=== PATIENT | male | born 1930 | race Caucasian/White ===

== ENCOUNTER 2017-08-02 15:06 | Emergency (ER) | payer MEDICARE ==
[~2017-08-02] VITALS: Ht 175.3 cm; Wt 95.0 kg
[~2017-08-02 15:06] MED LIST: PRED20 PO; PROS5TAB2 PO; RANI300T PO; TERA5CAP34 PO; ZYRT10TA12 PO
[2017-08-02 15:10] VITALS: BP 131/65; PULSE 100; RESP 18; TEMP 98.2; O2SAT 95
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
[2017-08-02] MEDS ORDERED: TERA5CAP3 PO (15:42)
[2017-08-02] MEDS ORDERED: TAMS5CAP PO (15:42)
[2017-08-02] MEDS ORDERED: KETOROLAC TROMETHAMINE 60 MG/2 ML (IM) VIAL IM ONE (15:45)
[2017-08-02] MEDS ORDERED: ORPHENADRINE INJ 60 MG/2 ML AMP IM ONE (15:45)
[2017-08-02] MEDS ORDERED: MORPHINE SULFATE 8 MG/ML INJ IM ONE (15:45)
[2017-08-02 16:24] VITALS: RESP 18
--- NOTE | 2017-08-02 17:24 | RADRPT ---
EXAM DATE/TIME: 08/02/2017 16:52 [facility] COMPARISON: CT BRAIN W/O CONTRAST, September 16, 2013, 13:10. INDICATIONS : Cephalgia. RADIATION DOSE: 59.16 CTDIvol (mGy) MEDICAL HISTORY : Gastroesophageal reflux disease. Hypertension. SURGICAL HISTORY : Appendectomy. Cholecystectomy. ENCOUNTER: Initial ACUITY: 3 days PAIN SCALE: 5/10 LOCATION: cranial TECHNIQUE: Multiple contiguous axial images were obtained of the head. Using automated exposure control and adj ustment of the mA and/or kV according to patient size, radiation dose was kept as low as reasonably a chievable to obtain optimal diagnostic quality images. DICOM format image data is available electro nically for review and comparison. FINDINGS: CEREBRUM: The ventricles are normal for age. No evidence of midline shift, mass lesion, hemorrhage or acute in farction. No extra-axial fluid collections are seen. POSTERIOR FOSSA: The cerebellum and brainstem are intact. The 4th ventricle is midline. The cerebellopontine angle i s unremarkable. EXTRACRANIAL: The visualized portion of the orbits is intact. SKULL: The calvaria is intact. No evidence of skull fracture. CONCLUSION: Negative for an acute process. Tesfaye Medina MD FACR on August 02, 2017 at 17:22 Board Certified Radiologist. This report was verified electronically.
--- NOTE | 2017-08-02 17:30 | RADRPT ---
EXAM DATE/TIME: 08/02/2017 16:52 [facility] COMPARISON: CT CERVICAL SPINE W/O CONTRAST, September 16, 2013, 13:10. INDICATIONS : Right neck pain. RADIATION DOSE: 26.51 CTDIvol (mGy) MEDICAL HISTORY : Gastroesophageal reflux disease. Hypertension. SURGICAL HISTORY : Appendectomy. Cholecystectomy. ENCOUNTER: Initial ACUITY: 3 days PAIN SCALE: 9/10 LOCATION: Right neck TECHNIQUE: Volumetric scanning of the cervical spine was performed. Multiplanar reconstructions in the sagittal, coronal and oblique axial planes were performed. Using automated exposure control and adjustment o f the mA and/or kV according to patient size, radiation dose was kept as low as reasonably achievable to obtain optimal diagnostic quality images. DICOM format image data is available electronically f or review and comparison. FINDINGS: VERTEBRAE: Normal vertebral body height. ALIGNMENT: No evidence of subluxation. C2-C3: Mild facet disease is present bilateral neural foramina encroachment. C3-C4: Moderate facet disease is present bilateral neural foramina encroachment. C4-C5: Mild facet disease worse on the right than left with significant neural foraminal encroachment. Ther e is no significant spinal stenosis. C5-C6: Moderate bilateral foraminal encroachment worse on the right than the left. Mild to moderate spinal stenosis. C6-C7: Mild uncinate ridging present with minimal bilateral foraminal encroachment. C7-T1: The bony spinal canal is normal in size. No evidence of disc bulge or herniation. The neural forami na are bilaterally patent. CONCLUSION: Degenerative changes as described above predominantly neural foramina encroachment no t fracture. Tesfaye Medina MD FACR on August 02, 2017 at 17:27 Board Certified Radiologist. This report was verified electronically.
[2017-08-02] MEDS ORDERED: CYCL5TAB PO (18:00)
[2017-08-02] MEDS ORDERED: HYDR-3516 PO (18:00)
== END 2017-08-02 18:23 | disposition home or self-care (01) ==
LOC: PHEFT 15:06
DX: M62.838 Other muscle spasm (principal); M43.6 Torticollis; E11.9 Type 2 diabetes mellitus without complications; I10 Essential (primary) hypertension; E78.00 Pure hypercholesterolemia, unspecified; Z87.39 Personal history of other diseases of the musculoskeletal system and connective tissue; Z86.79 Personal history of other diseases of the circulatory system; Z87.19 Personal history of other diseases of the digestive system; Z86.69 Personal history of other diseases of the nervous system and sense organs
CPT/HCPCS: 70450; 72125; 96372; 99284; J1885; J2270; J2360

== ENCOUNTER → 2017-09-09 | Day surgery (SDC) | payer MEDICARE ==
[~2017-09-09] MED LIST changes: +CYCL5TAB PO; +HYDR-3516 PO; +LACTATED RINGER'S 1000 ML INJ 1,000 ML ONE; -PRED20 PO; +PROPOFOL 200 MG/20 ML AMP IV ONE; -PROS5TAB2 PO; -RANI300T PO; +TAMS5CAP PO; +TERA5CAP3 PO; -TERA5CAP34 PO; -ZYRT10TA12 PO
--- NOTE | 2017-09-09 12:32 | GIPROC ---
[facility] [address] [place], [address] COLONOSCOPY PROCEDURE REPORT EXAM DATE: 09/09/2017 PATIENT NAME: Daljit Hgaen MR #: [id number] BIRTHDATE: 1930 ENDOSCOPIST: Dale Stroud MD ORDER #: [id number] SEWER HEAD: Melvina Reid RN STATUS: outpatient INDICATIONS: The patient is a 87 yr old male here for a colonoscopy due to anemia, non-specific PROCEDURE PERFORMED: Colonoscopy with polypectomy MEDICATIONS: None and Per Anesthesia. PREP QUALITY: good ESTIMATED BLOOD LOSS: None CONSENT: The patient understands the risks and benefits of the procedure and understands that these risks include, but are not limited to: sedation, allergic reaction, infection, perforation and/or bleeding. Alternative means of evaluation and treatment include, among others: physical exam, x-rays, and/or surgical intervention. The patient elects to proceed with this endoscopic procedure. medical equipment was checked for proper function. Hand hygiene and appropriate measures for infection prevention was taken. After the risks, benefits and alternatives of the procedure were thoroughly explained, Informed consent was verified, confirmed and timeout was successfully executed by the treatment team. A digital exam revealed no abnormalities of the rectum The EC-[id number] ([id number] endoscope was introduced through the anus and advanced to the cecum, which was identified by both the appendix and ileocecal valve. The instrument was then slowly withdrawn as the colon was fully examined. COLON FINDINGS: A small smooth sessile polyp was found in the distal transverse colon. A polypectomy was performed with a cold snare. The resection was complete and the polyp tissue was completely retrieved. Severe diverticulosis was noted in the descending colon and sigmoid colon. The colon mucosa was otherwise normal. Retroflexed views revealed no abnormalities The scope was then completely withdrawn from the patient and the procedure terminated. PROCEDURE WITHDRAWAL TIME:6.3minutes ADVERSE EVENTS: There were no complications. IMPRESSIONS: 1. A small sessile polyp was found in the distal transverse colon; polypectomy was performed with a cold snare 2. Severe diverticulosis was noted in the descending colon and sigmoid colon 3. The colon mucosa was otherwise normal 4. Retroflexed views revealed no abnormalities 5. Revealed no abnormalities of the rectum RECOMMENDATIONS: 1. Await biopsy results. Biopsy results will not be ready for 7-10 days. If you don't hear from us in two weeks, call our office for results. 2. Yearly hemoccult 3. High fiber diet 4. Follow-up: GI Clinic 4 week(s) RECALL: Return 5 years Colonoscopy Dale Stroud MD eSigned: Dale Stroud MD 09/09/2017 12:31 PM cc: Marvel Smith M.D and Mike Hillman [facility] [place]
--- NOTE | 2017-09-09 12:37 | GIPROC ---
[facility] [address] [place], [address] EGD PROCEDURE REPORT EXAM DATE: 09/09/2017 PATIENT NAME: Daljit Hagen MR #: [id number] BIRTHDATE: 1930 ATTENDING: Dale Stroud MD ORDER #: [id number] CYLINDER HONER: Melvina Reid RN STATUS: outpatient INDICATIONS: The patient is a 87 yr old male here for an EGD due to anemia PROCEDURE PERFORMED: EGD w/ biopsy MEDICATIONS: None, Per Anesthesia, None, and Per Anesthesia. TOPICAL ANESTHETIC: CONSENT: The patient understands the risks and benefits of the procedure and understands that these risks include, but are not limited to: sedation, allergic reaction, infection, perforation and/or bleeding. Alternative means of evaluation and treatment include, among others: physical exam, x-rays, and/or surgical intervention. The patient elects to proceed with this endoscopic procedure. medical equipment was checked for proper function. Hand hygiene and appropriate measures for infection prevention was taken. After the risks, benefits and alternatives of the procedure were thoroughly explained, Informed consent was verified, confirmed and timeout was successfully executed by the treatment team. The patient was anesthetized with topical anesthesia and the EC-3490Li ([id number]) endoscope was introduced through the mouth and advanced to the second portion of the duodenum. Retroflexed views revealed no abnormalities The gastroscope was then slowly withdrawn and removed. ESOPHAGUS: A mildly severe Schatzki ring was found at the gastroesophageal junction. The endoscopy was otherwise normal. Duodenal biopsies taken. STOMACH: A large hiatal hernia was noted. There was erythematous moderate and erosive gastritis in the gastric body and gastric antrum. Multiple biopsies were performed. DUODENUM: Duodenal diverticlum. ADVERSE EVENTS: There were no complications. IMPRESSIONS: 1. Schatzki ring was found at the gastroesophageal junction 2. Normal endoscopy otherwise 3. Large hiatal hernia 4. There was erythematous gastritis in the gastric body and gastric antrum; multiple biopsies were performed 5. Duodenal diverticlum 6. Retroflexed views revealed no abnormalities RECOMMENDATIONS: 1. Await biopsy results. Biopsy results will not be ready for 7-10 days. If you don't hear from us in two weeks, call our office for biopsy results. 2. Follow-up: GI clinic 3 week(s) PATIENT CONDITION: stable DISPOSITION: Home REPEAT EXAM: Dale Stroud MD eSigned: Dale Stroud MD 09/09/2017 12:36 PM cc: Marvel Hillman [facility] [place] PATIENT NAME: Xiao Daljit Mellisa MR#: [id number]
== END | disposition home or self-care (01) ==
LOC: ESDC 10:15
PROVIDERS: ATTEND Internal Medicine Gastroenterology
DX: D64.9 Anemia, unspecified (principal); D12.3 Benign neoplasm of transverse colon; K57.90 Diverticulosis of intestine, part unspecified, without perforation or abscess without bleeding; K22.2 Esophageal obstruction; K44.9 Diaphragmatic hernia without obstruction or gangrene; K29.70 Gastritis, unspecified, without bleeding
CPT/HCPCS: 00740; 00810; 43239; 45385; 88305; 88312; J7120

== ENCOUNTER 2018-01-15 10:05 | Day surgery (SDC) | payer MEDICARE ==
[~2018-01-15] VITALS: Ht 175.3 cm; Wt 93.2 kg
[~2018-01-15 10:05] MED LIST changes: +FLAX10002 PO; -LACTATED RINGER'S 1000 ML INJ 1,000 ML ONE; +MAGN100T2 PO; +MULT1TAB46 PO; +OMEGCAP PO; -PROPOFOL 200 MG/20 ML AMP IV ONE; +SOUR1000; +TIMO0.5S30 EACH EYE
[2018-01-15 10:22] VITALS: BP 172/85; PULSE 89; RESP 20; TEMP 98; O2SAT 95
[2018-01-15] MEDS ORDERED: VITA1000 PO (10:29)
[2018-01-15] MEDS ORDERED: FERR1TAB37 PO (10:29)
[2018-01-15 10:56] LABS: AUTOMATED NEUTROPHIL # 2.1 TH/MM3 (1.8-7.7); BASOPHIL % 0.3 % (0.0-2.0); EOSINOPHIL # 0.1 TH/MM3 (0-0.4); EOSINOPHIL % 2.2 % (0.0-4.0); HEMATOCRIT 27.6 % (39.0-51.0); HEMOGLOBIN 9.8 GM/DL (13.0-17.0); LYMPH % 23.1 % (9.0-44.0); LYMPHOCYTE # 0.9 TH/MM3 (1.0-4.8); MEAN CORPUSCULAR HEMOGLOBIN 40.7 PG (27.0-34.0); MEAN CORPUSCULAR HGB CONC 35.4 % (32.0-36.0); MEAN PLATELET VOLUME 7.6 FL (7.0-11.0); MONO % 17.9 % (0.0-8.0); MONOCYTE # 0.7 TH/MM3 (0-0.9); NEUT % 56.5 % (16.0-70.0); PLATELET COUNT 138 TH/MM3 (150-450); RED CELL DISTRIBUTION WIDTH 15.4 % (11.6-17.2); WHITE BLOOD COUNT 3.8 TH/MM3 (4.0-11.0)
[2018-01-15] MEDS ORDERED: SODIUM CHLOR 0.9% 1000 ML IV SCH (11:00)
[2018-01-15 11:08] LABS: INTERNATIONAL NORMALIZED RATIO 1.1 RATIO; PROTHROMBIN TIME - PATIENT 11.1 SEC (9.8-11.6)
[2018-01-15] MEDS ORDERED: LIDOCAINE HCL 1% 20 ML VIAL ONE (11:09)
[2018-01-15] MEDS ORDERED: fentaNYL CITRATE 250 MCG/5 ML AMP ONE (11:20)
[2018-01-15] MEDS ORDERED: MIDAZOLAM HCL 5 MG/5 ML VIAL ONE (11:20)
[2018-01-15 12:30] VITALS: BP 142/59; PULSE 82; RESP 18; TEMP 97.9; O2SAT 91
[2018-01-15 12:45] VITALS: BP 129/62; PULSE 78; RESP 20; O2SAT 95
[2018-01-15 13:15] VITALS: BP 135/76; PULSE 88; RESP 18; O2SAT 96
--- NOTE | 2018-01-15 13:34 | RADRPT ---
EXAM DATE/TIME: 01/15/2018 12:04 [facility] COMPARISON: No previous studies available for comparison. INDICATIONS : Pancytopenia and anemia. SEDATION TIME: 15 minutes BIOPSY SITE: Right ilium. MEDICATION(S): 1.) 2.5 mg midazolam (Versed) IV 2.) 125 mcg fentanyl (Sublimaze) IV DEVICE(S): 1.) 12 gauge Bone marrow biopsy needle MEDICAL HISTORY : Hypertension. Gastroesophageal reflux disease. Diabetes mellitus type 2. Anemia. SURGICAL HISTORY : Appendectomy. Cholecystectomy. ENCOUNTER: Initial ACUITY: 1 day PAIN SCORE: 0/10 LOCATION: Right pelvis A total of one core specimen(s) were obtained and sent to the laboratory for pathologic evaluation. PROCEDURE: 1. CT guided bone marrow biopsy. Prior to the procedure informed consent was obtained. Any appropriate prior imaging studies were rev iewed. Using automated exposure control and adjustment of the mA and/or kV according to patient size , radiation dose was kept as low as reasonably achievable to obtain optimal diagnostic quality images . DICOM format image data is available electronically for review and comparison. The site was prepped in a sterile fashion. Full sterile technique was used, including cap, mask, daniel rile gloves and gown and a large sterile sheet. Hand hygiene and 2% chlorhexidine and/or betadine/al cohol prep was utilized per protocol for cutaneous antisepsis. The skin and subcutaneous tissues wer e infiltrated with local anesthetic solution. With CT guidance the previously identified target was localized. Biopsy was performed using the presc ribed needle as above. Following biopsy marrow aspiration was performed with repeat puncture. Adequa te hemostasis was obtained with compression at the puncture site. Follow-up CT scan reveals no hemorrhage. Conscious sedation was performed with the prescribed dosages and duration as above in the presence of an independent trained radiology nurse to assist in the monitoring of the patient. EKG and oximetry remained stable throughout the procedure. The patient tolerated the procedure well and there were no complications. The patient was sent to Radiology Outpatient Unit in stable condition. CONCLUSION: 1. Uncomplicated CT guided bone marrow aspirate. 2. Uncomplicated CT guided bone marrow biopsy. Tesfaye Medina MD FACR on January 15, 2018 at 12:49 Board Certified Radiologist. This report was verified electronically.
[2018-01-15 13:45] VITALS: BP 129/60; PULSE 73; RESP 16; O2SAT 96
[2018-01-15 14:15] VITALS: BP 134/63; PULSE 73; RESP 18; O2SAT 97
== END 2018-01-15 14:45 | disposition home or self-care (01) ==
LOC: HRIP 10:05 → HRAD 10:05
PROVIDERS: ATTEND Internal Medicine Hematology & Oncology
DX: D61.818 Other pancytopenia (principal); D75.89 Other specified diseases of blood and blood-forming organs; D46.9 Myelodysplastic syndrome, unspecified; I10 Essential (primary) hypertension; K21.9 Gastro-esophageal reflux disease without esophagitis; E11.9 Type 2 diabetes mellitus without complications; E78.00 Pure hypercholesterolemia, unspecified; K44.9 Diaphragmatic hernia without obstruction or gangrene
CPT/HCPCS: 38222; 77012; 85025; 85097; 85610; 85730; 88184; 88185; 88237; 88264; 88280; 88305; 88311; 88313; 88341; 88342; 99152; C1830; G0463; J2250; J3010; 99211

== ENCOUNTER 2018-01-25 16:02 | Observation (INO) | payer MEDICARE ==
[~2018-01-25] VITALS: Ht 175.3 cm; Wt 87.0 kg
[~2018-01-25 16:02] MED LIST changes: -CYCL5TAB PO; +FERR1TAB37 PO; -HYDR-3516 PO; -TAMS5CAP PO; -TIMO0.5S30 EACH EYE; +VITA1000 PO
[2018-01-25 16:07] VITALS: BP 153/65; PULSE 102; RESP 16; TEMP 98.6; O2SAT 93
[2018-01-25] MEDS ORDERED: SODIUM CHLORIDE 0.9% FLUSH 10 ML FLUSH IV FLUSH PRN (16:30)
[2018-01-25] MEDS ORDERED: ONDANSETRON HCL 4 MG/2 ML VIAL IVP ONE (16:30)
[2018-01-25] MEDS ORDERED: MORPHINE SULFATE 4 MG/ML INJ IV PUSH ONE (16:30)
[2018-01-25 16:52] LABS: BASOPHIL % 0.6 % (0.0-2.0); EOSINOPHIL % 1.1 % (0.0-4.0); HEMATOCRIT 27.8 % (39.0-51.0); HEMOGLOBIN 9.6 GM/DL (13.0-17.0); LYMPH % 14.4 % (9.0-44.0); LYMPHOCYTE # 0.6 TH/MM3 (1.0-4.8); MEAN CELL VOLUME 116.7 FL (80.0-100.0); MEAN CORPUSCULAR HEMOGLOBIN 40.2 PG (27.0-34.0); MEAN CORPUSCULAR HGB CONC 34.4 % (32.0-36.0); MEAN PLATELET VOLUME 6.8 FL (7.0-11.0); MONO % 16.6 % (0.0-8.0); MONOCYTE # 0.7 TH/MM3 (0-0.9); NEUT % 67.3 % (16.0-70.0); PLATELET COUNT 176 TH/MM3 (150-450); RED BLOOD COUNT 2.39 MIL/MM3 (4.50-5.90); RED CELL DISTRIBUTION WIDTH 15.2 % (11.6-17.2); WHITE BLOOD COUNT 4.3 TH/MM3 (4.0-11.0)
--- NOTE | 2018-01-25 16:58 | PD ---
HPI Chief Complaint: Musculoskeletal Complaint Time Seen by Provider: 16:15 Travel History International Travel<30 days: No Contact w/Intl Traveler<30days: No Traveled to known affect area: No History of Present Illness HPI 87-year-old male that presents to the ED for evaluation of right-sided back pain. Per patient she's had this on and off for the past 3 weeks but more severe since Saturday. Per patient for the past 5 days is becoming more significant. Per patient walking or moving makes it worse. Per patient he makes like a band on the right side into the front. He states that he also has some abdominal pain around the upper quadrant of the right side as well as the lower quadrant. Denies any bowel movement or urinary issues. She states when he had pain like this before he was told that he had something with his cecum that reversing itself and he was told that he could have this again. He is concerned that this might be it. He denies any chest pain or shortness of breath. No injuries or trauma. Per patient he is taking some ihdp-yam-exengoe remedies with no relief. Allergy to amoxicillin. No bowel movement or urinary issues. Denies any nausea or vomiting. Per patient the pain gets to be significantly 8 out of 10 especially with movement. No history of surgeries to the back but multiple surgeries to the abdomen. PFSH Past Medical History Arthritis: Yes Autoimmune Disease: No Blood Disorders: No Anxiety: No Depression: No Heart Rhythm Problems: No Cancer: No Cardiovascular Problems: No High Cholesterol: Yes Chemotherapy: No Chest Pain: No Congestive Heart Failure: No Diabetes: No Diminished Hearing: No Endocrine: No Gastrointestinal Disorders: Yes GERD: Yes Glaucoma: No Genitourinary: Yes Hepatitis: No Hiatal Hernia: No Hypertension: Yes Immune Disorder: No Kidney Stones: No Musculoskeletal: Yes (sciatia) Neurologic: No Psychiatric: No Reproductive: No Respiratory: No Myocardial Infarction: No Radiation Therapy: No Renal Failure: No Sickle Cell Disease: No Thyroid Disease: No Ulcer: Yes Past Surgical History Abdominal Surgery: Yes (APPENDECTOMY, CHOLOCYSTECTOMY) AICD: No Appendectomy: Yes Arteriovenous Shunt: No Cardiac Surgery: No Cholecystectomy: Yes Ear Surgery: No Endocrine Surgery: No Eye Surgery: Yes (BILAT CATARACT REMOVAL 2016) Genitourinary Surgery: No Gynecologic Surgery: No Insulin Pump: No Joint Replacement: No Oral Surgery: No Pacemaker: No Thoracic Surgery: No Other Surgery: Yes (x 30 yrs ago appendectomy, cholecystectomy, lumbar surgery x 47yrs ago) Social History Alcohol Use: No Tobacco Use: No Substance Use: No Allergies-Medications (Allergen,Severity, Reaction): Coded Allergies: amoxicillin (Verified Allergy, Intermediate, rash, 01/25/18) Reported Meds & Prescriptions Reported Meds & Active Scripts Active Hydrocodone-Acetamin 5-325 mg (Hydrocodone/Acetaminophen) 5 Mg-325 Mg Tablet 1 Tab PO Q6HR PRN Reported Slow Fe (Ferrous Sulfate) 142 Mg (45 Mg Iron) Tablet.er 47 Mg PO DAILY Vitamin D-1000 (Cholecalciferol) 1,000 Unit Tab 2,000 Units PO DAILY Tart Awad Extract (Sour Awad Extract) 1,000 Mg Capsule Multi Vitamin Daily (Multiple Vitamin) 1 Tab Tab 1 Tab PO DAILY Magnesium Citrate 100 Mg Tab 250 Mg PO DAILY PRN Flax Seed Oil 1000 mg (Flaxseed (Linseed)) 1,000 Mg Cap 1,000 Mg PO DAILY [place]-3 Fish Oil/Vitamin (Fish Oil-Cholecalciferol) 1,000-1,000 Mg Cap 1 Cap PO DAILY Terazosin (Terazosin HCl) 5 Mg Cap 5 Mg PO BID Review of Systems Except as stated in HPI: all other systems reviewed are Neg Physical Exam Narrative GENERAL: SKIN: Warm and dry. HEAD: Atraumatic. Normocephalic. EYES: Pupils equal and round. No scleral icterus. No injection or drainage. ENT: No nasal bleeding or discharge. Mucous membranes pink and moist. NECK: Trachea midline. No JVD. CARDIOVASCULAR: Regular rate and rhythm. RESPIRATORY: No accessory muscle use. Clear to auscultation. Breath sounds equal bilaterally. GASTROINTESTINAL: Abdomen soft, tender to touch in the right upper quadrant and right lower quadrant., nondistended. Hepatic and splenic margins not palpable. MUSCULOSKELETAL: Extremities without clubbing, cyanosis, or edema. No obvious deformities. Full range of motion of the upper and lower extremities bilaterally. No obvious lumbar, thoracic, cervical spine tenderness to palpation. Patient does appear to have some pain reproducible on the musculature of the right back. 2+ pulses bilaterally. NEUROLOGICAL: Awake and alert. No obvious cranial nerve deficits. Motor grossly within normal limits. Five out of 5 muscle strength in the arms and legs. Normal speech. PSYCHIATRIC: Appropriate mood and affect; insight and judgment normal. Data Data Last Documented VS Vital Signs Date Time Temp Pulse Resp B/P (MAP) Pulse Ox O2 Delivery O2 Flow Rate FiO2 01/25/18 19:16 92 20 139/62 (87) 93 Nasal Cannula 2.00 01/25/18 16:07 98.6 Orders Orders Complete Blood Count With Diff (01/25/18 16:24) Comprehensive Metabolic Panel (01/25/18 16:24) Lipase (01/25/18 16:24) Urinalysis - C+S If Indicated (01/25/18 16:24) Ct Abd/Pel W Iv Contrast(Rout) (01/25/18 16:24) Iv Access Insert/Monitor (01/25/18 16:24) Morphine Inj (Morphine Inj) (01/25/18 16:30) Ondansetron Inj (Zofran Inj) (01/25/18 16:30) Sodium Chloride 0.9% Flush (Ns Flush) (01/25/18 16:30) Ct Lumb Spine W Iv Contrast (01/25/18 ) Iohexol 350 Inj (Omnipaque 350 Inj) (01/25/18 17:54) Ed Discharge Order (01/25/18 18:22) Iohexol 350 Inj (Omnipaque 350 Inj) (01/25/18 18:23) Acetamin-Hydrocod 325-5 Mg ([place] 5-325 (01/25/18 18:45) Splint Or Brace Apply/Monitor (01/25/18 18:55) Admit Order (Ed Use Only) (01/25/18 19:33) Labs Laboratory Tests Test 01/25/18 16:45 White Blood Count 4.3 TH/MM3 Red Blood Count 2.39 MIL/MM3 Hemoglobin 9.6 GM/DL Hematocrit 27.8 % Mean Corpuscular Volume 116.7 FL Mean Corpuscular Hemoglobin 40.2 PG Mean Corpuscular Hemoglobin Concent 34.4 % Red Cell Distribution Width 15.2 % Platelet Count 176 TH/MM3 Mean Platelet Volume 6.8 FL Neutrophils (%) (Auto) 67.3 % Lymphocytes (%) (Auto) 14.4 % Monocytes (%) (Auto) 16.6 % Eosinophils (%) (Auto) 1.1 % Basophils (%) (Auto) 0.6 % Neutrophils # (Auto) 3.0 TH/MM3 Lymphocytes # (Auto) 0.6 TH/MM3 Monocytes # (Auto) 0.7 TH/MM3 Eosinophils # (Auto) 0.0 TH/MM3 Basophils # (Auto) 0.0 TH/MM3 CBC Comment DIFF FINAL Differential Comment Blood Urea Nitrogen 19 MG/DL Creatinine 0.78 MG/DL Random Glucose 118 MG/DL Total Protein 8.2 GM/DL Albumin 3.3 GM/DL Calcium Level 9.1 MG/DL Alkaline Phosphatase 139 U/L Aspartate Amino Transf (AST/SGOT) 18 U/L Alanine Aminotransferase (ALT/SGPT) 16 U/L Total Bilirubin 1.1 MG/DL Sodium Level 138 MEQ/L Potassium Level 3.5 MEQ/L Chloride Level 101 MEQ/L Carbon Dioxide Level 27.2 MEQ/L Anion Gap 10 MEQ/L Estimat Glomerular Filtration Rate 94 ML/MIN Lipase 71 U/L MDM Medical Decision Making Medical Screen Exam Complete: Yes Emergency Medical Condition: Yes Medical Record Reviewed: Yes Interpretation(s) CBC & BMP Diagram 01/25/18 16:45 Total Protein 8.2, Albumin 3.3 L, Calcium Level 9.1, Alkaline Phosphatase 139 H , Aspartate Amino Transf (AST/SGOT) 18, Alanine Aminotransferase (ALT/SGPT) 16, Total Bilirubin 1.1 H Last Impressions Abdomen/Pelvis CT 01/25/18 1624 Signed Impressions: Service Date/Time: Thursday, January 25, 2018 17:51 - CONCLUSION: 1. No acute abnormality to explain the patient's pain. 2. Bibasilar atelectasis. 3. Prior cholecystectomy. Kaiser Guevara Jr., MD Last Impressions Abdomen/Pelvis CT 01/25/184 Signed Impressions: Service Date/Time: Thursday, January 25, 2018 17:51 - CONCLUSION: 1. No acute abnormality to explain the patient's pain. 2. Bibasilar atelectasis. 3. Prior cholecystectomy. Kaiser Guevara Jr., MD Lumbar Spine CT 01/25/18 0000 Signed Impressions: Service Date/Time: Thursday, January 25, 2018 17:51 - CONCLUSION: 1. Mild compression fracture of T12 and moderate compression fracture of L5. 2. 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 3. Diffuse osteopenia. Marshall Perry MD Differential Diagnosis Fracture versus sprain versus strain versus acute abdomen versus obstruction versus liver injury versus kidney stone Narrative Course 87-year-old male that presents to the ED for evaluation of back pain. Patient was properly examined and was found to have signs and symptoms of unclear etiology. He also has abdominal pain and unclear if this is related to the back pain. I recommend labs and imaging. Patient agrees. Patient was given IV pain medications. Labs and imaging showed no sign of acute disease. CT lumbar spine did show however T12 and L5 compression fracture. Case discussed with Dr Luque who recommends 1) pain meds, TLSO and follow up outpatient if pain manageable. vs 2) admit and consult to him for PT and pain management and possible khypoplasty if no improvement. Patient still in a lot of discomfort with just sitting up. Even after pain meds given. He lives alone. I think is reasonable to admit for further eval. This was discussed with Dr Banda who agrees with admission plan. [facility] contacted and Dr Craig said to admit to Dr Paulson for patient to got to the main due to possible kyphoplasty. Diagnosis Primary Impression: Compression fracture of fifth lumbar vertebra Qualified Codes: S32.050A - Wedge compression fracture of fifth lumbar vertebra, initial encounter for closed fracture Additional Impression: T12 compression fracture Admitting Information Admitting Physician Requests: Observation Scripts Hydrocodone/Acetaminophen (Hydrocodone-Acetamin 5-325 mg) 5 Mg-325 Mg Tablet 1 TAB PO Q6HR Y for PAIN SCALE 1 TO 10, #12 Prov: Didier Banda MD 01/25/18 Vikash Alvarado Jan 25, 2018 16:58
[2018-01-25 17:01] LABS: CHLORIDE 101 MEQ/L (98-107); SODIUM (NA) 138 MEQ/L (136-145)
[2018-01-25 17:05] LABS: CALCIUM 9.1 MG/DL (8.5-10.1)
[2018-01-25 17:06] LABS: ALBUMIN 3.3 GM/DL (3.4-5.0); BICARBONATE 27.2 MEQ/L (21.0-32.0); BLOOD UREA NITROGEN 19 MG/DL (7-18); GLUCOSE,RANDOM 118 MG/DL (74-106)
[2018-01-25 17:09] LABS: ALT (GPT) 16 U/L (12-78); AST (GOT) 18 U/L (15-37); CREATININE 0.78 MG/DL (0.60-1.30); GLOMERULAR FILTRATION RATE 94 ML/MIN (>89)
[2018-01-25 17:10] LABS: TOTAL BILIRUBIN ADULT 1.1 MG/DL (0.2-1.0)
[2018-01-25 17:12] LABS: ALKALINE PHOSPHATASE 139 U/L (45-117); TOTAL PROTEIN 8.2 GM/DL (6.4-8.2)
[2018-01-25] MEDS ORDERED: IOHEXOL 350 MG/ML 10 ML VIAL (for RAD DIAG) IVCONTRAST ONE ×2 (17:54→18:23)
[2018-01-25 18:00] VITALS: BP 146/65; RESP 20
--- NOTE | 2018-01-25 18:08 | RADRPT ---
EXAM DATE/TIME: 01/25/2018 17:51 [facility] COMPARISON: No previous studies available for comparison. INDICATIONS : Abdomen pain. IV CONTRAST: 100 cc Omnipaque 350 (iohexol) IV ; Cumulative dose for multiple exams. ORAL CONTRAST: No oral contrast ingested. RADIATION DOSE: 19.98 CTDIvol (mGy) MEDICAL HISTORY : Hypertension. SURGICAL HISTORY : Cholecystectomy. Appendectomy.discectomy. ENCOUNTER: Initial ACUITY: 1 day PAIN SCALE: 5/10 LOCATION: Bilateral abdomen TECHNIQUE: Volumetric scanning of the abdomen and pelvis was performed. Using automated exposure control and ad justment of the mA and/or kV according to patient size, radiation dose was kept as low as reasonably achievable to obtain optimal diagnostic quality images. DICOM format image data is available electro nically for review and comparison. FINDINGS: LOWER LUNGS: Bibasilar atelectasis. The heart is at the upper limits of normal in terms of size. Small hiatal madonna ia. LIVER: Homogeneous density without lesion. There is no dilation of the biliary tree. Gallbladder is surgica lly absent. SPLEEN: Normal size without lesion. PANCREAS: Within normal limits. KIDNEYS: Normal in size and shape. There is no mass, stone or hydronephrosis. Tiny cortical renal cysts bilat erally. ADRENAL GLANDS: Within normal limits. VASCULAR: Diffuse calcified atherosclerotic plaque. No aneurysmal change. BOWEL/MESENTERY: The stomach, small bowel, and colon demonstrate no acute abnormality. There is no free intraperitone al air or fluid. ABDOMINAL WALL: Small umbilical hernia containing fat. This is broad-based in nature. RETROPERITONEUM: There is no lymphadenopathy. BLADDER: No wall thickening or mass. REPRODUCTIVE: Within normal limits. INGUINAL: There is no lymphadenopathy or hernia. MUSCULOSKELETAL: Within normal limits for patient age. CONCLUSION: 1. No acute abnormality to explain the patient's pain. 2. Bibasilar atelectasis. 3. Prior cholecystectomy. Kaiser Guevara Jr., MD on January 25, 2018 at 18:01 Board Certified Radiologist. This report was verified electronically.
[2018-01-25] MEDS ORDERED: HYDR-3516 PO (18:22)
--- NOTE | 2018-01-25 18:32 | RADRPT ---
EXAM DATE/TIME: 01/25/2018 17:51 [facility] COMPARISON: No previous studies available for comparison. INDICATIONS : Back pain IV CONTRAST: 100 cc Omnipaque 350 (iohexol) IV ; Cumulative dose for multiple exams. RADIATION DOSE: ; Reconstructed from previous dataset, no dose MEDICAL HISTORY : Hypertension. SURGICAL HISTORY : Cholecystectomy. Appendectomy.discectomy ENCOUNTER: Initial ACUITY: 1 day PAIN SCALE: 5/10 LOCATION: Bilateral lumbar TECHNIQUE: Volumetric scanning of the lumbar spine was performed. Multiplanar reconstructions in the sagittal, coronal and oblique axial planes were performed. Using automated exposure control and adjustment of the mA and/or kV according to patient size, radiation dose was kept as low as reasonably achievable t o obtain optimal diagnostic quality images. DICOM format image data is available electronically for review and comparison. FINDINGS: The bones are diffusely osteopenic. There is a mild compression fracture of T12 without retropulsion. There is a moderate compression fracture of L5 also without significant retropulsion. There is no significant stenosis at [id number]. At L2-3 there is a mild central canal lateral recess s tenosis and disc bulge and facet arthropathy. At L3-4 minimal lateral recess encroachment without significant central canal stenosis. At L4-5 there is a focal moderate to severe central canal stenosis from degenerative disc disease and facet arthropathy. At L5-S1 there is moderate bilateral foraminal stenosis. CONCLUSION: 1. Mild compression fracture of T12 and moderate compression fracture of L5. 2. 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 3. Diffuse osteopenia. Marshall Perry MD on January 25, 2018 at 18:25 Board Certified Radiologist. This report was verified electronically.
[2018-01-25] MEDS ORDERED: ACETAMINOPHEN/HYDROcodone 325 MG/5 MG TAB PO ONE (18:45)
[2018-01-25 19:16] VITALS: BP 139/62; PULSE 92; RESP 20; O2SAT 93
[2018-01-25] MEDS: TERAZOSIN HCL 5 MG CAP PO SCH (20:59)
[2018-01-25 21:17] VITALS: BP 134/53; PULSE 84; RESP 18; O2SAT 95
[2018-01-25 22:14] VITALS: BP 146/65
[2018-01-25] MEDS ORDERED: ONDANSETRON HCL 4 MG/2 ML VIAL IV PUSH ONE (22:15)
[2018-01-25] MEDS ORDERED: MORPHINE SULFATE 2 MG/ML INJ IV PUSH ONE (22:15)
[2018-01-25] MEDS: SODIUM CHLOR 0.9% 1000 ML INJ 1,000 ML IV SCH (23:04)
[2018-01-26] VITALS: BP 129/59; PULSE 82; RESP 18; TEMP 96.8; O2SAT 96
--- NOTE | 2018-01-26 03:46 | MH ---
cc: Raphael Craig MD DATE OF ADMISSION: 01/25/2018 ADMISSION DIAGNOSES: 1. Compression fracture of T12 and L5 with mild compression of T12 and moderate compression of L5. 2. Significant back pain secondary to compression fractures. 3. Type 3 diabetes mellitus. 4. Hypertension. 5. Benign prostatic hypertrophy. 6. High grade myelodysplastic syndrome with pancytopenia on recent bone marrow biopsy on 01/15/2018. 7. Mild hyperlipidemia. 8. Osteoarthritis. 9. History of colon polyps. PERTINENT HISTORY: This 87-year-old white male came to the ED because of the last 5 days he has been having increasing pain in his lower back. It sometimes radiates around to the right side into the front. He lives alone and it has been hard for him to get up and around. His appetite has been a little diminished as a result of this also. He has not recent fall or trauma. He has been using Tylenol for pain at home. He denies using any codeine. He came to the ED and had a CT scan done of the abdomen and lumbar spine. His CT of the abdomen showed no acute process. His CT lumbar spine showed mild compression fracture of T12 and moderate compression fracture of L5 with some diffuse osteopenia. There was some focal ____ severe central canal stenosis at L4-L5. He has a prior diskectomy of what sounds like L5-S2 many years ago. The ER physician talked with the neurosurgeon who suggested admission for pain control and consideration of possible kyphoplasty. The patient is not able to get around at home and he does live at home. He is going to be admitted up to the main hospital in case he requires kyphoplasty. MEDICAL HISTORY: He has type 2 diabetes mellitus that he is just on diet therapy. He has hypertension and BPH and uses terazosin for both of these. He has recently been evaluated for chronic anemia by renovation plant supervisor Dr. Acosta and had a bone marrow biopsy on 01/15/2018 because of pancytopenia. He has macrocytosis. His bone marrow results are in the computer and suggest that he has a high grade myelodysplastic syndrome with some blasts. He has not seen Dr. Acosta since this was done. He denies any heart disease, liver disease, kidney disease, denies any lung disease, no prior stroke. No thyroid disease. He has had some mild hyperlipidemia. He has never been put on any medicine. He had a colon removed 09/09/2017. He had an upper endoscopy done on 09/09/2017 with gastritis, hiatal hernia. He apparently had a capsule endoscopy also for his anemia workup. SURGICAL HISTORY: He has had cholecystectomy and appendectomy and lumbar L5-S1 diskectomy. He has had bilateral cataract extraction and lens implant. He had the colonoscopy and EGD as mentioned on . ALLERGIES: AMOXICILLIN. CURRENT MEDICATIONS: He is on terazosin 5 mg twice a day. He uses Tylenol for his back pain. He takes fish oil, omega 3, one day, flax seed oil 1000 mg a day, multivitamin 1 a day, vitamin D 2000 units daily. He takes an iron tablet one a day. FAMILY HISTORY: His father at 94 of old age. Mother at 83 of CHF. SOCIAL HISTORY: He never . He lives alone. He does not use alcohol. Never smoked. 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 REVIEW OF SYSTEMS: GENERAL: No fever, chills, sweats. HEENT: Denies any runny nose or sore throat or vision complaints. CARDIOVASCULAR: No chest pain, orthopnea, PND. PULMONARY: No cough, hemoptysis, wheezing. GASTROINTESTINAL: No melena, rectal bleeding or constipation, diarrhea. GENITOURINARY: Without hematuria or dysuria. MUSCULOSKELETAL: Back pain as mentioned. NEUROLOGIC: Without any problem with confusion or history of stroke or seizures. No numbness. PHYSICAL EXAMINATION: GENERAL: Pleasant elderly white male in no acute distress. VITAL SIGNS: His temperature is afebrile, pulse 92, respirations 20, BP 139/62, O2 sat 93% on room air. HEENT: TMs clear. Pupils equal. Sclerae nonicteric. Nose without lesions. Mouth without inflammation or lesions. NECK: Without JVD. No adenopathy, no thyromegaly. HEART: Regular rate and rhythm, no murmur. LUNGS: Clear. ABDOMEN: Soft, nontender, no masses. EXTREMITIES: No edema. Pulses palpated. BACK: With just discomfort on motion of his spine. SKIN: Negative. NEUROLOGIC: He moves all extremities equally. Sensation intact. Cranial nerves intact. LABORATORY DATA: His hemoglobin was 9.6 with an MCV of 116.7. His platelet count was actually okay at 176,000. His white count was okay at 4.3. He had 67.3% neutrophils, 14.4 lymphs, 16.6 monos. His BUN was 19, creatinine 0.78, glucose 118, bilirubin 1.1. AST, ALT normal. Alkaline phosphatase 139. Protein 8.2, albumin 3.3. Electrolytes normal. CT scan of the abdomen as mentioned, showed no acute abnormality. Some bibasilar atelectasis, prior cholecystectomy. Lumbar spine as mentioned with the compression fracture that was mild at T12 and moderate at L5 and moderate to severe central canal stenosis at L4-L5. ASSESSMENT: As noted. PLAN: He will be admitted to [facility]. Will put him on some Lortab 5 mg for his back pain. Neurosurgical consult with Dr. Das has been placed by the ED physician. Will use SCDs and MARY hose for DVT prophylaxis. Will give him some IV fluids since he has not eaten much in the last few days, just some normal saline at mild rate. MD CORNELL Haley/rt , 08:22 PM , 03:44 AM
[2018-01-26 04:00] VITALS: BP 143/63; PULSE 90; RESP 20; TEMP 97.6; O2SAT 95
[2018-01-26] MEDS: ACETAMINOPHEN/HYDROcodone 325 MG/5 MG TAB PO PRN ×3 (04:26→20:01)
[2018-01-26 07:46] VITALS: BP 131/60; PULSE 80; RESP 19; TEMP 96.6; O2SAT 95
[2018-01-26] MEDS: FERROUS SULFATE 325 MG (65 MG ELEMENTAL IRON) TAB PO SCH (08:56)
[2018-01-26] MEDS: CHOLECALCIFEROL (VIT D3) 1000 UNIT TAB PO SCH (08:57)
[2018-01-26] MEDS: MULTIVITAMIN TAB PO SCH (08:57)
[2018-01-26] MEDS: TERAZOSIN HCL 5 MG CAP PO SCH ×2 (08:58→20:01)
[2018-01-26] MEDS: SODIUM CHLOR 0.9% 1000 ML INJ 1,000 ML IV SCH (08:59)
[2018-01-26] MEDS ORDERED: NON-FORMULARY DRUG (Fish Oil-Cholecalciferol (Omega-3 Fish Oil/Vitamin) 1 CAP) PO SCH (09:00)
[2018-01-26] MEDS ORDERED: FLAXSEED 1000 MG PO SCH (09:00)
--- NOTE | 2018-01-26 11:01 | HHI.PR ---
Subjective Remarks worried that he may live the rest of his life with this pain Objective Vitals heart reg lung cta abd s/nt ext no edema Vital Signs Date Time Temp Pulse Resp B/P (MAP) Pulse Ox O2 Delivery O2 Flow Rate FiO2 01/26/18 07:46 96.6 80 19 131/60 (83) 95 01/26/18 04:58 18 01/26/18 04:00 97.6 90 20 143/63 (89) 95 01/26/18 00:00 96.8 82 18 129/59 (82) 96 01/25/18 23:24 18 01/25/18 22:14 100 20 146/65 (92) 95 Nasal Cannula 01/25/18 21:17 84 18 134/53 (80) 95 Nasal Cannula 01/25/18 19:16 92 20 139/62 (87) 93 Nasal Cannula 2.00 01/25/18 18:00 20 146/65 (92) 01/25/18 16:07 98.6 102 16 153/65 (94) 93 Result Diagram: 01/25/18 1645 01/25/18 1645 A/P Problem List: (1) Compression fracture of fifth lumbar vertebra ICD Codes: S32.050A - Wedge compression fracture of fifth lumbar vertebra, initial encounter for closed fracture Status: Acute Plan: 1. mod compression fx L5 with mod/severe central canal stenosis L4/5..Pt has mostly pain symptoms. Mild t12 comp fx. 2. MDS high grade. bone marrow bx on 01/15. follows with dr Santos. Pt transferred from [place] to see NSG and eval for possible intervention on L5 PT eval dvt prophylaxis pain control. (2) MDS (myelodysplastic syndrome) ICD Codes: D46.9 - Myelodysplastic syndrome, unspecified Status: Chronic Plan: above Problem Qualifiers (1) Compression fracture of fifth lumbar vertebra: Qualified Codes: S32.050A - Wedge compression fracture of fifth lumbar vertebra , initial encounter for closed fracture Gregory Robles MD Jan 26, 2018 11:00
[2018-01-26 11:37] VITALS: BP 129/57; PULSE 90; RESP 19; TEMP 97.7; O2SAT 93
[2018-01-26 12:23] LABS: BICARBONATE 28.1 MEQ/L (21.0-32.0); CALCIUM 7.9 MG/DL (8.5-10.1); CREATININE 0.58 MG/DL (0.60-1.30)
[2018-01-26 14:48] VITALS: BP 121/52; PULSE 80; RESP 18; TEMP 98; O2SAT 93
[2018-01-26 18:05] LABS: BILIRUBIN, URINE SMALL (NEG); BLOOD, URINE NEG (NEG); GLUCOSE,URINE NEG (NEG); HYALINE CAST, URINE 1 /lpf (RARE); KETONE, URINE 80 mg/dL (NEG); MUCUS URINE FEW /lpf (OCC); NITRITE,URINE NEG (NEG); PH, URINE 5.5 (5.0-8.5); URINE COLOR YELLOW (YELLW/STRAW); URINE LEUKOCYTE ESTERASE NEG (NEG)
[2018-01-26 20:00] VITALS: BP 130/57; PULSE 82; RESP 20; TEMP 99; O2SAT 97
--- NOTE | 2018-01-26 23:17 | PD.CONS ---
History of Present Illness Service Neurosurgery Consult Requested By Primary Care Physician Marvel Smith MD Diagnoses: History of Present Illness 87 yo male c/o 2 weeks of LBP much worse in the past week. No recent falls Review of Systems Constitutional: DENIES: Fever, Dizziness Eyes: DENIES: Blurred vision, Diplopia Ears, nose, mouth, throat: DENIES: Vertigo Respiratory: DENIES: Shortness of breath Cardiovascular: DENIES: Chest pain Gastrointestinal: DENIES: Abdominal pain, Vomiting Genitourinary: DENIES: Urinary incontinence Musculoskeletal: COMPLAINS OF: Joint pain, Muscle aches Hematologic/lymphatic: DENIES: Bruising Neurologic: COMPLAINS OF: Abnormal gait Psychiatric: DENIES: Confusion Past Family Social History Allergies: Coded Allergies: amoxicillin (Verified Allergy, Intermediate, rash, 01/25/18) Past Medical History Hypertension Hyperlipidemia GERD Past Surgical History Appendectomy Cholecystectomy Cataract Lumbar surgery Reported Medications Reported Meds & Active Scripts Active Hydrocodone-Acetamin 5-325 mg (Hydrocodone/Acetaminophen) 5 Mg-325 Mg Tablet 1 Tab PO Q4HR PRN Reported Slow Fe (Ferrous Sulfate) 142 Mg (45 Mg Iron) Tablet.er 47 Mg PO DAILY Vitamin D-1000 (Cholecalciferol) 1,000 Unit Tab 2,000 Units PO DAILY Tart Awad Extract (Sour Awad Extract) 1,000 Mg Capsule Multi Vitamin Daily (Multiple Vitamin) 1 Tab Tab 1 Tab PO DAILY Magnesium Citrate 100 Mg Tab 250 Mg PO DAILY PRN Flax Seed Oil 1000 mg (Flaxseed (Linseed)) 1,000 Mg Cap 1,000 Mg PO DAILY [place]-3 Fish Oil/Vitamin (Fish Oil-Cholecalciferol) 1,000-1,000 Mg Cap 1 Cap PO DAILY Terazosin (Terazosin HCl) 5 Mg Cap 5 Mg PO BID Family History Does not indicate any significant family history-cancer diabetes neurologic disorder Social History Note tobacco or alcohol use Physical Exam Vital Signs Vital Signs Date Time Temp Pulse Resp B/P (MAP) Pulse Ox O2 Delivery O2 Flow Rate FiO2 01/26/18 20:00 99.0 82 20 130/57 (81) 97 01/26/18 14:48 98.0 80 18 121/52 (75) 93 01/26/18 11:37 97.7 90 19 129/57 (81) 93 01/26/18 07:46 96.6 80 19 131/60 (83) 95 01/26/18 04:58 18 01/26/18 04:00 97.6 90 20 143/63 (89) 95 01/26/18 00:00 96.8 82 18 129/59 (82) 96 01/25/18 23:24 18 Physical Exam GENERAL: This is a well-nourished, well-developed patient, in no apparent distress. SKIN: No rashes, ecchymoses or lesions. Cool and dry. HEAD: Atraumatic. Normocephalic. No temporal or scalp tenderness. EYES: Pupils equal round and reactive. Extraocular motions intact. No scleral icterus. No injection or drainage. ENT: Nose without bleeding, purulent drainage or septal hematoma. Throat without erythema, tonsillar hypertrophy or exudate. Uvula midline. Airway patent. NECK: Trachea midline. No JVD or lymphadenopathy. Supple, nontender, no meningeal signs. CARDIOVASCULAR: Regular rate and rhythm without murmurs, gallops, or rubs. RESPIRATORY: Clear to auscultation. Breath sounds equal bilaterally. No wheezes , rales, or rhonchi. GASTROINTESTINAL: Abdomen soft, non-tender, nondistended. No hepato-splenomegaly , or palpable masses. No guarding. MUSCULOSKELETAL: Extremities without clubbing, cyanosis, or edema. No joint tenderness, effusion, or edema noted. No calf tenderness. Posterior tibial pulse 2+ bilateral NEUROLOGICAL: Sitting up partially in bed Awake and alert Conversant and appropriate Speech is clear Reasonable judgment and insight Extraocular movements and facial motor movements intact Moves all extremities well. Complains of moderate mid to upper lumbar pain without significant radiation with lower extremity motor testing. Laboratory Laboratory Tests Test 01/26/18 11:25 01/26/18 17:30 Blood Urea Nitrogen 13 Creatinine 0.58 Random Glucose 138 Calcium Level 7.9 Sodium Level 140 Potassium Level 3.4 Chloride Level 104 Carbon Dioxide Level 28.1 Anion Gap 8 Estimat Glomerular Filtration Rate 132 Urine Color YELLOW Urine Turbidity CLEAR Urine pH 5.5 Urine Specific [place] 1.028 Urine Protein TRACE Urine Glucose (UA) NEG Urine Ketones 80 Urine Occult Blood NEG Urine Nitrite NEG Urine Bilirubin SMALL Urine Urobilinogen 8.0 Urine Leukocyte Esterase NEG Urine RBC 1 Urine WBC 1 Urine Hyaline Casts 1 Urine Mucus FEW Microscopic Urinalysis Comment CULT NOT INDICATED Result Diagram: 01/25/18 8787 01/26/18 1125 Imaging Abdomen/Pelvis CT 01/25/18 1624 Signed Impressions: Service Date/Time: Thursday, January 25, 2018 17:51 - CONCLUSION: 1. No acute abnormality to explain the patient's pain. 2. Bibasilar atelectasis. 3. Prior cholecystectomy. Kaiser Guevara Jr., MD Lumbar Spine CT 01/25/18 0000 Signed Impressions: Service Date/Time: Thursday, January 25, 2018 17:51 - CONCLUSION: 1. Mild compression fracture of T12 and moderate compression fracture of L5. 2. 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 3. Diffuse osteopenia. Marshall Perry MD Assessment and Plan Assessment and Plan Imp: T12 and L5 compression fractures. L4-5 stenosis Plan: D/W patient and family and medicine service today. PT evaluation in AM Possible kyphoplast 01/28 depending on clinical course Naldo Das MD Jan 26, 2018 23:17
[2018-01-27] VITALS (7 sets, daily range): BP systolic 115–157; BP diastolic 58–87; PULSE 83–98; RESP 15–22; TEMP 98.2–98.7; O2SAT 92–96
[2018-01-27] MEDS: ACETAMINOPHEN/HYDROcodone 325 MG/5 MG TAB PO PRN (08:26)
[2018-01-27] MEDS: TERAZOSIN HCL 5 MG CAP PO SCH ×2 (08:26→20:53)
[2018-01-27] MEDS: MULTIVITAMIN TAB PO SCH (08:26)
[2018-01-27] MEDS: CHOLECALCIFEROL (VIT D3) 1000 UNIT TAB PO SCH (08:26)
[2018-01-27] MEDS: FERROUS SULFATE 325 MG (65 MG ELEMENTAL IRON) TAB PO SCH (08:26)
--- NOTE | 2018-01-27 08:43 | HHI.PR ---
Subjective Remarks no new complaints said his back and radiating pain persisted yesterday Objective Vitals heart reg lung cta abd s/nt ext no edema Vital Signs Date Time Temp Pulse Resp B/P (MAP) Pulse Ox O2 Delivery O2 Flow Rate FiO2 01/27/18 08:00 98.2 98 17 140/65 (90) 94 01/27/18 07:37 Nasal Cannula 2.00 01/27/18 04:00 98.6 91 22 142/59 (86) 95 01/27/18 00:00 98.7 83 20 130/62 (84) 96 01/26/18 20:00 99.0 82 20 130/57 (81) 97 01/26/18 14:48 98.0 80 18 121/52 (75) 93 01/26/18 11:37 97.7 90 19 129/57 (81) 93 Result Diagram: 01/25/18 1645 01/26/18 1125 A/P Problem List: (1) Compression fracture of fifth lumbar vertebra ICD Codes: S32.050A - Wedge compression fracture of fifth lumbar vertebra, initial encounter for closed fracture Status: Acute Plan: 1. mod compression fx L5 with mod/severe central canal stenosis L4/5..Pt has mostly pain symptoms. Mild t12 comp fx. 2. MDS high grade. bone marrow bx on 01/15. follows with dr Santos. Pt transferred from [place] to see NSG and eval for possible intervention on L5 Discussed with Dr Das...Pt today and if fails to progress with plan for kyphoplasty tomorrow. PT eval dvt prophylaxis pain control. (2) MDS (myelodysplastic syndrome) ICD Codes: D46.9 - Myelodysplastic syndrome, unspecified Status: Chronic Plan: above Problem Qualifiers (1) Compression fracture of fifth lumbar vertebra: Qualified Codes: S32.050A - Wedge compression fracture of fifth lumbar vertebra , initial encounter for closed fracture Gregory Robles MD Jan 27, 2018 08:43
--- NOTE | 2018-01-27 18:04 | HHI.NSPN ---
(Pasquale Shepard) History Chief Complaint: Back pain is better with brace on. (Pasquale Shepard) Interval History 01/26: 87 yo male c/o 2 weeks of LBP much worse in the past week. No recent falls 01/27: When seen this evening the patient is sitting up in the chair and just finished supper. He says that his back pain is much better with the TLSO brace on. He denies any pain, numbness, tingling or weakness. He does say he thinks that he may not need the surgery now. Physical Therapy did evaluate the patient today and recommended inpatient rehab for further therapy. He remains neurologically intact. (Pasquale Shepard) Exam Results 01/25/18 01/25/18 01/26/18 01/26/18 01/27/18 01/27/18 06:00 18:00 06:00 18:00 06:00 18:00 Intake Total 587 ml 1600 ml 780 ml Output Total 600 ml 600 ml 400 ml Balance -13 ml 1000 ml 380 ml Intake Oral 240 ml 800 ml 780 ml IV Total 347 ml 800 ml Output Urine Total 600 ml 600 ml 400 ml # Voids 1 # Bowel Movements 0 1 Vital Signs Date Time Temp Pulse Resp B/P (MAP) Pulse Ox O2 Delivery O2 Flow Rate FiO2 01/27/18 16:00 98.5 88 15 120/60 (80) 95 01/27/18 12:00 98.2 90 17 115/58 (77) 92 01/27/18 08:00 98.2 98 17 140/65 (90) 94 01/27/18 07:37 Nasal Cannula 2.00 01/27/18 04:00 98.6 91 22 142/59 (86) 95 01/27/18 00:00 98.7 83 20 130/62 (84) 96 01/26/18 20:00 99.0 82 20 130/57 (81) 97 01/26/18 14:48 98.0 80 18 121/52 (75) 93 01/26/18 11:37 97.7 90 19 129/57 (81) 93 01/26/18 07:46 96.6 80 19 131/60 (83) 95 01/26/18 04:58 18 01/26/18 04:00 97.6 90 20 143/63 (89) 95 01/26/18 00:00 96.8 82 18 129/59 (82) 96 01/25/18 23:24 18 01/25/18 22:14 100 20 146/65 (92) 95 Nasal Cannula 01/25/18 21:17 84 18 134/53 (80) 95 Nasal Cannula 01/25/18 19:16 92 20 139/62 (87) 93 Nasal Cannula 2.00 01/25/18 18:00 20 146/65 (92) 01/25/18 16:07 98.6 102 16 153/65 (94) 93 (Pasquale Shepard) Physical Examination GENERAL: Awake & alert sitting in bed. Affect normal and readily interacts. No apparent distress. HEENT: Normocephalic, atraumatic. MUSCULOSKELETAL: COREA spontaneously & purposefully. TLSO brace in place. Lower extremities NTTP. Mildly TTP to the lumbar spine. NEUROLOGICAL: AAOx3. Speech clear & appropriate. Follows simple commands w/o difficulty. Sensation intact to light touch to the lower extremities. Motor strength is 4+ to 5/5 to all major flexion & extension muscle groups to the lower extremities. (Pasquale Shepard) Lab, Micro, Other Results Recent Impressions Abdomen/Pelvis CT 01/25/18 1624 Signed Impressions: Service Date/Time: Thursday, January 25, 2018 17:51 - CONCLUSION: 1. No acute abnormality to explain the patient's pain. 2. Bibasilar atelectasis. 3. Prior cholecystectomy. Kaiser Guevara Jr., MD Lumbar Spine CT 01/25/18 0000 Signed Impressions: Service Date/Time: Thursday, January 25, 2018 17:51 - CONCLUSION: 1. Mild compression fracture of T12 and moderate compression fracture of L5. 2. 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 3. Diffuse osteopenia. Marshall Perry MD Laboratory Tests Test 01/25/18 16:45 01/26/18 11:25 01/26/18 17:30 White Blood Count 4.3 TH/MM3 Red Blood Count 2.39 MIL/MM3 Hemoglobin 9.6 GM/DL Hematocrit 27.8 % Mean Corpuscular Volume 116.7 FL Mean Corpuscular Hemoglobin 40.2 PG Mean Corpuscular Hemoglobin Concent 34.4 % Red Cell Distribution Width 15.2 % Platelet Count 176 TH/MM3 Mean Platelet Volume 6.8 FL Neutrophils (%) (Auto) 67.3 % Lymphocytes (%) (Auto) 14.4 % Monocytes (%) (Auto) 16.6 % Eosinophils (%) (Auto) 1.1 % Basophils (%) (Auto) 0.6 % Neutrophils # (Auto) 3.0 TH/MM3 Lymphocytes # (Auto) 0.6 TH/MM3 Monocytes # (Auto) 0.7 TH/MM3 Eosinophils # (Auto) 0.0 TH/MM3 Basophils # (Auto) 0.0 TH/MM3 CBC Comment DIFF FINAL Differential Comment Blood Urea Nitrogen 19 MG/DL 13 MG/DL Creatinine 0.78 MG/DL 0.58 MG/DL Random Glucose 118 MG/DL 138 MG/DL Total Protein 8.2 GM/DL Albumin 3.3 GM/DL Calcium Level 9.1 MG/DL 7.9 MG/DL Alkaline Phosphatase 139 U/L Aspartate Amino Transf (AST/SGOT) 18 U/L Alanine Aminotransferase (ALT/SGPT) 16 U/L Total Bilirubin 1.1 MG/DL Sodium Level 138 MEQ/L 140 MEQ/L Potassium Level 3.5 MEQ/L 3.4 MEQ/L Chloride Level 101 MEQ/L 104 MEQ/L Carbon Dioxide Level 27.2 MEQ/L 28.1 MEQ/L Anion Gap 10 MEQ/L 8 MEQ/L Estimat Glomerular Filtration Rate 94 ML/MIN 132 ML/MIN Lipase 71 U/L Urine Color YELLOW Urine Turbidity CLEAR Urine pH 5.5 Urine Specific [place] 1.028 Urine Protein TRACE mg/dL Urine Glucose (UA) NEG mg/dL Urine Ketones 80 mg/dL Urine Occult Blood NEG Urine Nitrite NEG Urine Bilirubin SMALL Urine Urobilinogen 8.0 MG/DL Urine Leukocyte Esterase NEG Urine RBC 1 /hpf Urine WBC 1 /hpf Urine Hyaline Casts 1 /lpf Urine Mucus FEW /lpf Microscopic Urinalysis Comment CULT NOT INDICATED (Pasquale Shepard) Medical Decision Making Impression and Plan Impression: T12 and L5 compression fractures. L4-5 stenosis Patient is doing well w/improved pain control w/brace on. Feels he may not need surgery. Neurologically intact to lower extremities. Physical Therapy recommends further inpatient therapy at rehab. Plan: Primary management per Hospitalist. TLSO brace when OOB. Mobilise patient w/assistance. Physical Therapy eval & tx. (Pasquale Shepard) Attending Statement The exam, history, and the medical decision-making described in the above note were completed with the assistance of the mid-level provider. I reviewed and agree with the findings presented. I attest that I had a [id number] encounter with the patient on the same day, and personally performed and documented my assessment and findings in the medical record. On my examination of 01/27/2018, the patient is in his room sitting up in a chair. He has C TLSO brace in place He appears quite comfortable. He states that he ambulated several times in his room today without significant pain. Sensation is intact to light touch lower extremities Strength is within normal limits lower extremity major flexion and extension groups Minimal tenderness over the upper lumbar region in the midline. He is doing much better today with conservative treatment. I discussed treatment options again with him. He would like to continue conservative treatment and defer kyphoplasty at this point, which appears reasonable. He will need a follow-up lumbar spine x-ray in approximately 2 weeks with outpatient neurosurgery follow-up. (Naldo Das MD) Pasquale Shepard Jan 27, 2018 18:04 Naldo Das MD Jan 27, 2018 21:43
[2018-01-28] VITALS: BP 126/61; PULSE 91; RESP 17; TEMP 98.1; O2SAT 95
[2018-01-28] MEDS: ACETAMINOPHEN/HYDROcodone 325 MG/5 MG TAB PO PRN ×3 (01:32→15:02)
[2018-01-28 05:04] LABS: BICARBONATE 30.1 MEQ/L (21.0-32.0); CALCIUM 8.7 MG/DL (8.5-10.1); CREATININE 0.71 MG/DL (0.60-1.30)
[2018-01-28 08:06] VITALS: BP 125/67; PULSE 80; RESP 18; TEMP 96.7; O2SAT 93
[2018-01-28] MEDS: TERAZOSIN HCL 5 MG CAP PO SCH (08:09)
[2018-01-28] MEDS: CHOLECALCIFEROL (VIT D3) 1000 UNIT TAB PO SCH (08:09)
[2018-01-28] MEDS: FERROUS SULFATE 325 MG (65 MG ELEMENTAL IRON) TAB PO SCH (08:09)
[2018-01-28] MEDS: MULTIVITAMIN TAB PO SCH (08:09)
[2018-01-28] MEDS ORDERED: POTASSIUM CHLORIDE 20 MEQ CONTROLLED RELEASE TAB PO ONE (08:30)
[2018-01-28] MEDS ORDERED: HYDR-3516 PO (08:31)
--- NOTE | 2018-01-28 08:32 | HHI.DCPOC ---
Discharge Care Plan Diagnosis: (1) Compression fracture of fifth lumbar vertebra (2) T12 compression fracture (3) MDS (myelodysplastic syndrome) Goals to Promote Your Health * To prevent worsening of your condition and complications * To maintain your health at the optimal level Directions to Meet Your Goals Take your medications as prescribed Follow your dietary instruction Follow activity as directed Keep your appointments as scheduled Take your immunizations and boosters as scheduled If your symptoms worsen call your PCP, if no PCP go to Urgent Care Center or Emergency Room Smoking is Dangerous to Your Health. Avoid second hand smoke Call the 24-hour hour crisis hotline for domestic abuse at Gregory Robles MD Jan 28, 2018 08:32
--- NOTE | 2018-01-28 10:02 | HHI.DS ---
Discharge Summary Admission Date Jan 25, 2018 at 19:35 Discharge Date: Jan 28, 2018 Admitting Diagnosis T12 and L5 compression fractures, back pain (1) Compression fracture of fifth lumbar vertebra Diagnosis: Principal ICD Codes: S32.050A - Wedge compression fracture of fifth lumbar vertebra, initial encounter for closed fracture Status: Acute (2) MDS (myelodysplastic syndrome) Diagnosis: Secondary ICD Codes: D46.9 - Myelodysplastic syndrome, unspecified Status: Chronic CBC/BMP: 01/25/18 1645 01/28/18 0400 Significant Findings Laboratory Tests Test 01/25/18 16:45 01/26/18 11:25 01/26/18 17:30 01/28/18 04:00 Red Blood Count 2.39 MIL/MM3 (4.50-5.90) Hemoglobin 9.6 GM/DL (13.0-17.0) Hematocrit 27.8 % (39.0-51.0) Mean Corpuscular Volume 116.7 FL (80.0-100.0) Mean Corpuscular Hemoglobin 40.2 PG (27.0-34.0) Mean Platelet Volume 6.8 FL (7.0-11.0) Monocytes (%) (Auto) 16.6 % (0.0-8.0) Lymphocytes # (Auto) 0.6 TH/MM3 (1.0-4.8) Blood Urea Nitrogen 19 MG/DL (7-18) Random Glucose 118 MG/DL (74-106) 138 MG/DL (74-106) 145 MG/DL (74-106) Albumin 3.3 GM/DL (3.4-5.0) Alkaline Phosphatase 139 U/L (45-117) Total Bilirubin 1.1 MG/DL (0.2-1.0) Lipase 71 U/L (73-393) Creatinine 0.58 MG/DL (0.60-1.30) Calcium Level 7.9 MG/DL (8.5-10.1) Potassium Level 3.4 MEQ/L (3.5-5.1) 3.1 MEQ/L (3.5-5.1) Urine Ketones 80 mg/dL (NEG) Urine Bilirubin SMALL (NEG) Urine Urobilinogen 8.0 MG/DL (LESS THAN Urine Mucus FEW /lpf (OCC) Hospital Course (1) Compression fracture of fifth lumbar vertebra 1. mod compression fx L5 with mod/severe central canal stenosis L4/5..Pt has mostly pain symptoms. Mild t12 comp fx. 2. MDS high grade. bone marrow bx on 01/15. follows with dr Santos. Pt transferred from [place] to see NSG and eval for possible intervention on L5 Discussed with Dr Das..Pt did well with PT yesterday so he will go for rehab and avoid kyphoplasty. continue pain control. (2) MDS (myelodysplastic syndrome) ICD Codes: D46.9 - Myelodysplastic syndrome, unspecified Status: Chronic Pt Condition on Discharge: Stable Discharge Disposition: Discharge to SNF Discharge Instructions DIET: Follow Instructions for: As Tolerated, No Restrictions Activities you can perform: See Additionl Instruction Other Activity Instructions: out of bed with tlso brace Follow up Referrals: Appointment for Follow Up @ Changed Medications: Hydrocodone/Acetaminophen (Hydrocodone-Acetamin 5-325 mg) 5 Mg-325 Mg Tablet 1 TAB PO Q4HR PRN for pain, #30 TAB (Changed from: Q6HR; 12) Continued Medications: Cholecalciferol (Vitamin D-1000) 1,000 Unit Tab 2000 UNITS PO DAILY for Nutritional Supplement, #1 BOTTLE 0 Refills Ferrous Sulfate (Slow Fe) 142 Mg (45 Mg Iron) Tablet.er 47 MG PO DAILY Fish Oil-Cholecalciferol ([place]-3 Fish Oil/Vitamin) 1,000-1,000 Mg Cap 1 CAP PO DAILY for Nutritional Supplement, CAP 0 Refills Flaxseed (Linseed) (Flax Seed Oil 1000 mg) 1,000 Mg Cap 1000 MG PO DAILY Magnesium Citrate (Magnesium Citrate) 100 Mg Tab 250 MG PO DAILY PRN for CONSTIPATION, TAB 0 Refills Multiple Vitamin (Multi Vitamin Daily) 1 Tab Tab 1 TAB PO DAILY Sour Awad Extract (Tart Awad Extract) 1,000 Mg Capsule Terazosin (Terazosin) 5 Mg Cap 5 MG PO BID, #30 CAP 0 Refills Gregory Robles MD Jan 28, 2018 10:02
[2018-01-28 12:00] VITALS: BP 117/64; PULSE 87; RESP 18; TEMP 97.9; O2SAT 94
[2018-01-28 16:55] VITALS: BP 124/62; PULSE 85; RESP 17; TEMP 100.2; O2SAT 92
== END 2018-01-28 18:49 ==
LOC: PHEFT 16:02 → PHEDA 19:35 → N06A 22:52
PROVIDERS: ADMIT Hospitalist; ATTEND Hospitalist
DX: M48.54XA Collapsed vertebra, not elsewhere classified, thoracic region, initial encounter for fracture (principal); S32.050A Wedge compression fracture of fifth lumbar vertebra, initial encounter for closed fracture; M48.061 Spinal stenosis, lumbar region without neurogenic claudication; I10 Essential (primary) hypertension; E11.9 Type 2 diabetes mellitus without complications; D46.9 Myelodysplastic syndrome, unspecified; E78.00 Pure hypercholesterolemia, unspecified; R10.11 Right upper quadrant pain; R10.31 Right lower quadrant pain; J98.11 Atelectasis; K21.9 Gastro-esophageal reflux disease without esophagitis; N40.0 Benign prostatic hyperplasia without lower urinary tract symptoms; M85.80 Other specified disorders of bone density and structure, unspecified site; M19.90 Unspecified osteoarthritis, unspecified site
CPT/HCPCS: 72132; 74177; 80048; 80053; 81001; 83690; 85025; 96361; 96374; 96375; 97162; 97530; 99285; G0378; J2270; J2405; J7030; L0200; L0484; Q9967

== ENCOUNTER 2018-02-05 16:45 | Observation (INO) | payer MEDICARE ==
[2018-02-05] VITALS (10 sets, daily range): BP systolic 127–148; BP diastolic 60–67; PULSE 93–105; RESP 20–24; TEMP 98.5–99.7; O2SAT 91–97
[~2018-02-05] VITALS: Ht 175.3 cm; Wt 78.3 kg
[~2018-02-05 16:45] MED LIST changes: +HYDR-3516 PO
--- NOTE | 2018-02-05 17:19 | PD ---
HPI Chief Complaint: Respiratory Distress Time Seen by Provider: 16:52 Travel History International Travel<30 days: No Contact w/Intl Traveler<30days: No Traveled to known affect area: No History of Present Illness HPI 87-year-old male that presents to the ED for evaluation of shortness of breath, fever, right arm pain. Patient has had this for about some days. Patient was recently admitted to an SNF secondary to a thoracic spine fracture. Patient was admitted to the hospital at the time and was deemed to qualify for conservative management. Patient agree at the time I was able to be discharged to an SNF. Per patient for the past 2 days he having shortness of breath and some confusion. Most of the history is obtained from ED nurse of the the patient is able to provide some information about that he is not always able to provide all information and he does appear to be slightly confused. He does complain of pain to the right arm and he has swelling and erythema on the dorsal aspect of the arm. Per report he be having shortness of breath as well as acutely. Apparently also fever. Some cough. Patient was brought here for further eval. Patient does not take any blood thinners as far as he knows. He has an allergy to amoxicillin. Again history is somewhat limited. He states that his pain is mainly 9 out of 10 on the right arm. PFSH Past Medical History Arthritis: Yes Autoimmune Disease: No Blood Disorders: No Anxiety: No Depression: No Heart Rhythm Problems: No Cancer: No Cardiovascular Problems: No High Cholesterol: Yes Chemotherapy: No Chest Pain: No Congestive Heart Failure: No Diabetes: No Diminished Hearing: No Endocrine: No Gastrointestinal Disorders: Yes GERD: Yes Glaucoma: No Genitourinary: Yes Hepatitis: No Hiatal Hernia: No Hypertension: Yes Immune Disorder: No Kidney Stones: No Musculoskeletal: Yes (sciatia) Neurologic: No Psychiatric: No Reproductive: No Respiratory: No Myocardial Infarction: No Radiation Therapy: No Renal Failure: No Sickle Cell Disease: No Thyroid Disease: No Ulcer: Yes Tetanus Vaccination: > 5 Years Influenza Vaccination: Yes Past Surgical History Abdominal Surgery: Yes AICD: No Appendectomy: Yes Arteriovenous Shunt: No Cardiac Surgery: No Cholecystectomy: Yes Ear Surgery: No Endocrine Surgery: No Eye Surgery: Yes (BILAT CATARACT REMOVAL 2016) Genitourinary Surgery: No Gynecologic Surgery: No Insulin Pump: No Joint Replacement: No Oral Surgery: No Pacemaker: No Thoracic Surgery: No Other Surgery: Yes (x 30 yrs ago appendectomy, cholecystectomy, lumbar surgery x 47yrs ago) Social History Alcohol Use: No Tobacco Use: No Substance Use: No Allergies-Medications (Allergen,Severity, Reaction): Coded Allergies: amoxicillin (Verified Allergy, Intermediate, rash, 01/25/18) Reported Meds & Prescriptions Reported Meds & Active Scripts Active Hydrocodone-Acetamin 5-325 mg (Hydrocodone/Acetaminophen) 5 Mg-325 Mg Tablet 1 Tab PO Q4HR PRN Reported Slow Fe (Ferrous Sulfate) 142 Mg (45 Mg Iron) Tablet.er 47 Mg PO DAILY Vitamin D-1000 (Cholecalciferol) 1,000 Unit Tab 2,000 Units PO DAILY Tart Awad Extract (Sour Awad Extract) 1,000 Mg Capsule Multi Vitamin Daily (Multiple Vitamin) 1 Tab Tab 1 Tab PO DAILY Magnesium Citrate 100 Mg Tab 250 Mg PO DAILY PRN Flax Seed Oil 1000 mg (Flaxseed (Linseed)) 1,000 Mg Cap 1,000 Mg PO DAILY [place]-3 Fish Oil/Vitamin (Fish Oil-Cholecalciferol) 1,000-1,000 Mg Cap 1 Cap PO DAILY Terazosin (Terazosin HCl) 5 Mg Cap 5 Mg PO BID Review of Systems Except as stated in HPI: all other systems reviewed are Neg Physical Exam Narrative GENERAL: SKIN: Warm and dry. HEAD: Atraumatic. Normocephalic. EYES: Pupils equal and round. No scleral icterus. No injection or drainage. ENT: No nasal bleeding or discharge. Mucous membranes pink and moist. Tongue is midline. No uvula deviation. NECK: Trachea midline. No JVD. CARDIOVASCULAR: Regular rate and rhythm. No murmurs, S3, S4. RESPIRATORY: No accessory muscle use. Clear to auscultation. Breath sounds equal bilaterally. GASTROINTESTINAL: Abdomen soft, non-tender, nondistended. Hepatic and splenic margins not palpable. MUSCULOSKELETAL: Extremities without clubbing, cyanosis, or edema. No obvious deformities. Full range of motion of the upper and lower extremity is bilaterally with exception of the right arm. Patient does have soft tissue swelling and pain noted on the radial aspect of the right arm. Full range of motion the digits. Full range of motion of the wrist. 2+ pulses bilaterally. Very tender to touch. Slightly warm to touch. NEUROLOGICAL: Awake and alert. No obvious cranial nerve deficits. Motor grossly within normal limits. Five out of 5 muscle strength in the arms and legs. Normal speech. PSYCHIATRIC: Appropriate mood and affect; insight and judgment normal. Data Data Last Documented VS Vital Signs Date Time Temp Pulse Resp B/P (MAP) Pulse Ox O2 Delivery O2 Flow Rate FiO2 02/05/18 16:57 24 91 Nasal Cannula 02/05/18 16:57 2.00 02/05/18 16:54 98.5 101 127/60 (82) Orders Orders Sepsis Workup Initiated (02/05/18 ) Complete Blood Count With Diff (02/05/18 16:50) Comprehensive Metabolic Panel (02/05/18 16:50) Lactic Acid Sepsis Protocol (02/05/18 16:50) Chest, Single Ap (02/05/18 16:50) Blood Culture (02/05/18 16:50) Iv Access Insert/Monitor (02/05/18 16:50) Oxygen Administration (02/05/18 16:50) Oximetry (02/05/18 16:50) Blood Glucose (02/05/18 16:50) Ct Brain W/O Iv Contrast(Rout) (02/05/18 ) Us Arm Venous Doppler (02/05/18 ) Ct Pulmonary Angiogram (02/05/18 ) Troponin I (02/05/18 17:01) B-Type Natriuretic Peptide (02/05/18 17:01) Electrocardiogram (02/05/18 ) Forearm (2vws) (02/05/18 ) Labs Laboratory Tests Test 02/05/18 16:05 [facility] Medical Decision Making Medical Screen Exam Complete: Yes Emergency Medical Condition: Yes Medical Record Reviewed: Yes Differential Diagnosis PE versus fracture versus cellulitis versus pneumonia versus shortness of breath versus altered mental status Narrative Course 87-year-old male that presents to the ED for evaluation of shortness of breath and right arm pain. Patient was properly examined and was found to have signs and symptoms somewhat concerning for PE. Also sepsis. Labs and imaging were ordered. Case was discussed in my attending Dr. Espitia and plan of care was transferred to him. Vikash Alvarado Feb 05, 2018 17:19
[2018-02-05 17:49] LABS: ALKALINE PHOSPHATASE 97 U/L (45-117); TOTAL BILIRUBIN ADULT 1.7 MG/DL (0.2-1.0); TOTAL PROTEIN 7.6 GM/DL (6.4-8.2)
[2018-02-05 18:33] LABS: MEAN CELL VOLUME 114.9 FL (80.0-100.0); MEAN CORPUSCULAR HEMOGLOBIN 40.9 PG (27.0-34.0); MEAN CORPUSCULAR HGB CONC 35.6 % (32.0-36.0); MEAN PLATELET VOLUME 7.4 FL (7.0-11.0); PLATELET COUNT 174 TH/MM3 (150-450); RED CELL DISTRIBUTION WIDTH 14.8 % (11.6-17.2); WHITE BLOOD COUNT 8.9 TH/MM3 (4.0-11.0)
--- NOTE | 2018-02-05 18:39 | RADRPT ---
EXAM DATE/TIME: 02/05/2018 18:05 [facility] COMPARISON: No previous studies available for comparison. INDICATIONS : Weakness. MEDICAL HISTORY : Hypertension. SURGICAL HISTORY : Cholecystectomy. Appendectomy. Discectomy. ENCOUNTER: Initial ACUITY: 1 day PAIN SCORE: 0/10 LOCATION: Bilateral chest FINDINGS: A single view of the chest demonstrates the lungs to be symmetrically aerated without evidence of mas s, infiltrate or effusion. Linear atelectasis or scarring at the bases. The cardiomediastinal contour s are unremarkable. Osseous structures are intact. CONCLUSION: 1. Linear atelectasis or scarring at the bases. No effusion or pneumothorax. Marshall Perry MD on February 05, 2018 at 18:36 Board Certified Radiologist. This report was verified electronically.
[2018-02-05 18:40] LABS: HEMATOCRIT 19.5 % (39.0-51.0)
--- NOTE | 2018-02-05 18:43 | RADRPT ---
EXAM DATE/TIME: 02/05/2018 18:01 [facility] COMPARISON: No previous studies available for comparison. INDICATIONS : Right arm swelling. MEDICAL HISTORY : Hypertension. SURGICAL HISTORY : Cholecystectomy. Appendectomy. Discectomy. ENCOUNTER: Initial ACUITY: 1 day PAIN SCORE: 8/10 LOCATION: Right forearm. FINDINGS: Two view examination of the right forearm demonstrates no evidence of fracture or dislocation. Bony mineralization is normal. The soft tissue structures are intact. CONCLUSION: 1. No acute bony abnormality. Advanced arthropathy of the wrist joint. Marshall Perry MD on February 05, 2018 at 18:39 Board Certified Radiologist. This report was verified electronically.
[2018-02-05] MEDS ORDERED: SODIUM CHLOR 0.9% 250 ML INJ 250 ML IV ONE (18:45)
--- NOTE | 2018-02-05 18:49 | PD ---
Data Data Last Documented VS Vital Signs Date Time Temp Pulse Resp B/P (MAP) Pulse Ox O2 Delivery O2 Flow Rate FiO2 02/05/18 20:05 102 20 148/63 (91) 95 Nasal Cannula 3.00 02/05/18 16:54 98.5 Orders Orders Sepsis Workup Initiated (02/05/18 ) Complete Blood Count With Diff (02/05/18 16:50) Comprehensive Metabolic Panel (02/05/18 16:50) Lactic Acid Sepsis Protocol (02/05/18 16:50) Chest, Single Ap (02/05/18 16:50) Blood Culture (02/05/18 16:50) Iv Access Insert/Monitor (02/05/18 16:50) Oxygen Administration (02/05/18 16:50) Oximetry (02/05/18 16:50) Blood Glucose (02/05/18 16:50) Ct Brain W/O Iv Contrast(Rout) (02/05/18 ) Us Arm Venous Doppler (02/05/18 ) Ct Pulmonary Angiogram (02/05/18 ) Troponin I (02/05/18 17:01) B-Type Natriuretic Peptide (02/05/18 17:01) Electrocardiogram (02/05/18 ) Forearm (2vws) (02/05/18 ) Type And Screen (02/05/18 18:43) Red Blood Cells (Rbc) (02/05/18 18:43) Blood Product Administration (02/05/18 18:43) Sodium Chlor 0.9% 250 Ml Inj (Ns 250 Ml (02/05/18 18:45) Labs Laboratory Tests Test 02/05/18 16:05 02/05/18 17:20 02/05/18 18:19 Total Protein 7.6 GM/DL Alkaline Phosphatase 97 U/L Total Bilirubin 1.7 MG/DL Lactic Acid Level 1.1 mmol/L Troponin I 0.04 NG/ML B-Type Natriuretic Peptide 92 PG/ML White Blood Count 8.9 TH/MM3 Red Blood Count 1.70 MIL/MM3 Hemoglobin 7.0 GM/DL Hematocrit 19.5 % Mean Corpuscular Volume 114.9 FL Mean Corpuscular Hemoglobin 40.9 PG Mean Corpuscular Hemoglobin Concent 35.6 % Red Cell Distribution Width 14.8 % Platelet Count 174 TH/MM3 Mean Platelet Volume 7.4 FL CBC Comment AUTO DIFF Differential Total Cells Counted 100 Neutrophils % (Manual) 69 % Band Neutrophils % 2 % Lymphocytes % 12 % Monocytes % 17 % Neutrophils # (Manual) 6.3 TH/MM3 Differential Comment FINAL DIFF MANUAL Dohle Bodies PRESENT Platelet Estimate NORMAL Platelet Morphology Comment NORMAL MDM Supervised Visit with KIM: Yes Narrative Course I, Dr. Espitia, have reviewed the advance practice practitioner's documentation and am in agreement, met with the patient face to face, made the diagnosis, and the medical decision making was done by me. *My assessment and Findings: Patient seen and examined by me in addition to Vikash Alvarado PA-C, patient presented emergency department for apparently fever and shortness of breath, patient only complaint of us is that he has right upper extremity pain. Recently patient was seen here for lumbar compression fractures and opted to be nonoperative and went to longterm facility. Patient also has some right upper extremity swelling particularly at the distal radius. Denies any injury. X-rays were negative, I have asked the color technician to look at the distal radius for possible pseudoaneurysm is possibly the patient had some radial puncture for blood collect but there is no pseudoaneurysm. Awaiting for CAT scan results the patient was found to have a hemoglobin of 7 and this certainly could explain his shortness of breath. He is afebrile here. The patient will be discussed with Dr. Willis at change of shift to follow-up CAT scan reports and disposition the patient appropriately. Vance Espitia MD Feb 05, 2018 18:49
[2018-02-05 19:04] LABS: BANDS 2 % (0-6); LYMPHOCYTES 12 % (9-44); MONOCYTES 17 % (0-8); NEUTROPHIL # MANUAL DIFF 6.3 TH/MM3 (1.8-7.7); POLYS (SEG NEUTROPHILS) 69 % (16-70)
[2018-02-05 19:06] LABS: DOHLE BODIES PRESENT (NONE SEEN)
--- NOTE | 2018-02-05 19:19 | RADRPT ---
EXAM DATE/TIME: 02/05/2018 18:31 [facility] COMPARISON: No previous studies available for comparison. INDICATIONS : Right arm swelling. MEDICAL HISTORY : Hypercholesterolemia. Hypertension. Gastroesophageal reflux disease. Blindness. Dizziness. Ulcer. Art hritis. Measles. Anemia. Blood transfusion. SURGICAL HISTORY : Cholecystectomy. Discectomy, lumbar. Appendectomy. Bilateral cataract removal. ENCOUNTER: Initial ACUITY: 1 day PAIN SCORE: 4/10 LOCATION: Right arm. FINDINGS: There is spontaneous flow documented in the brachial, basilic, cephalic, axillary, and subclavian vei ns. The vessels are compressible and augmentation response is documented. No filling defects are se en. The flow is phasic with respiration. Direction of flow in the jugular vein is caudal. CONCLUSION: Normal examination. Marshall Perry MD on February 05, 2018 at 19:16 Board Certified Radiologist. This report was verified electronically.
--- NOTE | 2018-02-05 21:22 | PD ---
Physical Exam Date Seen by Provider: Feb 05, 2018 Narrative This patient was checked out to me at 7 PM and ending completion of his studies so that he could be admitted. He needs to be admitted because of anemia. His hemoglobin on 01/25 was not 0.6 and his hemoglobin today is 7.0. The patient presented with shortness of breath. He was also complaining with right upper extremity pain. He has had plain films of the arm done which are negative for fracture and has had an ultrasound of the arm which is negative for DVT. The patient was recently seen here for lumbar compression fractures and was discharged to a snf facility. The patient was sound asleep when I went in to see him and was not able to give me any meaningful history. I reviewed his record from the previous physician. Data Data Last Documented VS Vital Signs Date Time Temp Pulse Resp B/P (MAP) Pulse Ox O2 Delivery O2 Flow Rate FiO2 02/05/18 23:01 98.5 98 20 145/64 97 02/05/18 20:05 Nasal Cannula 3.00 Orders Orders Sepsis Workup Initiated (02/05/18 ) Complete Blood Count With Diff (02/05/18 16:50) Comprehensive Metabolic Panel (02/05/18 16:50) Lactic Acid Sepsis Protocol (02/05/18 16:50) Chest, Single Ap (02/05/18 16:50) Blood Culture (02/05/18 16:50) Iv Access Insert/Monitor (02/05/18 16:50) Oxygen Administration (02/05/18 16:50) Oximetry (02/05/18 16:50) Blood Glucose (02/05/18 16:50) Ct Brain W/O Iv Contrast(Rout) (02/05/18 ) Us Arm Venous Doppler (02/05/18 ) Ct Pulmonary Angiogram (02/05/18 ) Troponin I (02/05/18 17:01) B-Type Natriuretic Peptide (02/05/18 17:01) Electrocardiogram (02/05/18 ) Forearm (2vws) (02/05/18 ) Type And Screen (02/05/18 18:43) Red Blood Cells (Rbc) (02/05/18 18:43) Blood Product Administration (02/05/18 18:43) Sodium Chlor 0.9% 250 Ml Inj (Ns 250 Ml (3/21/18 18:45) Iohexol 350 Inj (Omnipaque 350 Inj) (02/05/18 22:43) Admit Order (Ed Use Only) (02/05/18 23:09) Labs Laboratory Tests Test 02/05/18 16:05 02/05/18 17:20 02/05/18 18:19 02/05/18 21:45 Lactic Acid Level 1.1 mmol/L Troponin I 0.04 NG/ML B-Type Natriuretic Peptide 92 PG/ML White Blood Count 8.9 TH/MM3 Red Blood Count 1.70 MIL/MM3 Hemoglobin 7.0 GM/DL Hematocrit 19.5 % Mean Corpuscular Volume 114.9 FL Mean Corpuscular Hemoglobin 40.9 PG Mean Corpuscular Hemoglobin Concent 35.6 % Red Cell Distribution Width 14.8 % Platelet Count 174 TH/MM3 Mean Platelet Volume 7.4 FL CBC Comment AUTO DIFF Differential Total Cells Counted 100 Neutrophils % (Manual) 69 % Band Neutrophils % 2 % Lymphocytes % 12 % Monocytes % 17 % Neutrophils # (Manual) 6.3 TH/MM3 Differential Comment FINAL DIFF MANUAL Dohle Bodies PRESENT Platelet Estimate NORMAL Platelet Morphology Comment NORMAL Blood Urea Nitrogen 17 MG/DL Creatinine 0.63 MG/DL Random Glucose 142 MG/DL Total Protein 7.6 GM/DL Albumin 2.4 GM/DL Calcium Level 8.2 MG/DL Alkaline Phosphatase 97 U/L Aspartate Amino Transf (AST/SGOT) 31 U/L Alanine Aminotransferase (ALT/SGPT) 42 U/L Total Bilirubin 1.7 MG/DL Sodium Level 136 MEQ/L Potassium Level 3.3 MEQ/L Chloride Level 99 MEQ/L Carbon Dioxide Level 28.0 MEQ/L Anion Gap 9 MEQ/L Estimat Glomerular Filtration Rate 120 ML/MIN MDM Supervised Visit with KIM: No Interpretation(s) EKG shows a sinus rhythm with a ventricular rate of 100. Artifact. No acute ischemic changes. Narrative Course CBC Diagram 02/05/18 18:19 2 units of blood ordered and are currently being given. BMP Diagram 02/05/18 21:45 Total Protein 7.6, Albumin 2.4 L, Calcium Level 8.2 L, Alkaline Phosphatase 97, Aspartate Amino Transf (AST/SGOT) 31, Alanine Aminotransferase (ALT/SGPT) 42, Total Bilirubin 1.[address] for PE was markedly delayed because his labs were markedly delayed. Last Impressions Chest X-Ray 02/05/18 1650 Signed Impressions: Service Date/Time: Monday, February 05, 2018 18:05 - CONCLUSION: 1. Linear atelectasis or scarring at the bases. No effusion or pneumothorax. Marshall Perry MD Upper Extremity Ultrasound 02/05/18 0000 Signed Impressions: Service Date/Time: Monday, February 05, 2018 18:31 - CONCLUSION: Normal examination. Marshall Perry MD Radius/Ulna X-Ray 02/05/18 0000 Signed Impressions: Service Date/Time: Monday, February 05, 2018 18:01 - CONCLUSION: 1. No acute bony abnormality. Advanced arthropathy of the wrist joint. Marshall Perry MD Head CT 02/05/18 0000 Signed Impressions: Service Date/Time: Monday, February 05, 2018 22:36 - CONCLUSION: 1. No acute findings. Marshall Perry MD CT Angiography 02/05/18 0000 Signed Impressions: Service Date/Time: Monday, February 05, 2018 22:38 - CONCLUSION: 1. Negative for pulmonary embolus. Subsegmental airspace disease in the lungs. No effusions. No adenopathy. Marshall Perry MD Physician Communication Physician Communication Dr. Nolasco Diagnosis Primary Impression: Anemia Qualified Codes: D64.9 - Anemia, unspecified Admitting Information Admitting Physician Requests: Admit Condition: Stable Cecilia Willis MD Feb 05, 2018 21:21
--- NOTE | 2018-02-05 21:46 | EKG ---
Date Performed: 02/05/2018 Time Performed: 17:30:39 PTAGE: 87 years EKG: SINUS TACHYCARDIA POSSIBLE RIGHT VENTRICULAR CONDUCTION DELAY MINIMAL VOLTAGE CRITERIA FOR LVH, CONSIDER NORMAL VARIANT ABNORMAL RHYTHM ECG Compared to prior electrocardiogram, rate has increa sed NO PREVIOUS TRACING DOCTOR: Jose D Terry Interpretating Date/Time 02/05/2018 21:44:47
[2018-02-05 22:18] LABS: ALBUMIN 2.4 GM/DL (3.4-5.0); AST (GOT) 31 U/L (15-37); BLOOD UREA NITROGEN 17 MG/DL (7-18); CALCIUM 8.2 MG/DL (8.5-10.1); CHLORIDE 99 MEQ/L (98-107); CREATININE 0.63 MG/DL (0.60-1.30); GLOMERULAR FILTRATION RATE 120 ML/MIN (>89); GLUCOSE,RANDOM 142 MG/DL (74-106); SODIUM (NA) 136 MEQ/L (136-145)
[2018-02-05 22:22] LABS: ALT (GPT) 42 U/L (12-78)
[2018-02-05] MEDS ORDERED: IOHEXOL 350 MG/ML 10 ML VIAL (for RAD DIAG) IVCONTRAST ONE (22:43)
--- NOTE | 2018-02-05 22:59 | RADRPT ---
EXAM DATE/TIME: 02/05/2018 22:38 [facility] COMPARISON: No previous studies available for comparison. INDICATIONS : Shortness of breath and fever. IV CONTRAST: 75 cc Omnipaque 350 (iohexol) IV RADIATION DOSE: 10.59 CTDIvol (mGy) MEDICAL HISTORY : Hypertension. SURGICAL HISTORY : None. ENCOUNTER: Initial ACUITY: 3 days PAIN SCALE: 0/10 LOCATION: chest TECHNIQUE: Volumetric scanning of the chest was performed using a pulmonary embolism protocol MIP images were re constructed. Using automated exposure control and adjustment of the mA and/or kV according to patien t size, radiation dose was kept as low as reasonably achievable to obtain optimal diagnostic quality images. DICOM format image data is available electronically for review and comparison. Follow-up recommendations for detected pulmonary nodules are based at a minimum on nodule size and pa tient risk factors according to Fleischner Society Guidelines. FINDINGS: No filling defects identified to suggest pulmonary embolic disease. There is dependent atelectasis in both lungs and scattered linear scarring. No significant pleural or pericardial effusion. Moderate coronary calcifications. No acute findings in the upper abdomen. CONCLUSION: 1. Negative for pulmonary embolus. Subsegmental airspace disease in the lungs. No effusions. No adeno esther. Marshall Perry MD on February 05, 2018 at 22:53 Board Certified Radiologist. This report was verified electronically.
--- NOTE | 2018-02-05 23:02 | RADRPT ---
EXAM DATE/TIME: 02/05/2018 22:36 [facility] COMPARISON: No previous studies available for comparison. INDICATIONS : Altered mental status. RADIATION DOSE: 64.63 CTDIvol (mGy) ; Tabletop CT Head MEDICAL HISTORY : Hypertension. SURGICAL HISTORY : None. ENCOUNTER: Initial ACUITY: 1 day PAIN SCALE: 0/10 LOCATION: cranial TECHNIQUE: Multiple contiguous axial images were obtained of the head. Using automated exposure control and adj ustment of the mA and/or kV according to patient size, radiation dose was kept as low as reasonably a chievable to obtain optimal diagnostic quality images. DICOM format image data is available electro nically for review and comparison. FINDINGS: There is marked central and cortical atrophy with dilatation of ventricular and sulcal spaces. There is no parenchymal hemorrhage, acute infarction or mass lesion identified. There are no extra-axial fluid collections appreciated. The posterior fossa is unremarkable with midline fourth ventricle. T he portion of the orbits and paranasal sinuses visualized are unremarkable. CONCLUSION: 1. No acute findings. Marshall Perry MD on February 05, 2018 at 22:58 Board Certified Radiologist. This report was verified electronically.
--- NOTE | 2018-02-05 23:47 | HHI.HP ---
HPI Service [facility] Hospitalists Primary Care Physician Odin Nunez MD Admission Diagnosis anemia Chief Complaint: sob, weakness, RUE pain Travel History International Travel<30 Days: No Contact w/Intl Traveler <30 Da: No Traveled to Known Affected Are: No History of Present Illness 87-year-old male with apparent myelodysplastic d/o and macrocytic anemia with recent admit for vertebral compression frxs presents to the ED from SNF for evaluation of shortness of breath, fever, right arm pain. Patient has had this for about 3 days. Patient was recently admitted to an SNF secondary to a thoracic spine fracture. Patient was admitted to the hospital at that time and was deemed to qualify for conservative management. Per patient for the past 2 days he has been having shortness of breath and some confusion. He does complain of pain to the right arm and he has some slight swelling and erythema on the dorsal aspect of the arm. Per report he has been having shortness of breath chronically as well as acutely. Also has noted some cough and reported fever. Patient was brought here for further eval. Patient does not take any blood thinners as far as he knows. He has an allergy to amoxicillin. He states that his pain is mainly 9 out of 10 on the right arm. Denies CP. Denies hemoptysis. His Hb typically runs around 9.5 to 10, but on arrival was noted to be at 7. CTA chest negative for PE. Review of Systems Constitutional: COMPLAINS OF: Fatigue, Weight loss, Dizziness Endocrine: DENIES: Heat/cold intolerance, Polydipsia, Polyuria, Polyphagia Eyes: DENIES: Blurred vision, Diplopia, Eye inflammation, Eye pain, Vision loss , Photosensitivity, Double Vision Ears, nose, mouth, throat: COMPLAINS OF: Hearing loss, DENIES: Tinnitus, Vertigo, Nasal discharge, Oral lesions, Throat pain, Hoarseness, Ear Pain, Running Nose, Epistaxis, Sinus Pain, Toothache, Odynophagia Respiratory: COMPLAINS OF: Shortness of breath, DENIES: Apneas, Cough, Snoring , Wheezing, Hemoptysis, Sputum production Cardiovascular: COMPLAINS OF: Dyspnea on Exertion, DENIES: Chest pain, Palpitations, Syncope, PND, Lower Extremity Edema, Orthopnea, Claudication Gastrointestinal: DENIES: Abdominal pain, Black stools, Bloody stools, BRB per rectum, Constipation, Diarrhea, GERD, Nausea, Reflux, Vomiting, Difficulty Swallowing, Anorexia, See HPI Musculoskeletal: COMPLAINS OF: Joint pain, Muscle aches, Back pain, DENIES: Stiffness, Joint Swelling, Neck pain Integumentary: DENIES: Abnormal pigmentation, Nail changes, Pruritus, Rash Hematologic/lymphatic: COMPLAINS OF: Bruising Immunologic/allergic: DENIES: Eczema, Urticaria Neurologic: COMPLAINS OF: Abnormal gait Psychiatric: COMPLAINS OF: Anxiety Past Family Social History Past Medical History type 2 diabetes mellitus that he is just on diet therapy. hypertension and BPH and uses terazosin for both of these. He has recently been evaluated for chronic anemia by last ironer Dr. Acosta and had a bone marrow biopsy on 01/15/2018 because of pancytopenia. He has macrocytosis. His bone marrow results are in the computer and suggest that he has a high grade myelodysplastic syndrome with some blasts. mild hyperlipidemia. He has never been put on any medicine. Past Surgical History colon removed 09/09/2017. He had an upper endoscopy done on 09/09/2017 with gastritis, hiatal hernia. Also had a capsule endoscopy Nov 2017 for his anemia workup. He has had cholecystectomy and appendectomy and lumbar L5-S1 diskectomy. bilateral cataract extraction and lens implant. Reported Medications Hydrocodone-Acetamin 5-325 mg (Hydrocodone/Acetaminophen) 5 Mg-325 Mg Tablet 1 Tab PO Q4HR PRN Slow Fe (Ferrous Sulfate) 142 Mg (45 Mg Iron) Tablet.er 47 Mg PO DAILY Vitamin D-1000 (Cholecalciferol) 1,000 Unit Tab 2,000 Units PO DAILY Tart Awad Extract (Sour Awad Extract) 1,000 Mg Capsule Multi Vitamin Daily (Multiple Vitamin) 1 Tab Tab 1 Tab PO DAILY Magnesium Citrate 100 Mg Tab 250 Mg PO DAILY PRN Flax Seed Oil 1000 mg (Flaxseed (Linseed)) 1,000 Mg Cap 1,000 Mg PO DAILY [place]-3 Fish Oil/Vitamin (Fish Oil-Cholecalciferol) 1,000-1,000 Mg Cap 1 Cap PO DAILY Terazosin (Terazosin HCl) 5 Mg Cap 5 Mg PO BID Allergies: Coded Allergies: amoxicillin (Verified Allergy, Intermediate, rash, 01/25/18) Family History nc Social History He never . He lives alone, but has been in [facility] recently re: Tspine frx. He does not use alcohol. Never smoked. 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 Physical Exam Vital Signs Vital Signs Date Time Temp Pulse Resp B/P (MAP) Pulse Ox O2 Delivery O2 Flow Rate FiO2 02/05/18 23:01 98.5 98 20 145/64 97 02/05/18 22:11 98.9 99 20 145/65 94 02/05/18 21:21 98.6 103 20 144/65 94 02/05/18 20:51 99.2 104 20 141/65 95 02/05/18 20:34 99.7 105 20 142/65 95 02/05/18 20:05 102 20 148/63 (91) 95 Nasal Cannula 3.00 02/05/18 17:22 100 22 128/60 (82) 93 Nasal Cannula 2.00 02/05/18 16:57 24 91 Nasal Cannula 02/05/18 16:57 91 Nasal Cannula 2.00 02/05/18 16:54 98.5 101 24 127/60 (82) 91 Physical Exam GENERAL: This is a well-nourished, somewhat fraile appearing, well-developed patient, in no apparent distress. Examined in CT suite after CTA done. SKIN: few purpuric lesions on forearms, xerotic HEAD: Atraumatic. Normocephalic. No temporal or scalp tenderness. EYES: Pupils equal round and reactive. Extraocular motions intact. No scleral icterus. No injection or drainage. ENT: Nose without bleeding, purulent drainage or septal hematoma. Airway patent. poor dentition. NECK: Trachea midline. No JVD or lymphadenopathy. Supple, nontender, no meningeal signs. CARDIOVASCULAR: Regular rate and rhythm without murmurs, gallops, or rubs. RESPIRATORY: Clear to auscultation. Breath sounds equal bilaterally. No wheezes , rales, or rhonchi. Fair air movement bilat. GASTROINTESTINAL: Abdomen soft, non-tender, nondistended. No hepato-splenomegaly , or palpable masses. No guarding. MUSCULOSKELETAL: Extremities without clubbing, cyanosis, or edema. TTP mid right forearm, but no obvious abscess. He has slight erythema and edema of right forearm. +apprehension test right shoulder. No calf tenderness. COREA. NEUROLOGICAL: Awake and alert. Cranial nerves II through XII intact. Motor and sensory grossly within normal limits. Five out of 5 muscle strength in all muscle groups. Normal speech. Laboratory Laboratory Tests Test 02/05/18 16:05 02/05/18 17:20 02/05/18 18:19 02/05/18 21:45 Lactic Acid Level 1.1 Troponin I 0.04 B-Type Natriuretic Peptide 92 White Blood Count 8.9 Red Blood Count 1.70 Hemoglobin 7.0 Hematocrit 19.5 Mean Corpuscular Volume 114.9 Mean Corpuscular Hemoglobin 40.9 Mean Corpuscular Hemoglobin Concent 35.6 Red Cell Distribution Width 14.8 Platelet Count 174 Mean Platelet Volume 7.4 CBC Comment AUTO DIFF Differential Total Cells Counted 100 Neutrophils % (Manual) 69 Band Neutrophils % 2 Lymphocytes % 12 Monocytes % 17 Neutrophils # (Manual) 6.3 Differential Comment FINAL DIFF MANUAL Dohle Bodies PRESENT Platelet Estimate NORMAL Platelet Morphology Comment NORMAL Blood Urea Nitrogen 17 Creatinine 0.63 Random Glucose 142 Total Protein 7.6 Albumin 2.4 Calcium Level 8.2 Alkaline Phosphatase 97 Aspartate Amino Transf (AST/SGOT) 31 Alanine Aminotransferase (ALT/SGPT) 42 Total Bilirubin 1.7 Sodium Level 136 Potassium Level 3.3 Chloride Level 99 Carbon Dioxide Level 28.0 Anion Gap 9 Estimat Glomerular Filtration Rate 120 Date/Time Source Procedure Growth Status 02/05/18 16:05 Blood Peripheral Aerobic Blood Culture Pending Received 02/05/18 16:05 Blood Peripheral Anaerobic Blood Culture Pending Received Result Diagram: 02/05/18 1819 02/05/18 2145 Imaging Last 72 hours Impressions Chest X-Ray 02/05/18 1650 Signed Impressions: Service Date/Time: Monday, February 05, 2018 18:05 - CONCLUSION: 1. Linear atelectasis or scarring at the bases. No effusion or pneumothorax. Marshall Perry MD Upper Extremity Ultrasound 02/05/18 0000 Signed Impressions: Service Date/Time: Monday, February 05, 2018 18:31 - CONCLUSION: Normal examination. Marshall Perry MD Radius/Ulna X-Ray 02/05/18 0000 Signed Impressions: Service Date/Time: Monday, February 05, 2018 18:01 - CONCLUSION: 1. No acute bony abnormality. Advanced arthropathy of the wrist joint. Marshall Perry MD Head CT 02/05/18 0000 Signed Impressions: Service Date/Time: Monday, February 05, 2018 22:36 - CONCLUSION: 1. No acute findings. Marshall Perry MD CT Angiography 02/05/18 0000 Signed Impressions: Service Date/Time: Monday, February 05, 2018 22:38 - CONCLUSION: 1. Negative for pulmonary embolus. Subsegmental airspace disease in the lungs. No effusions. No adenopathy. Marshall Perry MD Caprini VTE Risk Assessment Caprini VTE Risk Assessment: Mod/High Risk (score >= 2) Caprini Risk Assessment Model Point Value = 1 Point Value = 2 Point Value = 3 Point Value = 5 Age 41-60 Minor surgery BMI > 25 kg/m2 Swollen legs Varicose veins or History of unexplained or recurrent spontaneous Oral contraceptives or hormone replacement Sepsis (< 1 month) Serious lung disease, including pneumonia (< 1 month) Abnormal pulmonary function Acute myocardial infarction Congestive heart failure (< 1 month) History of inflammatory bowel disease Medical patient at bed rest Age 61-74 Arthroscopic surgery Major open surgery (> 45 min) Laparoscopic surgery (> 45 min) Malignancy Confined to bed (> 72 hours) Immobilizing plaster cast Central venous access Age >= 75 History of VTE Family history of VTE Factor V Leiden Prothrombin [id number] Lupus anticoagulant Anticardiolipin antibodies Elevated serum homocysteine Heparin-induced thrombocytopenia Other congenital or acquired thrombophilia Stroke (< 1 month) Elective arthroplasty Hip, pelvis, or leg fracture Acute spinal cord injury (< 1 month) Prophylaxis Regimen Total Risk Factor Score Risk Level Prophylaxis Regimen 0-1 Low Early ambulation 2 Moderate Order ONE of the following: *Sequential Compression Device (SCD) *Heparin 5000 units SQ BID 3-4 Higher Order ONE of the following medications: *Heparin 5000 units SQ TID *Enoxaparin/Lovenox 40 mg SQ daily (WT < 150 kg, CrCl > 30 mL/min) *Enoxaparin/Lovenox 30 mg SQ daily (WT < 150 kg, CrCl > 10-29 mL/min) *Enoxaparin/Lovenox 30 mg SQ BID (WT < 150 kg, CrCl > 30 mL/min) AND/OR *Sequential Compression Device (SCD) 5 or more Highest Order ONE of the following medications: *Heparin 5000 units SQ TID (Preferred with Epidurals) *Enoxaparin/Lovenox 40 mg SQ daily (WT < 150 kg, CrCl > 30 mL/min) *Enoxaparin/Lovenox 30 mg SQ daily (WT < 150 kg, CrCl > 10-29 mL/min) *Enoxaparin/Lovenox 30 mg SQ BID (WT < 150 kg, CrCl > 30 mL/min) AND *Sequential Compression Device (SCD) Assessment and Plan Problem List: (1) Symptomatic anemia ICD Codes: D64.9 - Anemia, unspecified Status: Acute Plan: Hb appx 2 units less than his typical baseline. Has had GI w/u and follows with hematology as outpt. He is symptomatic with increased weakness, increased dyspnea and slight tachycardia. Currently being transfused 2 units PRBCs. Will repeat labs in AM. (2) MDS (myelodysplastic syndrome) ICD Codes: D46.9 - Myelodysplastic syndrome, unspecified Status: Chronic Plan: continue with outpt hematology (3) Right arm pain ICD Codes: M79.601 - Pain in right arm Status: Acute Plan: ? etiology. Mild erythema doesn't appear significant enough to produce fever. u/s and xray negative. Will monitor. Ice area. Use pain meds judiciously. Will hold off on abx for now as pt w/o any documented fever in ER. (4) Hypertension ICD Codes: I10 - Essential (primary) hypertension Status: Chronic Plan: fair control. continue meds. (5) T12 compression fracture ICD Codes: S22.080A - Wedge compression fracture of T11-T12 vertebra, initial encounter for closed fracture Status: Acute Plan: recent admission for same. Will continue pain med. PT eval. Likely return to rehab at d/c. Discussed Condition With pt and ER provider. Physician Certification 2 Midnight Certification Type: Admission for Inpatient Services Order for Inpatient Services The services are ordered in accordance with Medicare regulations or non- Medicare payer requirements, as applicable. In the case of services not specified as inpatient-only, they are appropriately provided as inpatient services in accordance with the 2-midnight benchmark. Estimated LOS (days): 2 days is the estimated time the patient will need to remain in the hospital, assuming treatment plan goals are met and no additional complications. Post-Hospital Plan: SNF Problem Qualifiers (1) Hypertension: Qualified Codes: I10 - Essential (primary) hypertension Blaise Nolasco MD PhD Feb 05, 2018 23:47
[2018-02-06] VITALS (7 sets, daily range): BP systolic 108–138; BP diastolic 53–66; PULSE 87–99; RESP 16–20; TEMP 96.6–99.3; O2SAT 91–97
[2018-02-06] MEDS ORDERED: POTASSIUM CHLORIDE 20 MEQ CONTROLLED RELEASE TAB PO ONE (04:15)
[2018-02-06] MEDS: ACETAMINOPHEN/HYDROcodone 325 MG/5 MG TAB PO PRN (04:19)
[2018-02-06] MEDS ORDERED: POTASSIUM CHLORIDE 10 MEQ CONTROLLED RELEASE TAB PO ONE (05:00)
[2018-02-06 10:57] LABS: HEMATOCRIT 24.3 % (39.0-51.0); HEMOGLOBIN 8.6 GM/DL (13.0-17.0); MEAN CELL VOLUME 108.1 FL (80.0-100.0); MEAN CORPUSCULAR HEMOGLOBIN 38.1 PG (27.0-34.0); MEAN CORPUSCULAR HGB CONC 35.2 % (32.0-36.0); MEAN PLATELET VOLUME 7.5 FL (7.0-11.0); PLATELET COUNT 177 TH/MM3 (150-450); RED BLOOD COUNT 2.25 MIL/MM3 (4.50-5.90); WHITE BLOOD COUNT 8.1 TH/MM3 (4.0-11.0)
[2018-02-06 11:13] LABS: ALBUMIN 2.3 GM/DL (3.4-5.0); ALT (GPT) 47 U/L (12-78); AST (GOT) 32 U/L (15-37); BICARBONATE 30.2 MEQ/L (21.0-32.0); CALCIUM 8.5 MG/DL (8.5-10.1); CHLORIDE 101 MEQ/L (98-107); GLOMERULAR FILTRATION RATE 127 ML/MIN (>89); GLUCOSE,RANDOM 122 MG/DL (74-106); SODIUM (NA) 138 MEQ/L (136-145)
[2018-02-06 11:19] LABS: ALKALINE PHOSPHATASE 89 U/L (45-117); BLOOD UREA NITROGEN 19 MG/DL (7-18); TOTAL BILIRUBIN ADULT 1.8 MG/DL (0.2-1.0); TOTAL PROTEIN 7.1 GM/DL (6.4-8.2)
--- NOTE | 2018-02-06 11:32 | HHI.PR ---
Subjective Remarks Pt complains of pain and difficulty moving the RUE gonsalves to pain The dorsal aspect of his hand is red and warm and he has painful passive motion of the entire arm Pt has been afebrile Objective Vitals Vital Signs Date Time Temp Pulse Resp B/P (MAP) Pulse Ox O2 Delivery O2 Flow Rate FiO2 02/06/18 08:00 96.6 87 20 125/59 (81) 91 02/06/18 03:59 99.3 99 16 131/62 (85) 93 02/06/18 03:32 02/06/18 00:12 98.5 96 20 137/66 96 02/05/18 23:25 98.6 93 20 143/67 96 02/05/18 23:01 98.5 98 20 145/64 97 02/05/18 22:11 98.9 99 20 145/65 94 02/05/18 21:21 98.6 103 20 144/65 94 02/05/18 20:51 99.2 104 20 141/65 95 02/05/18 20:34 99.7 105 20 142/65 95 02/05/18 20:05 102 20 148/63 (91) 95 Nasal Cannula 3.00 02/05/18 17:22 100 22 128/60 (82) 93 Nasal Cannula 2.00 02/05/18 16:57 24 91 Nasal Cannula 02/05/18 16:57 91 Nasal Cannula 2.00 02/05/18 16:54 98.5 101 24 127/60 (82) 91 Result Diagram: 02/06/18 1025 02/06/18 1025 Other Results Laboratory Tests Test 02/05/18 16:05 02/05/18 17:20 02/05/18 18:19 02/05/18 21:45 Lactic Acid Level 1.1 mmol/L Troponin I 0.04 NG/ML B-Type Natriuretic Peptide 92 PG/ML White Blood Count 8.9 TH/MM3 Red Blood Count 1.70 MIL/MM3 Hemoglobin 7.0 GM/DL Hematocrit 19.5 % Mean Corpuscular Volume 114.9 FL Mean Corpuscular Hemoglobin 40.9 PG Mean Corpuscular Hemoglobin Concent 35.6 % Red Cell Distribution Width 14.8 % Platelet Count 174 TH/MM3 Mean Platelet Volume 7.4 FL CBC Comment AUTO DIFF Differential Total Cells Counted 100 Neutrophils % (Manual) 69 % Band Neutrophils % 2 % Lymphocytes % 12 % Monocytes % 17 % Neutrophils # (Manual) 6.3 TH/MM3 Differential Comment FINAL DIFF MANUAL Dohle Bodies PRESENT Platelet Estimate NORMAL Platelet Morphology Comment NORMAL Blood Urea Nitrogen 17 MG/DL Creatinine 0.63 MG/DL Random Glucose 142 MG/DL Total Protein 7.6 GM/DL Albumin 2.4 GM/DL Calcium Level 8.2 MG/DL Alkaline Phosphatase 97 U/L Aspartate Amino Transf (AST/SGOT) 31 U/L Alanine Aminotransferase (ALT/SGPT) 42 U/L Total Bilirubin 1.7 MG/DL Sodium Level 136 MEQ/L Potassium Level 3.3 MEQ/L Chloride Level 99 MEQ/L Carbon Dioxide Level 28.0 MEQ/L Anion Gap 9 MEQ/L Estimat Glomerular Filtration Rate 120 ML/MIN Test 02/06/18 10:25 White Blood Count 8.1 TH/MM3 Red Blood Count 2.25 MIL/MM3 Hemoglobin 8.6 GM/DL Hematocrit 24.3 % Mean Corpuscular Volume 108.1 FL Mean Corpuscular Hemoglobin 38.1 PG Mean Corpuscular Hemoglobin Concent 35.2 % Red Cell Distribution Width 21.0 % Platelet Count 177 TH/MM3 Mean Platelet Volume 7.5 FL CBC Comment AUTO DIFF Blood Urea Nitrogen 19 MG/DL Creatinine 0.60 MG/DL Random Glucose 122 MG/DL Total Protein 7.1 GM/DL Albumin 2.3 GM/DL Calcium Level 8.5 MG/DL Alkaline Phosphatase 89 U/L Aspartate Amino Transf (AST/SGOT) 32 U/L Alanine Aminotransferase (ALT/SGPT) 47 U/L Total Bilirubin 1.8 MG/DL Sodium Level 138 MEQ/L Potassium Level 3.4 MEQ/L Chloride Level 101 MEQ/L Carbon Dioxide Level 30.2 MEQ/L Anion Gap 7 MEQ/L Estimat Glomerular Filtration Rate 127 ML/MIN Imaging Last 72 hours Impressions Chest X-Ray 02/05/18 1650 Signed Impressions: Service Date/Time: Monday, February 05, 2018 18:05 - CONCLUSION: 1. Linear atelectasis or scarring at the bases. No effusion or pneumothorax. Marshall Perry MD Upper Extremity Ultrasound 02/05/18 0000 Signed Impressions: Service Date/Time: Monday, February 05, 2018 18:31 - CONCLUSION: Normal examination. Marshall Perry MD Radius/Ulna X-Ray 02/05/18 0000 Signed Impressions: Service Date/Time: Monday, February 05, 2018 18:01 - CONCLUSION: 1. No acute bony abnormality. Advanced arthropathy of the wrist joint. Marshall Perry MD Head CT 02/05/18 0000 Signed Impressions: Service Date/Time: Monday, February 05, 2018 22:36 - CONCLUSION: 1. No acute findings. Marshall Perry MD CT Angiography 02/05/18 0000 Signed Impressions: Service Date/Time: Monday, February 05, 2018 22:38 - CONCLUSION: 1. Negative for pulmonary embolus. Subsegmental airspace disease in the lungs. No effusions. No adenopathy. Marshall Perry MD Objective Remarks General: NAD, AAOx3 Chest: CTA Cardiac: Regular Abd: +BS, soft ND/NT Ext: Erythema and warmth of the dorsal aspect of the right hand. Painful passive ROM of the entire right arm A/P Problem List: (1) Symptomatic anemia ICD Codes: D64.9 - Anemia, unspecified Status: Acute Plan: - Pt is an 87 y/o male with myelodysplastic syndrome, macrocytic anemia with recent admit for vertebral compression fractures. - He was brought to the ED from the SNF for complaints of SOB and right UE swelling and pain. - His labs at admission revealed his Hgb appx 2 units less than his typical baseline. Has had GI w/u and follows with hematology as outpt. - Pt was symptomatic with increased weakness, increased dyspnea and slight tachycardia and was therefore transfused 2 units PRBCs. - Repeat labs this morning with Hgb 8.6/Hct 24.3 - Pt is symptomatically improving. (2) MDS (myelodysplastic syndrome) ICD Codes: D46.9 - Myelodysplastic syndrome, unspecified Status: Chronic Plan: - Pt had BM biopsy on 01/15. He has not had f/u yet with Dr. Santos regarding these results - We will inform Dr. Santos of the pts admission (3) Right arm pain ICD Codes: M79.601 - Pain in right arm Status: Acute Plan: - Etiology unclear. - RUE US was negative for DVT - Radius/Ulna Xray of RUE --> No acute bony abnormality. Advanced arthropathy of the wrist joint. - Pt with mild erythema of the dorsal aspect of the hand with painful passive movement. - Cont. to ice area. - Elevated RUE - Check Shoulder Xray - Start Clindamycin 900mg Q8H IV - Given a few doses of Naprosyn (4) Hypertension ICD Codes: I10 - Essential (primary) hypertension Status: Chronic Plan: - Fair control. - Pt does not take any antihypertensives as an outpt. 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 - Pt was seen by NSG at that time and pt recommended conservative management with TLSO brace and PT at SNF. - PT eval ordered. - Pt likely return to rehab at d/c. Assessment and Plan Patient examined. Assessment and plan formulated with Jeni Calderon PA-C. I agree with the above. RIGHT ARM SWELLING. WOULD APPEAR TO BE POSSIBLE CELLULITIS AND ?TENOSYNOVITIS FROM OLD HAND IV SITE DIFFICULTY MOVING THE PAINFUL SWOLLEN HAND AND ARM. XRAY SHOULDER IT ALSO IS TENDER ELEVATED. NSAID/ABX...REEVALUATE HIGH GRADE MDS. SPOKE WITH DR SANTOS. JUST GIVE BLOOD AND HAVE F/U OFFICE FOR PRN PROCRIT AND PRBC WITH CBC CHECKING. DOUBT IF HE IS CANDIDATE FOR ANYTHING ELSE. PLAN BACK TO SNF. Problem Qualifiers (1) Hypertension: Qualified Codes: I10 - Essential (primary) hypertension Jeni Calderon Feb 06, 2018 11:31 Gregory Robles MD Feb 06, 2018 12:39
[2018-02-06 11:42] LABS: BANDS 3 % (0-6); LYMPHOCYTES 8 % (9-44); MONOCYTES 18 % (0-8); POLYS (SEG NEUTROPHILS) 71 % (16-70)
[2018-02-06] MEDS ORDERED: NAPROXEN 500 MG TAB PO ONE (13:00)
--- NOTE | 2018-02-06 14:09 | RADRPT ---
EXAM DATE/TIME: 02/06/2018 13:27 [facility] COMPARISON: No previous studies available for comparison. INDICATIONS : Right arm pain and swelling from shoulder to hand, denies trauma MEDICAL HISTORY : Hypertension. Gastroesophageal reflux disease. anemia, arthritis, vertito, blindness SURGICAL HISTORY : Cholecystectomy. Appendectomy. discectomy, lumbar ENCOUNTER: Subsequent ACUITY: 1 week PAIN SCORE: 10/10 LOCATION: Right shoulder FINDINGS: Degenerative changes are noted involving the right glenohumeral and acromioclavicular joints. There i s no acute fracture or dislocation. CONCLUSION: 1. Degenerative changes involving the right glenohumeral and acromioclavicular joints. 2. No acute fracture or dislocation. Vance Alvarenga MD on February 06, 2018 at 14:05 Board Certified Radiologist. This report was verified electronically.
[2018-02-06] MEDS: CLINDAMYCIN 900 MG/NS PREMIX 50 ML IV SCH ×2 (14:48→20:04)
[2018-02-06] MEDS: NAPROXEN 500 MG TAB PO SCH (20:08)
[2018-02-07] VITALS (10 sets, daily range): BP systolic 119–146; BP diastolic 57–92; PULSE 80–90; RESP 15–20; TEMP 96.1–98.2; O2SAT 92–97
[2018-02-07] MEDS: CLINDAMYCIN 900 MG/NS PREMIX 50 ML IV SCH ×3 (05:20→20:56)
[2018-02-07 06:21] LABS: HEMATOCRIT 22.3 % (39.0-51.0); HEMOGLOBIN 7.9 GM/DL (13.0-17.0); MEAN CORPUSCULAR HEMOGLOBIN 38.7 PG (27.0-34.0); MEAN CORPUSCULAR HGB CONC 35.5 % (32.0-36.0); MEAN PLATELET VOLUME 7.6 FL (7.0-11.0); PLATELET COUNT 147 TH/MM3 (150-450); RED BLOOD COUNT 2.05 MIL/MM3 (4.50-5.90); RED CELL DISTRIBUTION WIDTH 20.9 % (11.6-17.2); WHITE BLOOD COUNT 6.6 TH/MM3 (4.0-11.0)
[2018-02-07 06:48] LABS: BICARBONATE 30.8 MEQ/L (21.0-32.0); CALCIUM 8.3 MG/DL (8.5-10.1); CREATININE 0.59 MG/DL (0.60-1.30); MAGNESIUM 2.4 MG/DL (1.5-2.5)
[2018-02-07] MEDS: NAPROXEN 500 MG TAB PO SCH (07:37)
[2018-02-07 09:33] LABS: BANDS 1 % (0-6); LYMPHOCYTES 15 % (9-44); MONOCYTES 13 % (0-8); MYELOCYTES 1 % (0-0); NEUTROPHIL # MANUAL DIFF 4.8 TH/MM3 (1.8-7.7); POLYS (SEG NEUTROPHILS) 70 % (16-70)
[2018-02-07] MEDS ORDERED: FUROSEMIDE 20 MG/2 ML VIAL IV PUSH ONE ×2 (10:00→20:45)
--- NOTE | 2018-02-07 10:05 | HHI.PR ---
Subjective Remarks Pt with much less pain in the RUE and able to move it better today Still with some erythema on the dorsal aspect of the right hand but less tender today Pt is confused asking where he is at today No other complaints this morning. Objective Vitals Vital Signs Date Time Temp Pulse Resp B/P (MAP) Pulse Ox O2 Delivery O2 Flow Rate FiO2 02/07/18 08:00 96.7 80 16 122/63 (82) 96 02/07/18 05:22 95 Nasal Cannula 2.00 02/07/18 04:00 96.1 83 20 134/61 (85) 95 02/07/18 00:00 96.4 83 20 121/57 (78) 95 02/06/18 20:10 96.6 91 18 119/58 (78) 97 02/06/18 20:06 96 Nasal Cannula 3.00 02/06/18 20:00 96.8 89 20 116/57 (76) 95 02/06/18 16:00 97.5 92 20 108/53 (71) 95 02/06/18 12:00 98.2 88 20 138/61 (86) 94 Result Diagram: 02/07/18 0456 02/07/18 0456 Other Results Laboratory Tests Test 02/05/18 16:05 02/05/18 17:20 02/05/18 18:19 02/05/18 21:45 Lactic Acid Level 1.1 mmol/L Troponin I 0.04 NG/ML B-Type Natriuretic Peptide 92 PG/ML White Blood Count 8.9 TH/MM3 Red Blood Count 1.70 MIL/MM3 Hemoglobin 7.0 GM/DL Hematocrit 19.5 % Mean Corpuscular Volume 114.9 FL Mean Corpuscular Hemoglobin 40.9 PG Mean Corpuscular Hemoglobin Concent 35.6 % Red Cell Distribution Width 14.8 % Platelet Count 174 TH/MM3 Mean Platelet Volume 7.4 FL CBC Comment AUTO DIFF Differential Total Cells Counted 100 Neutrophils % (Manual) 69 % Band Neutrophils % 2 % Lymphocytes % 12 % Monocytes % 17 % Neutrophils # (Manual) 6.3 TH/MM3 Differential Comment FINAL DIFF MANUAL Dohle Bodies PRESENT Platelet Estimate NORMAL Platelet Morphology Comment NORMAL Blood Urea Nitrogen 17 MG/DL Creatinine 0.63 MG/DL Random Glucose 142 MG/DL Total Protein 7.6 GM/DL Albumin 2.4 GM/DL Calcium Level 8.2 MG/DL Alkaline Phosphatase 97 U/L Aspartate Amino Transf (AST/SGOT) 31 U/L Alanine Aminotransferase (ALT/SGPT) 42 U/L Total Bilirubin 1.7 MG/DL Sodium Level 136 MEQ/L Potassium Level 3.3 MEQ/L Chloride Level 99 MEQ/L Carbon Dioxide Level 28.0 MEQ/L Anion Gap 9 MEQ/L Estimat Glomerular Filtration Rate 120 ML/MIN Test 02/06/18 10:25 02/07/18 04:56 White Blood Count 8.1 TH/MM3 6.6 TH/MM3 Red Blood Count 2.25 MIL/MM3 2.05 MIL/MM3 Hemoglobin 8.6 GM/DL 7.9 GM/DL Hematocrit 24.3 % 22.3 % Mean Corpuscular Volume 108.1 FL 109.0 FL Mean Corpuscular Hemoglobin 38.1 PG 38.7 PG Mean Corpuscular Hemoglobin Concent 35.2 % 35.5 % Red Cell Distribution Width 21.0 % 20.9 % Platelet Count 177 TH/MM3 147 TH/MM3 Mean Platelet Volume 7.5 FL 7.6 FL CBC Comment AUTO DIFF AUTO DIFF Differential Total Cells Counted 100 100 Neutrophils % (Manual) 71 % 70 % Band Neutrophils % 3 % 1 % Lymphocytes % 8 % 15 % Monocytes % 18 % 13 % Neutrophils # (Manual) 6.0 TH/MM3 4.8 TH/MM3 Differential Comment FINAL DIFF MANUAL FINAL DIFF MANUAL Platelet Estimate NORMAL NORMAL Platelet Morphology Comment NORMAL NORMAL Blood Urea Nitrogen 19 MG/DL 24 MG/DL Creatinine 0.60 MG/DL 0.59 MG/DL Random Glucose 122 MG/DL 112 MG/DL Total Protein 7.1 GM/DL Albumin 2.3 GM/DL Calcium Level 8.5 MG/DL 8.3 MG/DL Alkaline Phosphatase 89 U/L Aspartate Amino Transf (AST/SGOT) 32 U/L Alanine Aminotransferase (ALT/SGPT) 47 U/L Total Bilirubin 1.8 MG/DL Sodium Level 138 MEQ/L 143 MEQ/L Potassium Level 3.4 MEQ/L 3.3 MEQ/L Chloride Level 101 MEQ/L 104 MEQ/L Carbon Dioxide Level 30.2 MEQ/L 30.8 MEQ/L Anion Gap 7 MEQ/L 8 MEQ/L Estimat Glomerular Filtration Rate 127 ML/MIN 130 ML/MIN Myelocytes 1 % Magnesium Level 2.4 MG/DL Imaging Last Impressions Shoulder X-Ray 02/06/18 0000 Signed Impressions: Service Date/Time: January 13:27 - CONCLUSION: 1. Degenerative changes involving the right glenohumeral and acromioclavicular joints. 2. No acute fracture or dislocation. Vance Alvarenga MD Chest X-Ray 02/05/18 1650 Signed Impressions: Service Date/Time: Monday, February 05, 2018 18:05 - CONCLUSION: 1. Linear atelectasis or scarring at the bases. No effusion or pneumothorax. Marshall Perry MD Upper Extremity Ultrasound 02/05/18 0000 Signed Impressions: Service Date/Time: Monday, February 05, 2018 18:31 - CONCLUSION: Normal examination. Marshall Perry MD Radius/Ulna X-Ray 02/05/18 0000 Signed Impressions: Service Date/Time: Monday, February 05, 2018 18:01 - CONCLUSION: 1. No acute bony abnormality. Advanced arthropathy of the wrist joint. Marshall Perry MD Head CT 02/05/18 0000 Signed Impressions: Service Date/Time: Monday, February 05, 2018 22:36 - CONCLUSION: 1. No acute findings. Marshall Perry MD CT Angiography 02/05/18 0000 Signed Impressions: Service Date/Time: Monday, February 05, 2018 22:38 - CONCLUSION: 1. Negative for pulmonary embolus. Subsegmental airspace disease in the lungs. No effusions. No adenopathy. Marshall Perry MD Objective Remarks General: NAD, AAOx3 Chest: CTA Cardiac: Regular Abd: +BS, soft ND/NT Ext: Erythema and warmth of the dorsal aspect of the right hand much less tender and able to passively move right arm today, still some pain in the fingers and unable to actively open up his hand without pain A/P Problem List: (1) Symptomatic anemia ICD Codes: D64.9 - Anemia, unspecified Status: Acute Plan: - Pt is an 87 y/o male with myelodysplastic syndrome, macrocytic anemia with recent admit for vertebral compression fractures. - He was brought to the ED from the SNF for complaints of SOB and right UE swelling and pain. - His labs at admission revealed his Hgb appx 2 units less than his typical baseline. Has had GI w/u and follows with hematology as outpt. - Pt was symptomatic with increased weakness, increased dyspnea and slight tachycardia and was therefore transfused 2 units PRBCs. - Repeat on 02/06 with Hgb 8.6/Hct 24.3 - Pt is symptomatically improving. 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 He has not had f/u yet with Dr. Santos regarding these results - Spoke with Dr. Santos on 02/06 and recommended providing pt with blood transfusions PRN and f/u in the office for PRN Procrit and PRBCs PRN (3) Right arm pain ICD Codes: M79.601 - Pain in right arm Status: Acute Plan: - Etiology unclear, ?tenosynovitis from old IV site in his hand - RUE US was negative for DVT - Radius/Ulna Xray of RUE --> No acute bony abnormality. Advanced arthropathy of the wrist joint. - Pt with mild erythema of the dorsal aspect of the hand with painful passive movement. - Shoulder Xray (02/06) --> Degenerative changes involving the right glenohumeral and acromioclavicular joints. No acute fracture or dislocation - Cont. to ice area. - Elevated RUE - Pt was started on Clindamycin 900mg Q8H IV on 02/06 and given a few doses of Naprosyn with symptomatic improvement. (4) Hypertension ICD Codes: I10 - Essential (primary) hypertension Status: Chronic Plan: - Fair control. - Pt does not take any antihypertensives as an outpt. 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 - Pt was seen by NSG at that time and pt recommended conservative management with TLSO brace and PT at SNF. - PT eval ordered. - Pt likely return to rehab at d/c. Assessment and Plan Patient examined. Assessment and plan formulated with Jeni Calderon PA-C. I agree with the above. right hand/wrist/forearm cellulitis and swelling felt to be related to recent iv stick. much better but still a focus and swelling and tenderness with hand contraction around the wrist. If not better again by tomorrow will ask for soft tissue u/s and hand surgery if needed. MDS. prn prbc. plan epo shot before d/c Problem Qualifiers (1) Hypertension: Qualified Codes: I10 - Essential (primary) hypertension Jeni Calderon Feb 07, 2018 10:05 Gregory Robles MD Feb 07, 2018 15:06
[2018-02-07] MEDS ORDERED: POTASSIUM CHLORIDE 10 MEQ CONTROLLED RELEASE TAB PO SCH ×2 (12:00)
[2018-02-07] MEDS: ACETAMINOPHEN/HYDROcodone 325 MG/5 MG TAB PO PRN (19:48)
[2018-02-08 01:33] VITALS: BP 149/98; PULSE 97; RESP 16; TEMP 98; O2SAT 92
[2018-02-08 03:23] VITALS: BP 145/68; PULSE 94; RESP 20; TEMP 98; O2SAT 94
[2018-02-08] MEDS: CLINDAMYCIN 900 MG/NS PREMIX 50 ML IV SCH ×3 (05:42→20:11)
[2018-02-08] MEDS: ACETAMINOPHEN/HYDROcodone 325 MG/5 MG TAB PO PRN (06:27)
[2018-02-08 07:51] LABS: AUTOMATED NEUTROPHIL # 5.2 TH/MM3 (1.8-7.7); BASOPHIL % 0.2 % (0.0-2.0); EOSINOPHIL # 0.2 TH/MM3 (0-0.4); EOSINOPHIL % 2.1 % (0.0-4.0); HEMATOCRIT 30.5 % (39.0-51.0); HEMOGLOBIN 10.7 GM/DL (13.0-17.0); LYMPH % 12.7 % (9.0-44.0); LYMPHOCYTE # 0.9 TH/MM3 (1.0-4.8); MEAN CELL VOLUME 104.1 FL (80.0-100.0); MEAN CORPUSCULAR HEMOGLOBIN 36.4 PG (27.0-34.0); MEAN PLATELET VOLUME 7.7 FL (7.0-11.0); MONO % 15.7 % (0.0-8.0); MONOCYTE # 1.2 TH/MM3 (0-0.9); NEUT % 69.3 % (16.0-70.0); PLATELET COUNT 164 TH/MM3 (150-450); RED BLOOD COUNT 2.93 MIL/MM3 (4.50-5.90); RED CELL DISTRIBUTION WIDTH 23.9 % (11.6-17.2); WHITE BLOOD COUNT 7.5 TH/MM3 (4.0-11.0)
[2018-02-08 08:00] VITALS: BP 149/65; PULSE 80; RESP 18; TEMP 98; O2SAT 91
[2018-02-08 08:22] LABS: CALCIUM 8.3 MG/DL (8.5-10.1); CREATININE 0.56 MG/DL (0.60-1.30); MAGNESIUM 2.2 MG/DL (1.5-2.5)
--- NOTE | 2018-02-08 11:03 | HHI.PR ---
Subjective Remarks overall the right arm swelling much better still trouble bending right wrist and opening hand Objective Vitals heart reg lung cta abd s/nt ext right wrist swelling improved. enrober tender and difficult to flex/extend hand/fingers flexed. Vital Signs Date Time Temp Pulse Resp B/P (MAP) Pulse Ox O2 Delivery O2 Flow Rate FiO2 02/08/18 09:15 Room Air 02/08/18 08:00 98.0 80 18 149/65 (93) 91 02/08/18 03:23 98.0 94 20 145/68 (93) 94 02/08/18 01:33 98.0 97 16 149/98 92 02/07/18 22:42 97.8 87 16 127/86 92 02/07/18 22:27 97.8 90 16 139/92 92 02/07/18 20:51 98.2 84 16 146/85 92 02/07/18 20:00 98.1 86 16 139/62 (87) 94 02/07/18 17:12 97.7 83 15 119/58 02/07/18 16:00 97.7 83 15 119/58 (78) 95 02/07/18 12:00 97.4 86 16 137/64 (88) 97 Result Diagram: 02/08/18 0559 02/08/18 0559 Imaging Last Impressions Shoulder X-Ray 02/06/18 0000 Signed Impressions: Service Date/Time: January 13:27 - CONCLUSION: 1. Degenerative changes involving the right glenohumeral and acromioclavicular joints. 2. No acute fracture or dislocation. Vance Alvarenga MD Chest X-Ray 02/05/18 1650 Signed Impressions: Service Date/Time: Monday, February 05, 2018 18:05 - CONCLUSION: 1. Linear atelectasis or scarring at the bases. No effusion or pneumothorax. Marshall Perry MD Upper Extremity Ultrasound 02/05/18 0000 Signed Impressions: Service Date/Time: Monday, February 05, 2018 18:31 - CONCLUSION: Normal examination. Marshall Perry MD Radius/Ulna X-Ray 02/05/18 0000 Signed Impressions: Service Date/Time: Monday, February 05, 2018 18:01 - CONCLUSION: 1. No acute bony abnormality. Advanced arthropathy of the wrist joint. Marshall Perry MD Head CT 02/05/18 0000 Signed Impressions: Service Date/Time: Monday, February 05, 2018 22:36 - CONCLUSION: 1. No acute findings. Marshall Perry MD CT Angiography 02/05/18 0000 Signed Impressions: Service Date/Time: Monday, February 05, 2018 22:38 - CONCLUSION: 1. Negative for pulmonary embolus. Subsegmental airspace disease in the lungs. No effusions. No adenopathy. Marshall Perry MD A/P Problem List: (1) Symptomatic anemia ICD Codes: D64.9 - Anemia, unspecified Status: Acute Plan: - Pt is an 87 y/o male with myelodysplastic syndrome, macrocytic anemia with recent admit for vertebral compression fractures. - He was brought to the ED from the SNF for complaints of SOB and right UE swelling and pain. - His labs at admission revealed his Hgb appx 2 units less than his typical baseline. Has had GI w/u and follows with hematology as outpt. - Pt was symptomatic with increased weakness, increased dyspnea and slight tachycardia and was therefore transfused 2 units PRBCs. - Repeat on 02/06 with Hgb 8.6/Hct 24.3 - Pt is symptomatically improving. - His H/H decreased back down to Hgb 7.9/Hct 22.3 and 2 units PRBCs given on (2) Right arm pain ICD Codes: M79.601 - Pain in right arm Status: Acute Plan: - right wrist/forearm pain and swelling felt related to old iv site. cellulitis. ?tenosynovitis - RUE US was negative for DVT - Radius/Ulna Xray of RUE --> No acute bony abnormality. Advanced arthropathy of the wrist joint. - Pt with mild erythema of the dorsal aspect of the hand with painful passive movement. - Shoulder Xray (02/06) --> Degenerative changes involving the right glenohumeral and acromioclavicular joints. No acute fracture or dislocation pt responding to iv clinda. 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 He has not had f/u yet with Dr. Santos regarding these results - Spoke with Dr. Santos on 02/06 and recommended providing pt with blood transfusions PRN and f/u in the office for PRN Procrit and PRBCs PRN (4) Hypertension ICD Codes: I10 - Essential (primary) hypertension Status: Chronic Plan: - Fair control. - Pt does not take any antihypertensives as an outpt. 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 - Pt was seen by NSG at that time and pt recommended conservative management with TLSO brace and PT at SNF. - PT eval ordered. - Pt likely return to rehab at d/c. Problem Qualifiers (1) Hypertension: Qualified Codes: I10 - Essential (primary) hypertension Gregory Robles MD Feb 08, 2018 11:03
[2018-02-08 12:00] VITALS: BP 152/70; PULSE 77; RESP 16; TEMP 97.9; O2SAT 93
[2018-02-08] MEDS ORDERED: NAPROXEN 500 MG TAB PO ONE (12:00)
[2018-02-08] MEDS ORDERED: POTASSIUM CHLORIDE 20 MEQ CONTROLLED RELEASE TAB PO ONE (12:00)
--- NOTE | 2018-02-08 12:13 | RADRPT ---
EXAM DATE/TIME: 02/08/2018 11:33 [facility] COMPARISON: No previous studies available for comparison. INDICATIONS : Right wrist and forearm; evaluate for fluid collection. MEDICAL HISTORY : Hypercholesterolemia. Hypertension. Gastroesophageal reflux disease. Blindness. Dizziness. Ulcer. Ar thritis. Measles. Anemia. Blood transfusion. SURGICAL HISTORY : Cholecystectomy. Discectomy, lumbar. Appendectomy. Bilateral cataract removal. ENCOUNTER: Initial ACUITY: 1 day PAIN SCORE: 4/10 LOCATION: Right wrist and forearm. AREA EVALUATED: Thumb side of wrist. FINDINGS: There appears to be a hypoechoic nearly anechoic area adjacent to a tendon in the region of swelling. The area of hypoechoic area measures 2.4 x 1.8 x 0.8 cm. CONCLUSION: Suspected complex fluid around the tendon in the right wrist region likely related to a ganglion and/ or focal tendinitis. A hematoma could have similar appearance in the correct clinical situation. Daljit Al MD on February 08, 2018 at 12:04 Board Certified Radiologist. This report was verified electronically.
[2018-02-08 16:00] VITALS: BP 138/64; PULSE 87; RESP 16; TEMP 98.1; O2SAT 93
[2018-02-08 21:40] VITALS: BP 142/72; PULSE 98; RESP 20; TEMP 98; O2SAT 93
[2018-02-09 00:55] VITALS: BP 146/70; PULSE 91; RESP 18; TEMP 98.4; O2SAT 92
[2018-02-09 04:00] VITALS: BP 148/67; PULSE 92; RESP 18; TEMP 98.6; O2SAT 94
[2018-02-09] MEDS: CLINDAMYCIN 900 MG/NS PREMIX 50 ML IV SCH ×2 (05:01→12:35)
[2018-02-09 08:00] VITALS: BP 111/70; PULSE 81; RESP 16; TEMP 98.4; O2SAT 93
--- NOTE | 2018-02-09 11:17 | HHI.PR ---
Subjective Remarks Pt walked with PT this morning He is moving his fingers and right hand better today, able to actively open and close his slip presser slowly Afebrile Objective Vitals Vital Signs Date Time Temp Pulse Resp B/P (MAP) Pulse Ox O2 Delivery O2 Flow Rate FiO2 02/09/18 08:00 98.4 81 16 111/70 (84) 93 02/09/18 07:41 Room Air 02/09/18 04:00 98.6 92 18 148/67 (94) 94 02/09/18 00:55 98.4 91 18 146/70 (95) 92 02/08/18 21:40 98.0 98 20 142/72 (95) 93 02/08/18 16:00 98.1 87 16 138/64 (88) 93 02/08/18 14:18 17 02/08/18 12:00 97.9 77 16 152/70 (97) 93 Result Diagram: 02/08/18 0559 02/08/18 0559 Other Results Laboratory Tests Test 02/08/18 05:59 White Blood Count 7.5 TH/MM3 Red Blood Count 2.93 MIL/MM3 Hemoglobin 10.7 GM/DL Hematocrit 30.5 % Mean Corpuscular Volume 104.1 FL Mean Corpuscular Hemoglobin 36.4 PG Mean Corpuscular Hemoglobin Concent 35.0 % Red Cell Distribution Width 23.9 % Platelet Count 164 TH/MM3 Mean Platelet Volume 7.7 FL Neutrophils (%) (Auto) 69.3 % Lymphocytes (%) (Auto) 12.7 % Monocytes (%) (Auto) 15.7 % Eosinophils (%) (Auto) 2.1 % Basophils (%) (Auto) 0.2 % Neutrophils # (Auto) 5.2 TH/MM3 Lymphocytes # (Auto) 0.9 TH/MM3 Monocytes # (Auto) 1.2 TH/MM3 Eosinophils # (Auto) 0.2 TH/MM3 Basophils # (Auto) 0.0 TH/MM3 CBC Comment DIFF FINAL Differential Comment Blood Urea Nitrogen 21 MG/DL Creatinine 0.56 MG/DL Random Glucose 118 MG/DL Calcium Level 8.3 MG/DL Magnesium Level 2.2 MG/DL Sodium Level 143 MEQ/L Potassium Level 3.4 MEQ/L Chloride Level 103 MEQ/L Carbon Dioxide Level 32.0 MEQ/L Anion Gap 8 MEQ/L Estimat Glomerular Filtration Rate 138 ML/MIN Imaging Last Impressions Shoulder X-Ray 02/06/18 0000 Signed Impressions: Service Date/Time: January 13:27 - CONCLUSION: 1. Degenerative changes involving the right glenohumeral and acromioclavicular joints. 2. No acute fracture or dislocation. Vance Alvarenga MD Chest X-Ray 02/05/18 1650 Signed Impressions: Service Date/Time: Monday, February 05, 2018 18:05 - CONCLUSION: 1. Linear atelectasis or scarring at the bases. No effusion or pneumothorax. Marshall Perry MD Upper Extremity Ultrasound 02/05/18 0000 Signed Impressions: Service Date/Time: Monday, February 05, 2018 18:31 - CONCLUSION: Normal examination. Marshall Perry MD Radius/Ulna X-Ray 02/05/18 0000 Signed Impressions: Service Date/Time: Monday, February 05, 2018 18:01 - CONCLUSION: 1. No acute bony abnormality. Advanced arthropathy of the wrist joint. Marshall Perry MD Head CT 02/05/18 0000 Signed Impressions: Service Date/Time: Monday, February 05, 2018 22:36 - CONCLUSION: 1. No acute findings. Marshall Perry MD CT Angiography 02/05/18 0000 Signed Impressions: Service Date/Time: Monday, February 05, 2018 22:38 - CONCLUSION: 1. Negative for pulmonary embolus. Subsegmental airspace disease in the lungs. No effusions. No adenopathy. Marshall Perry MD A/P Problem List: (1) Symptomatic anemia ICD Codes: D64.9 - Anemia, unspecified Status: Acute Plan: - Pt is an 87 y/o male with myelodysplastic syndrome, macrocytic anemia with recent admit for vertebral compression fractures. - He was brought to the ED from the SNF for complaints of SOB and right UE swelling and pain. - His labs at admission revealed his Hgb appx 2 units less than his typical baseline. Has had GI w/u and follows with hematology as outpt. - Pt was symptomatic with increased weakness, increased dyspnea and slight tachycardia and was therefore transfused 2 units PRBCs. - Repeat on 02/06 with Hgb 8.6/Hct 24.3 - Pt is symptomatically improving. - His H/H decreased back down to Hgb 7.9/Hct 22.3 and pt was given another 2 units PRBCs given on 02/07 - Repeat labs on 02/08 with hgb 10.7/hct 30.5 - Pt will need to followup with Dr. Santos upon discharge. - Pt may need Procrit as an outpt (2) Right arm pain ICD Codes: M79.601 - Pain in right arm Status: Acute Plan: - right wrist/forearm pain and swelling felt related to old iv site cellulitis. ?tenosynovitis - RUE US was negative for DVT - Radius/Ulna Xray of RUE --> No acute bony abnormality. Advanced arthropathy of the wrist joint. - Pt with mild erythema of the dorsal aspect of the hand with painful passive movement. - Shoulder Xray (02/06) --> Degenerative changes involving the right glenohumeral and acromioclavicular joints. No acute fracture or dislocation - Pt was started on IV Clindamycin, started on 02/06 - Pt was given a few doses of Naprosyn with some improvement as well - Soft tissue u/s (02/08) --> suspected complex fluid around the tendon in the right wrist region likely related to a ganglion and/or focal tendinitis. A hematoma could have similar appearance in the correct clinical setting. - Discussed the case with Dr. 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 He did not feel that any surgical procedure is warranted at this time. He stated that should the pt continue to have issues while at rehab that he would evaluate the pt at the SNF. - Pt has had much improved and pt is able to actively open his right hand/ fingers slowly but has limited flexion/extension of the wrist and with some pain but this is improving. - We will continue the Clindamycin 300mg TID x 7 more days. 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 He has not had f/u yet with Dr. Santos regarding these results - Spoke with Dr. Santos on 3/22 and recommended providing pt with blood transfusions PRN and f/u in the office for PRN Procrit and PRBCs PRN (4) Hypertension ICD Codes: I10 - Essential (primary) hypertension Status: Chronic Plan: - Fair control. - Pt does not take any antihypertensives as an outpt. 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 - Pt was seen by NSG at that time and pt recommended conservative management with TLSO brace and PT at SNF. - PT eval ordered. - Pt likely return to rehab at d/c. Assessment and Plan Patient examined. Assessment and plan formulated with Jeni Calderon PA-C. I agree with the above. right forearm and hand swelling markedly improved. on admission very tender/swollen and red with resistance to any mvmt. felt to be most like related to iv stick in hand/wrist area. u/s the right wrist shows some type of fluid collection near tendon so we are asking hand surgery to evaluate before d/c back to snf also he seems to have cogwheel rigidity of the rue and flexion of the right hand. Problem Qualifiers (1) Hypertension: Qualified Codes: I10 - Essential (primary) hypertension Jeni Calderon Feb 09, 2018 11:17 Gregory Robles MD Feb 09, 2018 13:17
[2018-02-09] MEDS ORDERED: CLIN300C5 PO (11:31)
[2018-02-09 12:00] VITALS: BP 128/60; PULSE 94; RESP 16; TEMP 98.6; O2SAT 93
[2018-02-09] MEDS: ACETAMINOPHEN/HYDROcodone 325 MG/5 MG TAB PO PRN ×2 (12:35→18:16)
--- NOTE | 2018-02-09 15:22 | HHI.DCPOC ---
Discharge Care Plan Diagnosis: (1) Cellulitis (2) Symptomatic anemia (3) MDS (myelodysplastic syndrome) (4) T12 compression fracture (5) Hypertension Goals to Promote Your Health * To prevent worsening of your condition and complications * To maintain your health at the optimal level Directions to Meet Your Goals Take your medications as prescribed Follow your dietary instruction Follow activity as directed Keep your appointments as scheduled Take your immunizations and boosters as scheduled If your symptoms worsen call your PCP, if no PCP go to Urgent Care Center or Emergency Room Smoking is Dangerous to Your Health. Avoid second hand smoke Call the 24-hour hour crisis hotline for domestic abuse at Jeni Calderon Feb 09, 2018 15:22
[2018-02-09] MEDS ORDERED: HYDR-3516 PO (15:24)
[2018-02-09 16:00] VITALS: BP 115/79; PULSE 86; RESP 16; TEMP 98.5; O2SAT 95
== END 2018-02-09 19:06 ==
LOC: NEPC 16:45 → INTOOBSV 23:11 → NEDA 23:11 → N06A 02-06 03:25
PROVIDERS: ADMIT Hospitalist; ATTEND Hospitalist
DX: L03.113 Cellulitis of right upper limb (principal); D46.9 Myelodysplastic syndrome, unspecified; D53.9 Nutritional anemia, unspecified; R41.82 Altered mental status, unspecified; R00.0 Tachycardia, unspecified; R94.31 Abnormal electrocardiogram [ECG] [EKG]; R06.02 Shortness of breath; R05 Cough; I10 Essential (primary) hypertension; E78.00 Pure hypercholesterolemia, unspecified; E11.9 Type 2 diabetes mellitus without complications; S22.080D Wedge compression fracture of T11-T12 vertebra, subsequent encounter for fracture with routine healing; D75.89 Other specified diseases of blood and blood-forming organs; K21.9 Gastro-esophageal reflux disease without esophagitis; N40.0 Benign prostatic hyperplasia without lower urinary tract symptoms; M12.831 Other specific arthropathies, not elsewhere classified, right wrist; X58.XXXD Exposure to other specified factors, subsequent encounter
CPT/HCPCS: 36430; 70450; 71045; 71275; 73030; 73090; 76999; 80048; 80053; 83605; 83735; 83880; 84484; 85007; 85025; 85027; 86850; 86900; 86901; 86920; 87040; 93005; 93971; 96361; 96365; 96366; 96375; 96376; 97110; 97116; 97162; 99285; G0378; J1940; J7050; P9016; Q9967; 96360

== ENCOUNTER 2018-02-24 22:45 | Emergency (ER) | payer MEDICARE ==
[~2018-02-24 22:45] MED LIST changes: +CLIN300C5 PO; -FLAX10002 PO; -SOUR1000
[2018-02-24 22:58] VITALS: PULSE 87; RESP 20; TEMP 99.3; O2SAT 94
[2018-02-24] MEDS ORDERED: FERR325T18 PO (23:05)
[2018-02-24 23:37] LABS: HEMATOCRIT 23.4 % (39.0-51.0); HEMOGLOBIN 7.9 GM/DL (13.0-17.0); MEAN CELL VOLUME 101.9 FL (80.0-100.0); MEAN CORPUSCULAR HEMOGLOBIN 34.5 PG (27.0-34.0); MEAN CORPUSCULAR HGB CONC 33.9 % (32.0-36.0); MEAN PLATELET VOLUME 7.7 FL (7.0-11.0); PLATELET COUNT 119 TH/MM3 (150-450); RED BLOOD COUNT 2.29 MIL/MM3 (4.50-5.90); RED CELL DISTRIBUTION WIDTH 21.8 % (11.6-17.2); WHITE BLOOD COUNT 6.4 TH/MM3 (4.0-11.0)
[2018-02-24 23:51] LABS: INTERNATIONAL NORMALIZED RATIO 1.2 RATIO; PROTHROMBIN TIME - PATIENT 12.1 SEC (9.8-11.6)
[2018-02-25] VITALS (10 sets, daily range): BP systolic 108–126; BP diastolic 55–60; PULSE 76–90; RESP 16–20; TEMP 98.8–99.8; O2SAT 92–98
[2018-02-25] LABS: ALBUMIN 2.2 GM/DL (3.4-5.0); AST (GOT) 19 U/L (15-37); BICARBONATE 33.2 MEQ/L (21.0-32.0); BLOOD UREA NITROGEN 14 MG/DL (7-18); CALCIUM 8.5 MG/DL (8.5-10.1); CHLORIDE 99 MEQ/L (98-107); CREATININE 0.68 MG/DL (0.60-1.30); GLOMERULAR FILTRATION RATE 110 ML/MIN (>89); GLUCOSE,RANDOM 131 MG/DL (74-106); SODIUM (NA) 136 MEQ/L (136-145)
[2018-02-25 00:01] LABS: ALT (GPT) 17 U/L (12-78)
[2018-02-25 00:03] LABS: ALKALINE PHOSPHATASE 83 U/L (45-117); TOTAL BILIRUBIN ADULT 0.8 MG/DL (0.2-1.0); TOTAL PROTEIN 7.4 GM/DL (6.4-8.2)
[2018-02-25 00:14] LABS: BLASTS 1 % (0-0); LYMPHOCYTES 8 % (9-44); MONOCYTES 25 % (0-8); NEUTROPHIL # MANUAL DIFF 4.2 TH/MM3 (1.8-7.7); POLYS (SEG NEUTROPHILS) 65 % (16-70)
[2018-02-25 00:20] LABS: DOHLE BODIES PRESENT (NONE SEEN)
[2018-02-25] MEDS ORDERED: SODIUM CHLOR 0.9% 250 ML INJ 250 ML IV ONE (01:00)
--- NOTE | 2018-02-25 06:55 | PD ---
HPI Chief Complaint: Abnormal Results Time Seen by Provider: 22:58 Travel History International Travel<30 days: No Contact w/Intl Traveler<30days: No Traveled to known affect area: No History of Present Illness HPI Patient is an 87-year-old male who is sent in from the alf due to abnormal labs. He has a myelodysplastic syndrome and has required transfusions in the past. He has no complaints at this time. Labs sent from the alf show a hemoglobin of 7.3. He denies any weakness, chest pain, shortness of breath. Severity is mild. PFSH Past Medical History Arthritis: Yes Autoimmune Disease: Yes Blood Disorders: No Anxiety: No Depression: No Heart Rhythm Problems: No Cancer: No Cardiovascular Problems: Yes High Cholesterol: Yes Chemotherapy: No Chest Pain: No Congestive Heart Failure: No Diabetes: No Diminished Hearing: No Endocrine: No Gastrointestinal Disorders: Yes GERD: Yes Glaucoma: No Genitourinary: Yes Hepatitis: No Hiatal Hernia: No Hypertension: Yes Immune Disorder: No Kidney Stones: No Musculoskeletal: Yes (sciatia) Neurologic: No Psychiatric: No Reproductive: No Respiratory: No Myocardial Infarction: No Radiation Therapy: No Renal Failure: No Sickle Cell Disease: No Thyroid Disease: No Ulcer: Yes Tetanus Vaccination: < 5 Years Influenza Vaccination: Yes Past Surgical History Abdominal Surgery: Yes AICD: No Appendectomy: Yes Arteriovenous Shunt: No Cardiac Surgery: No Cholecystectomy: Yes Ear Surgery: No Endocrine Surgery: No Eye Surgery: Yes (BILAT CATARACT REMOVAL 2017) Genitourinary Surgery: No Gynecologic Surgery: No Insulin Pump: No Joint Replacement: No Oral Surgery: No Pacemaker: No Thoracic Surgery: No Other Surgery: Yes (x 30 yrs ago appendectomy, cholecystectomy, lumbar surgery x 47yrs ago) Social History Alcohol Use: No Tobacco Use: No Substance Use: No Allergies-Medications (Allergen,Severity, Reaction): Coded Allergies: amoxicillin (Verified Allergy, Intermediate, rash, 02/24/18) Penicillins (Verified Allergy, Unknown, 02/24/18) Reported Meds & Prescriptions Reported Meds & Active Scripts Active Hydrocodone-Acetamin 5-325 mg (Hydrocodone/Acetaminophen) 5 Mg-325 Mg Tablet 1 Tab PO Q4HR PRN Reported Ferrous Sulfate 325 Mg (65 Mg Iron) Tablet 325 Mg PO DAILY Vitamin D-1000 (Cholecalciferol) 1,000 Unit Tab 2,000 Units PO DAILY Multi Vitamin Daily (Multiple Vitamin) 1 Tab Tab 1 Tab PO DAILY Magnesium Citrate 100 Mg Tab 250 Mg PO DAILY PRN Geary-3 Fish Oil/Vitamin (Fish Oil-Cholecalciferol) 1,000-1,000 Mg Cap 1 Cap PO DAILY Terazosin (Terazosin HCl) 5 Mg Cap 5 Mg PO BID Review of Systems Except as stated in HPI: all other systems reviewed are Neg General / Constitutional: No: Fever, Chills HENT: No: Headaches, Lightheadedness Cardiovascular: No: Chest Pain or Discomfort Respiratory: No: Shortness of Breath Gastrointestinal: No: Nausea, Vomiting Musculoskeletal: No: Arthralgias Skin: No Rash, No Change in Pigmentation Neurologic: No: Weakness, Dizziness Physical Exam Narrative GENERAL: Awake and alert, no acute distress. SKIN: Focused skin assessment warm/dry. No wounds or signs of infection. HEAD: Atraumatic. Normocephalic. EYES: Pupils equal and round. No scleral icterus. ENT: Mucous membranes pink and moist. NECK: Trachea midline. No JVD. CARDIOVASCULAR: Regular rate and rhythm. No murmur appreciated. RESPIRATORY: No accessory muscle use. Clear to auscultation. Breath sounds equal bilaterally. GASTROINTESTINAL: Abdomen soft, non-tender, nondistended. MUSCULOSKELETAL: No obvious deformities. No clubbing. No cyanosis. No edema. NEUROLOGICAL: Awake and alert. No obvious cranial nerve deficits. Motor grossly within normal limits. Normal speech. PSYCHIATRIC: Appropriate mood and affect; insight and judgment normal. Data Data Last Documented VS Vital Signs Date Time Temp Pulse Resp B/P (MAP) Pulse Ox O2 Delivery O2 Flow Rate FiO2 02/25/18 09:50 02/25/18 07:00 77 18 92 Room Air 02/25/18 06:30 99.1 02/25/18 05:00 2.00 Orders Orders Iv Access Insert/Monitor (02/24/18 23:13) Complete Blood Count With Diff (02/24/18 23:13) Comprehensive Metabolic Panel (02/24/18 23:13) Act Partial Throm Time (Ptt) (02/24/18 23:13) Prothrombin Time / Inr (Pt) (02/24/18 23:13) Type And Screen (02/24/18 23:13) Red Blood Cells (Rbc) (02/25/18 00:50) Blood Product Administration (02/25/18 00:50) Sodium Chlor 0.9% 250 Ml Inj (Ns 250 Ml (02/25/18 01:00) Complete Blood Count With Diff (02/25/18 06:39) Electrocardiogram (02/24/18 22:59) Ed Discharge Order (02/25/18 07:49) Labs Laboratory Tests Test 02/24/18 23:16 02/25/18 06:46 White Blood Count 6.4 TH/MM3 6.9 TH/MM3 Red Blood Count 2.29 MIL/MM3 2.75 MIL/MM3 Hemoglobin 7.9 GM/DL 9.0 GM/DL Hematocrit 23.4 % 26.0 % Mean Corpuscular Volume 101.9 FL 94.7 FL Mean Corpuscular Hemoglobin 34.5 PG 32.8 PG Mean Corpuscular Hemoglobin Concent 33.9 % 34.6 % Red Cell Distribution Width 21.8 % 27.9 % Platelet Count 119 TH/MM3 106 TH/MM3 Mean Platelet Volume 7.7 FL 7.4 FL CBC Comment AUTO DIFF AUTO DIFF Differential Total Cells Counted 100 100 Neutrophils % (Manual) 65 % 83 % Lymphocytes % 8 % 10 % Monocytes % 25 % 3 % Eosinophils % 1 % Neutrophils # (Manual) 4.2 TH/MM3 6.0 TH/MM3 Differential Comment FINAL DIFF MANUAL FINAL DIFF MANUAL Blastocytes 1 % Dohle Bodies PRESENT Platelet Estimate LOW LOW Platelet Morphology Comment NORMAL NORMAL Prothrombin Time 12.1 SEC Prothromb Time International Ratio 1.2 RATIO Activated Partial Thromboplast Time 28.6 SEC Blood Urea Nitrogen 14 MG/DL Creatinine 0.68 MG/DL Random Glucose 131 MG/DL Total Protein 7.4 GM/DL Albumin 2.2 GM/DL Calcium Level 8.5 MG/DL Alkaline Phosphatase 83 U/L Aspartate Amino Transf (AST/SGOT) 19 U/L Alanine Aminotransferase (ALT/SGPT) 17 U/L Total Bilirubin 0.8 MG/DL Sodium Level 136 MEQ/L Potassium Level 3.6 MEQ/L Chloride Level 99 MEQ/L Carbon Dioxide Level 33.2 MEQ/L Anion Gap 4 MEQ/L Estimat Glomerular Filtration Rate 110 ML/MIN Band Neutrophils % 4 % Ovalocytes 1+ Omar Cells 1+ Keratocytes OCC MDM Medical Decision Making Medical Screen Exam Complete: Yes Emergency Medical Condition: Yes Medical Record Reviewed: Yes Differential Diagnosis Anemia versus electrolyte abnormality versus dehydration Narrative Course Patient is an 87-year-old male who comes in due to abnormal labs. He has no complaints at this time. IV established, labs sent. Labs do show a hemoglobin of 7.8. Patient transfused 2 units of blood. Repeat CBCs shows appropriate response of his hemoglobin. He will be discharged back to the alf to follow-up with hematology. Advised return as needed for any worsening symptoms. Diagnosis Primary Impression: Anemia Qualified Codes: D64.89 - Other specified anemias Patient Instructions: Anemia (ED), General Instructions Additional Instructions: Follow-up with hematology. Return to the ED as needed for any worsening symptoms. Disposition: 03 DISCHARGE TO SNF Condition: Stable Shahnaz Ernst MD Feb 25, 2018 06:55
[2018-02-25 07:25] LABS: MEAN CELL VOLUME 94.7 FL (80.0-100.0); MEAN CORPUSCULAR HEMOGLOBIN 32.8 PG (27.0-34.0); MEAN CORPUSCULAR HGB CONC 34.6 % (32.0-36.0); MEAN PLATELET VOLUME 7.4 FL (7.0-11.0); PLATELET COUNT 106 TH/MM3 (150-450); RED BLOOD COUNT 2.75 MIL/MM3 (4.50-5.90); RED CELL DISTRIBUTION WIDTH 27.9 % (11.6-17.2); WHITE BLOOD COUNT 6.9 TH/MM3 (4.0-11.0)
--- NOTE | 2018-02-25 08:05 | EKG ---
Date Performed: 02/24/2018 Time Performed: 22:59:58 PTAGE: 87 years EKG: Sinus rhythm MINIMAL ST DEPRESSION BORDERLINE ECG No significant change from prior electrocardiogram. PREVIOUS TRACING : 02/05/2018 17.30 DOCTOR: Jose D Terry Interpretating Date/Time 02/25/2018 08:03:11
[2018-02-25 08:12] LABS: BANDS 4 % (0-6); LYMPHOCYTES 10 % (9-44); MONOCYTES 3 % (0-8); POLYS (SEG NEUTROPHILS) 83 % (16-70)
[2018-02-25 08:13] LABS: BURR CELLS 1+ (NORMAL); KERATOCYTES OCC (NORMAL); OVALOCYTES 1+ (NORMAL)
== END 2018-02-25 10:05 ==
LOC: NEPE 22:45
DX: D46.9 Myelodysplastic syndrome, unspecified (principal); I10 Essential (primary) hypertension
CPT/HCPCS: 36430; 80053; 85007; 85027; 85610; 85730; 86850; 86900; 86901; 86920; 93005; 96360; 96361; 99284; J7050; P9016

== ENCOUNTER 2018-07-22 10:11 | Inpatient (IN) ==
[2018-07-22 11:14] LABS: Baso % (Auto) 0.5 % (0.0-2.0); Eos % (Auto) 0.7 % (0.0-4.0); Hemoglobin 7.2 gm/dL (13.0-17.0); Lymph # (Auto) 0.6 th/mm3 (1.0-4.8); Mean Corpuscular HGB Conc 35.1 % (32.0-36.0); Mean Corpuscular Hemoglobin 38.9 pg (27.0-34.0); Mean Corpuscular Volume 110.7 fL (80.0-100.0); Mean Platelet Volume 7.5 fL (7.0-11.0); Mono # (Auto) 0.6 th/mm3 (0.0-0.9); Mono % (Auto) 16.7 % (0.0-8.0); Neut # (Auto) 2.6 th/mm3 (1.8-7.7); Neut % (Auto) 65.1 % (16.0-70.0); Platelet Count 78 th/mm3 (150-450); Red Blood Count 1.86 mil/mm3 (4.50-5.90); Red Cell Distribution Width 26.5 % (11.6-17.2); White Blood Count 3.8 th/mm3 (4.0-11.0)
[2018-07-22 11:25] LABS: Hematocrit 20.5 % (39.0-51.0)
--- NOTE | 2018-07-22 11:26 | XR ---
EXAM DATE: 07/22/2018 11:23 AM EDT AGE/SEX: 88 years / Male INDICATIONS: . Syncope, weakness. CLINICAL DATA: This is the patient's initial encounter. Patient reports that signs and symptoms have been present for 2 days and indicates a pain score of 0/10. MEDICAL/SURGICAL HISTORY: . BPH. Parkinsons . Appendectomy. Cholecystectomy. COMPARISON: [facility], CHEST 1V SINGLE AP, 06/03/2018. . FINDINGS: PA and lateral views of the chest demonstrate minimal bibasilar densities. Cardiomegaly. No pleural e ffusions.. The cardiomediastinal contours are unremarkable. Osseous structures are intact. CONCLUSION: Minimal bibasilar densities likely atelectasis. Cardiomegaly. Electronically signed by: Duncan Godoy MD 07/22/2018 11:25 AM EDT
[2018-07-22 11:27] LABS: Activated Partial Thrombo Time 27.4 sec (24.3-30.1); Chloride 103 meq/L (98-107); INR 1.2 Ratio; Potassium 3.6 meq/L (3.5-5.1); Prothrombin Time 12.3 sec (9.8-11.6); Sodium 140 meq/L (136-145)
[2018-07-22 11:34] LABS: Bilirubin,Urine Negative (Negative); Clarity,Urine Slightly Cloudy (Clear); Color,Urine Yellow (Yellw/Straw); Glucose,Urine (UA) Negative (Negative); Leukocyte Esterase,Urine Negative (Negative); Nitrite,Urine Negative (Negative); PH,Urine 5.5 (5.0-8.5); Specific Gravity,Urine 1.025 (1.002-1.035); Urobilinogen,Urine 0.2 mg/dL (Less than 2)
[2018-07-22 11:34] LABS: Calcium 8.1 mg/dL (8.5-10.1)
[2018-07-22 11:35] LABS: Albumin 2.5 g/dL (3.4-5.0); Anion Gap 7 meq/L (5-15); Blood Urea Nitrogen 15 mg/dL (7-18); Carbon Dioxide 29.9 meq/L (21.0-32.0); Glucose,Random 123 mg/dL (74-106); Magnesium 2.1 mg/dL (1.5-2.5)
[2018-07-22 11:36] LABS: Collection Time,Urine 1105 hours
[2018-07-22 11:37] LABS: Alanine Aminotransferase 14 U/L (12-78); Aspartate Aminotransferase 13 U/L (15-37)
[2018-07-22 11:38] LABS: Glomerular Filtration Rate Greater Than 89 mL/min (>89); Total Protein 6.9 g/dL (6.4-8.2)
[2018-07-22 11:39] LABS: Amorphous Sediment,Urine Moderate /hpf; RBC,Urine 0-3 /hpf (0-3); Squamous Epithelial Cell,Urine 0-5 /hpf (0-5); WBC,Urine 0-5 /hpf (0-5)
[2018-07-22 11:40] LABS: Alkaline Phosphatase 81 U/L (45-117)
--- NOTE | 2018-07-22 11:43 | ED ---
HPI General Chief complaint: Extremity Injury, Lower Stated complaint: Evac/Weakness Time Seen by Provider: 07/22/18 10:53 Source: patient and EMS Mode of arrival: EMS Limitations: no limitations History of Present Illness HPI narrative: 88-year-old male patient presents to the ER today brought in by EMS because he has not been feeling well over several days, generally weak, and fell today. He is not exactly sure how he fell. He is not sure whether he hit his head or not. States that he has had intermittent chest discomfort that he has noticed over the last few days as well but no current chest pain now. He denies any shortness of breath, abdominal pains, or other issues. Related Data Home Medications Medication Instructions Recorded Confirmed escitalopram oxalate 5 mg PO DAILY 06/03/18 07/22/18 terazosin 5 mg PO BID 06/03/18 07/22/18 magnesium 500 mg PO DAILY 07/22/18 07/22/18 ropinirole 1 mg PO TID 07/22/18 07/22/18 Allergies Allergy/AdvReac Type Severity Reaction Status Date / Time amoxicillin Allergy Intermediate rash Verified 07/22/18 10:17 Penicillins Allergy Unknown none Verified 07/22/18 10:17 Review of Systems ROS: all other systems reviewed are negative [facility] Medical History Medical History Anemia (Acute) BPH (benign prostatic hyperplasia) (Acute) Compression fracture (Acute) Disc degeneration (Acute) Lower back pain (Acute) MDS (myelodysplastic syndrome) (Acute) Parkinson disease (Acute) Surgical History Surgical History Hx of appendectomy (Acute) Hx of cholecystectomy (Acute) Social History Social History Substance History: No History of Abuse Second Hand Smoke Exposure: No Smoking Status: Never smoker How Often Do You Have a Drink Containing Alcohol: Never Recent Out of Country Travel within the Last 8 Weeks: No Immunization History Tetanus Immunization: Unsure Hx Influenza Vaccine This Season: Yes Exam Narrative Exam Narrative: GENERAL: Well-developed elderly white male patient currently and moderate distress. Awake, alert, answering questions appropriately. Mildly disoriented. SKIN: Focused skin assessment warm/dry. HEAD: Atraumatic. Normocephalic. EYES: Pupils equal and round. No scleral icterus. No injection or drainage. ENT: No nasal bleeding or discharge. Mucous membranes pink and moist. NECK: Trachea midline. No JVD. No midline C-spine tenderness. CARDIOVASCULAR: Regular rate and rhythm. No murmur appreciated. RESPIRATORY: No accessory muscle use. Clear to auscultation. Breath sounds equal bilaterally. GASTROINTESTINAL: Abdomen soft, non-tender, nondistended. Hepatic and splenic margins not palpable. RECTAL EXAM: No masses or tenderness, I am not able to get much of a sample, Hemoccult negative. EXTREMITIES: No clubbing, cyanosis, or edema. No joint tenderness, effusion. Trace pitting edema of the legs. MUSCULOSKELETAL: No obvious deformities. No clubbing. No cyanosis. Pelvis nontender to palpation. NEUROLOGICAL: Awake and alert. No obvious cranial nerve deficits. Motor grossly within normal limits. Normal speech. PSYCHIATRIC: Appropriate mood and affect; insight and judgment normal. Procedures Hemaprompt Stool Procedural Steps Taken: specimen placed in appropriate test area, developer placed on specimen and control areas and controls appropriately positive and negative Hemaprompt Stool Result: negative Course Initial Documented Vital Signs Temperature 98.2 F 07/22/18 10:13 Pulse Rate 88 07/22/18 10:13 Respiratory Rate 18 07/22/18 10:13 Blood Pressure 131/60 07/22/18 10:13 Pulse Oximetry 91 L 07/22/18 10:13 Last Documented Vital Signs Temperature 98.2 F 07/22/18 10:13 Pulse Rate 83 07/22/18 10:17 Respiratory Rate 18 07/22/18 10:17 Blood Pressure 136/69 07/22/18 10:17 Pulse Oximetry 97 07/22/18 11:05 Medical Decision Making [facility] Narrative Medical decision making narrative: Lab work shows significant anemia which appears to be somewhat chronic for this patient but he appears to be fairly symptomatic. My plan would be to transfuse him 2 units of PRBCs. EKG did not show significant dysrhythmias. Lab work was fairly unremarkable otherwise and his CAT scans were unremarkable as well. X-ray did not show any obvious fractures. At this point, it seems that he is symptomatic from this anemia and my would be to admit him for further observation and treatment with PRBCs. Case is discussed with Dr. Craig for admission. Medical Screen Exam Complete: Yes Emergency Medical Condition: Yes Differential Diagnosis Differential Diagnosis: Dehydration versus electrolyte abnormalities versus sepsis versus anemia versus intracranial injuries versus fractures Lab Data Lab results reviewed: Yes I reviewed the patient's lab results. Result diagrams: 07/22/18 10:40 07/22/18 10:40 Lab Results 07/22/18 07/22/18 07/22/18 Range/Units 10:40 10:40 10:40 CBC w Diff Slide review pending WBC 3.8 L (4.0-11.0) th/mm3 RBC 1.86 L (4.50-5.90) mil/mm3 Hgb 7.2 L (13.0-17.0) gm/dL Hct 20.5 L* (39.0-51.0) % MCV 110.7 H (80.0-100.0) fL MCH 38.9 H (27.0-34.0) pg MCHC 35.1 (32.0-36.0) % RDW 26.5 H (11.6-17.2) % Plt Count 78 L (150-450) th/mm3 MPV 7.5 (7.0-11.0) fL Neut % (Auto) 65.1 (16.0-70.0) % Lymph % (Auto) 17.0 (9.0-44.0) % [place] % (Auto) 16.7 H (0.0-8.0) % Eos % (Auto) 0.7 (0.0-4.0) % Baso % (Auto) 0.5 (0.0-2.0) % Neut # (Auto) 2.6 (1.8-7.7) th/mm3 Lymph # (Auto) 0.6 L (1.0-4.8) th/mm3 [place] # (Auto) 0.6 (0.0-0.9) th/mm3 Eos # (Auto) 0.0 (0.0-0.4) th/mm3 Baso # (Auto) 0.0 (0.0-0.2) th/mm3 WBC Differential . Diff Scan Auto diff confirmed Differential Comment . Platelet Estimate Low L (Normal) Platelet Morphology Normal (Normal) Ovalocytes 1+ H (None) PT 12.3 H (9.8-11.6) sec INR 1.2 Ratio APTT 27.4 (24.3-30.1) sec Sodium 140 (136-145) meq/L Potassium 3.6 (3.5-5.1) meq/L Chloride 103 (98-107) meq/L Carbon Dioxide 29.9 (21.0-32.0) meq/L Anion Gap 7 (5-15) meq/L BUN 15 (7-18) mg/dL Creatinine 0.53 L (0.60-1.30) mg/dL Estimated GFR Greater than 89 (>89) mL/min Random Glucose 123 H (74-106) mg/dL Calcium 8.1 L (8.5-10.1) mg/dL Magnesium 2.1 (1.5-2.5) mg/dL Total Bilirubin 0.6 (0.2-1.0) mg/dL AST 13 L (15-37) U/L ALT 14 (12-78) U/L Alkaline Phosphatase 81 (45-117) U/L Troponin I Less than 0.02 L (0.02-0.05) ng/mL Total Protein 6.9 D (6.4-8.2) g/dL Albumin 2.5 L (3.4-5.0) g/dL Ur Collection Type Urine Color (Yellw/Straw) Urine Clarity (Clear) Urine pH (5.0-8.5) Ur Specific Quinn (1.002-1.035) Urine Protein (Neg-Trace) mg/dL Urine Glucose (UA) (Negative) mg/dL Urine Ketones (Negative) mg/dL Urine Occult Blood (Negative) Urine Nitrate (Negative) Urine Bilirubin (Negative) Urine Urobilinogen (Less than 2) mg/dL Ur Leukocyte Esterase (Negative) Urine RBC (0-3) /hpf Urine WBC (0-5) /hpf Ur Squamous Epith Cells (0-5) /hpf Ur Transition Epith Cell (None) /hpf Amorphous Sediment (None) /hpf Fine Granular Casts (None) /lpf Micro UA Comment Ur Microscopic Review Urine Culture Comments Urine Collection Time hours Crossmatch 07/22/18 07/22/18 Range/Units 11:05 12:00 CBC w Diff WBC (4.0-11.0) th/mm3 RBC (4.50-5.90) mil/mm3 Hgb (13.0-17.0) gm/dL Hct (39.0-51.0) % MCV (80.0-100.0) fL MCH (27.0-34.0) pg MCHC (32.0-36.0) % RDW (11.6-17.2) % Plt Count (150-450) th/mm3 MPV (7.0-11.0) fL Neut % (Auto) (16.0-70.0) % Lymph % (Auto) (9.0-44.0) % [place] % (Auto) (0.0-8.0) % Eos % (Auto) (0.0-4.0) % Baso % (Auto) (0.0-2.0) % Neut # (Auto) (1.8-7.7) th/mm3 Lymph # (Auto) (1.0-4.8) th/mm3 [place] # (Auto) (0.0-0.9) th/mm3 Eos # (Auto) (0.0-0.4) th/mm3 Baso # (Auto) (0.0-0.2) th/mm3 WBC Differential Diff Scan Differential Comment Platelet Estimate (Normal) Platelet Morphology (Normal) Ovalocytes (None) PT (9.8-11.6) sec INR Ratio APTT (24.3-30.1) sec Sodium (136-145) meq/L Potassium (3.5-5.1) meq/L Chloride (98-107) meq/L Carbon Dioxide (21.0-32.0) meq/L Anion Gap (5-15) meq/L BUN (7-18) mg/dL Creatinine (0.60-1.30) mg/dL Estimated GFR (>89) mL/min Random Glucose (74-106) mg/dL Calcium (8.5-10.1) mg/dL Magnesium (1.5-2.5) mg/dL Total Bilirubin (0.2-1.0) mg/dL AST (15-37) U/L ALT (12-78) U/L Alkaline Phosphatase (45-117) U/L Troponin I (0.02-0.05) ng/mL Total Protein (6.4-8.2) g/dL Albumin (3.4-5.0) g/dL Ur Collection Type Cath Urine Color Yellow (Yellw/Straw) Urine Clarity Slightly cloudy (Clear) Urine pH 5.5 (5.0-8.5) Ur Specific Quinn 1.025 (1.002-1.035) Urine Protein Trace (Neg-Trace) mg/dL Urine Glucose (UA) Negative (Negative) mg/dL Urine Ketones 80 or greater H (Negative) mg/dL Urine Occult Blood Negative (Negative) Urine Nitrate Negative (Negative) Urine Bilirubin Negative (Negative) Urine Urobilinogen 0.2 (Less than 2) mg/dL Ur Leukocyte Esterase Negative (Negative) Urine RBC 0-3 (0-3) /hpf Urine WBC 0-5 (0-5) /hpf Ur Squamous Epith Cells 0-5 (0-5) /hpf Ur Transition Epith Cell 1-5 H (None) /hpf Amorphous Sediment Moderate H (None) /hpf Fine Granular Casts 1-3 H (None) /lpf Micro UA Comment Cath-culture not ind Ur Microscopic Review Microscopic reviewed Urine Culture Comments Cath-cult not ind Urine Collection Time 1105 hours Crossmatch See Detail Imaging Data Attestation: I personally reviewed and interpreted this imaging study as follows : Radiologist's impression: Cervical Spine CT 07/22/18 10:54 CONCLUSION: 1. Degenerative changes. 2. No fracture. Chest X-Ray 07/22/18 10:54 CONCLUSION: Minimal bibasilar densities likely atelectasis. Cardiomegaly. Head CT 07/22/18 10:54 CONCLUSION: 1. No acute intracranial abnormality. . Humerus X-Ray 07/22/18 11:54 CONCLUSION: Grossly unremarkable single view of the left humerus. ECG Data Attestation: I personally reviewed and interpreted this ECG as follows: Interpretation: EKG shows normal sinus rhythm at a rate of 87 bpm. No signs of acute ST elevations or depressions. Discharge Plan Discharge Disposition Patient Disposition: 30 Still Patient Discharge Condition Condition: Stable Discharge Details Anticipated Discharge Date: 07/22/18 Diagnosis: Anemia, Fall Physicians Team ED Provider: Cirilo Kimbrough Primary Care Provider: Marvel Smith Attending Provider: Raphael Craig Discharge Interventions Interventions: Vital Signs Last Done: 07/22/18 10:17 Status ED Status: Admitted Observation Patient
--- NOTE | 2018-07-22 11:58 | CT ---
EXAM DATE: 07/22/2018 11:55 AM EDT AGE/SEX: 88 years / Male INDICATIONS: Fell last night at home. Posterior head and neck pain. CLINICAL DATA: This is the patient's initial encounter. Patient reports that signs and symptoms have been present for 2 days and indicates a pain score of 5/10. MEDICAL/SURGICAL HISTORY: Parkinson's disease. BPH. Compression fracture. Disc degeneration. MDS. Appendectomy. Cholecystectomy. RADIATION DOSE: 65.56 CTDI (mGy) COMPARISON: [facility] [place], CT BRAIN W/O CONTRAST, 02/05/2018. . TECHNIQUE: CT of the head without contrast. Using automated exposure control and adjustment of the mA and/or kV according to patient size, radiation dose was kept as low as reasonably achievable to ob tain optimal diagnostic quality images. DICOM format image data is available electronically for revi ew and comparison. FINDINGS: Cerebrum: The ventricles are normal for age. No evidence of midline shift, mass lesion, hemorrhage or acute infarction. No extraaxial fluid collections are seen. Posterior Fossa: The cerebellum and brainstem are intact. The 4th ventricle is midline. The cerebe llopontine angle is unremarkable. Extracranial: The visualized portion of the orbits is intact. Skull: The calvaria is intact. No evidence of skull fracture. CONCLUSION: 1. No acute intracranial abnormality. . Electronically signed by: Duncan Godoy MD 07/22/2018 11:57 AM EDT
[2018-07-22] MEDS ORDERED: Sodium Chlor 0.9% Inj 250 ML IV.SIG SCH (12:00)
--- NOTE | 2018-07-22 12:22 | CT ---
EXAM DATE: 07/22/2018 12:00 PM EDT AGE/SEX: 88 years / Male INDICATIONS: Fell last night at home. Posterior head and neck pain. CLINICAL DATA: This is the patient's initial encounter. Patient reports that signs and symptoms have been present for 2 days and indicates a pain score of 5/10. MEDICAL/SURGICAL HISTORY: Parkinson's disease. BPH. Compression fracture. Disc degeneration. MD Benjamin. Appendectomy. Cholecystectomy. RADIATION DOSE: 26.64 CTDI (mGy) COMPARISON: [facility], CT LUMBAR SPINE W CONTRAST, 01/25/2018. . TECHNIQUE: Contiguous axial images were obtained using helical multirow detector technique. The vol umetric data was post-processed with multiplanar reconstruction in oblique axial, sagittal, and coron al planes. Using automated exposure control and adjustment of the mA and/or kV according to patient s ize, radiation dose was kept as low as reasonably achievable to obtain optimal diagnostic quality maik ges. DICOM format image data is available electronically for review and comparison. FINDINGS: Vertebrae: Normal vertebral body height. No fracture. Alignment: Normal. No subluxation. C2-3: The bony spinal canal is normal in size. No evidence of disc bulge or herniation. The neural foramina are bilaterally patent. C3-4: Posterior disc osteophyte complex abuts the ventral thecal sac without canal stenosis. Bilater al neural foraminal narrowing. C4-5: Posterior disc osteophyte complex abuts the ventral thecal sac without canal stenosis. Bilatera l neural foraminal narrowing. C5-6: Posterior disc osteophyte complex abuts the ventral thecal sac without canal stenosis. Bilater al neural foraminal narrowing. C6-7: The bony spinal canal is normal in size. No evidence of disc bulge or herniation. The neural foramina are bilaterally patent. C7-T1: The bony spinal canal is normal in size. No evidence of disc bulge or herniation. The neura l foramina are bilaterally patent. CONCLUSION: 1. Degenerative changes. 2. No fracture. Electronically signed by: Duncan Godoy MD 07/22/2018 12:21 PM EDT
--- NOTE | 2018-07-22 12:25 | XR ---
EXAM DATE: 07/22/2018 12:19 PM EDT AGE/SEX: 88 years / Male INDICATIONS: Left humerus pain and limited mobility. No known injury. CLINICAL DATA: This is the patient's subsequent encounter. Patient reports that signs and symptoms h ave been present for 1 month and indicates a pain score of 4/10. MEDICAL/SURGICAL HISTORY: . BPH. Parkinson . Appendectomy. Cholecystectomy. None. COMPARISON: No prior exams available for comparison. FINDINGS: A single view of the left humerus was performed. The bony structures are grossly intact. No definite joint dislocation is demonstrated. The soft tissues are grossly unremarkable. CONCLUSION: Grossly unremarkable single view of the left humerus. Electronically signed by: Domo Dye MD 07/22/2018 12:23 PM EDT
[2018-07-22 12:35] LABS: Ovalocytes 1+
[2018-07-22 12:36] LABS: Platelet Morphology Normal (Normal)
[2018-07-22] MEDS: Acetaminophen 325 MG Tablet PO PRN (14:26)
--- NOTE | 2018-07-22 14:55 | P.HP ---
History of Present Illness Service: [facility] hospitalist service: Dr. Kristopher Craig Primary Care Physician: Marvel Smith MD Chief Complaint: Increased weakness over the last 3 days and fell today History of Present Illness: 88-year-old white male who came to the emergency room with increasing weakness and generally not feeling well over the last several days. He fell today also. He uses a walker at home. He has Parkinson's disease but does not take any medication for this. 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 He is been having to receive blood transfusions more frequently and had a blood transfusion around mid June when his hemoglobin and drop down around 7.0 on 06-20-18. He sees a nurse private duty, . His hemoglobin was 7.2 in the ER and he is admitted for observation and blood transfusion. Has had seeing him on the floor the nurse who just checked his temperature mentions that he had a temperature of 101. He did not complain of any fever, chills, or sweats at home. No cold like symptoms. 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 Denies alcohol use. 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 He has had generalized weakness. He denied any fever but was noted just now by the nurse as having a temp of 101 degrees. HEENT: No sore throat, runny nose, earache. Cardiovascular: No chest pain, heart palpitations, shortness of breath, orthopnea. Pulmonary: No cough, shortness of breath, hemoptysis, pleuritic chest pain Gastrointestinal: No nausea, vomiting, abdominal pain, heartburn, indigestion, diarrhea, constipation, melena, rectal bleeding. : No dysuria, hematuria, urgency, incontinence. He gets up 2-3 times at night to urinate.. Musculoskeletal: He has had chronic neck and upper back pain for several months Psychiatry: He is stable with his depression Extremities: No edema Dermatology: No rash or itching Neuro: No headache, confusion, motor weakness, numbness or tingling. He has a tremor at rest and with movement of his arms. He walks with a walker PMF - History History Provided By: Patient - Medical History Medical History: Medical History (Last Reviewed 07/22/18 @ 11:42 by Cirilo Kimbrough MD) Anemia BPH (benign prostatic hyperplasia) Compression fracture Disc degeneration Lower back pain MDS (myelodysplastic syndrome) Parkinson disease - Surgical History Surgical History: Surgical History (Last Reviewed 07/22/18 @ 11:43 by Cirilo Kimbrough MD) Hx of appendectomy Hx of cholecystectomy - Tobacco History Second Hand Smoke Exposure: No Smoking Status: Never smoker - Alcohol History How Often Do You Have a Drink Containing Alcohol: Never - Substance Use History Substance History: No History of Abuse - Travel History Recent Travel Out of the Country Within the Last 8 Weeks: No - Immunization History Tetanus Immunization: Unsure Hx Influenza Vaccine This Season: Yes Medications and Allergies Active Medications: Active Medications Acetaminophen (Tylenol) 650 mg PO Q6H PRN PRN Reason: PAIN SCALE 1 TO 10 Escitalopram Oxalate (Lexapro) 5 mg PO DAILY [facility] Sodium Chloride (Ns Inj) 250 mls @ 15 mls/hr IV.SIG ONCE ISHA Stop: 07/23/18 04:39 Magnesium Oxide (Mag-Ox) 400 mg PO DAILY ISHA Ropinirole HCl (Requip) 1 mg PO TID ISHA Terazosin HCl (Hytrin) 5 mg PO BID ISHA Allergies Allergy/AdvReac Type Severity Reaction Status Date / Time amoxicillin Allergy Intermediate rash Verified 07/22/18 10:17 Penicillins Allergy Unknown none Verified 07/22/18 10:17 Home Medications Medication Instructions Recorded Confirmed Type escitalopram oxalate 5 mg PO DAILY 06/03/18 07/22/18 History terazosin 5 mg PO BID 06/03/18 07/22/18 History magnesium 500 mg PO DAILY 07/22/18 07/22/18 History ropinirole 1 mg PO TID 07/22/18 07/22/18 History Exam Vital signs: Vital Signs 07/22/18 10:13 07/22/18 10:17 07/22/18 11:05 Temperature 98.2 F Pulse Rate 88 83 Respiratory Rate 18 18 Blood Pressure 131/60 136/69 Pulse Oximetry 91 L 97 97 Intake & Output 07/21/18 07/22/18 07/22/18 18:59 06:59 18:59 Output Total 200 / 200 Balance -200 / -200 Weight 86 kg Output: Urine Amount (Catheter) 200 / 200 Straight 200 / 200 Other: Weight On Admission 86 kg Narrative: This is a pleasant elderly white male in no distress. HEENT: Pupils equal, EOMs intact, sclera nonicteric,lens implants both eyes, mouth without lesions, partial upper and lower dentures. TMs intact, nose without lesions Neck: No JVD, neck is supple, no carotid bruit Heart: Regular rate and rhythm without murmurs or gallops Lungs: Clear to auscultation Abdomen: Soft, nontender, no masses, no organomegaly Extremities: 1+ edema both ankles, pulses palpated, no calf tenderness Skin: Without lesions or rash Musculoskeletal: He has slight tenderness of his lower posterior neck of the soft tissue extending into his upper back. He has slight pain with movement of his neck. Neuro: Alert, oriented, normal motor exam, sensation intact, cranial nerves intact. He has resting tremor of both upper extremities and worsening tremor with use of his arms. Gait was not tested. Results - Labs CBC & Chem 7: 07/22/18 10:40 07/22/18 10:40 Labs: Laboratory Results - last 24 hr 07/22/18 07/22/18 07/22/18 10:40 10:40 10:40 CBC w Diff Slide review pending WBC 3.8 L RBC 1.86 L Hgb 7.2 L Hct 20.5 L* MCV 110.7 H MCH 38.9 H MCHC 35.1 RDW 26.5 H Plt Count 78 L MPV 7.5 Neut % (Auto) 65.1 Lymph % (Auto) 17.0 Greene % (Auto) 16.7 H Eos % (Auto) 0.7 Baso % (Auto) 0.5 Neut # (Auto) 2.6 Lymph # (Auto) 0.6 L Greene # (Auto) 0.6 Eos # (Auto) 0.0 Baso # (Auto) 0.0 WBC Differential . Diff Scan Auto diff confirmed Differential Comment . Platelet Estimate Low L Platelet Morphology Normal Ovalocytes 1+ H PT 12.3 H INR 1.2 APTT 27.4 Sodium 140 Potassium 3.6 Chloride 103 Carbon Dioxide 29.9 Anion Gap 7 BUN 15 Creatinine 0.53 L Estimated GFR Greater than 89 Random Glucose 123 H Calcium 8.1 L Magnesium 2.1 Total Bilirubin 0.6 AST 13 L ALT 14 Alkaline Phosphatase 81 Troponin I Less than 0.02 L Total Protein 6.9 D Albumin 2.5 L TSH Ur Collection Type Urine Color Urine Clarity Urine pH Ur Specific [place] Urine Protein Urine Glucose (UA) Urine Ketones Urine Occult Blood Urine Nitrate Urine Bilirubin Urine Urobilinogen Ur Leukocyte Esterase Urine RBC Urine WBC Ur Squamous Epith Cells Ur Transition Epith Cell Amorphous Sediment Fine Granular Casts Micro UA Comment Ur Microscopic Review Urine Culture Comments Urine Collection Time Crossmatch 07/22/18 07/22/18 07/22/18 10:40 11:05 12:00 CBC w Diff WBC RBC Hgb Hct MCV MCH MCHC RDW Plt Count MPV Neut % (Auto) Lymph % (Auto) Greene % (Auto) Eos % (Auto) Baso % (Auto) Neut # (Auto) Lymph # (Auto) Greene # (Auto) Eos # (Auto) Baso # (Auto) WBC Differential Diff Scan Differential Comment Platelet Estimate Platelet Morphology Ovalocytes PT INR APTT Sodium Potassium Chloride Carbon Dioxide Anion Gap BUN Creatinine Estimated GFR Random Glucose Calcium Magnesium Total Bilirubin AST ALT Alkaline Phosphatase Troponin I Total Protein Albumin TSH 2.390 Ur Collection Type Cath Urine Color Yellow Urine Clarity Slightly cloudy Urine pH 5.5 Ur Specific [place] 1.025 Urine Protein Trace Urine Glucose (UA) Negative Urine Ketones 80 or greater H Urine Occult Blood Negative Urine Nitrate Negative Urine Bilirubin Negative Urine Urobilinogen 0.2 Ur Leukocyte Esterase Negative Urine RBC 0-3 Urine WBC 0-5 Ur Squamous Epith Cells 0-5 Ur Transition Epith Cell 1-5 H Amorphous Sediment Moderate H Fine Granular Casts 1-3 H Micro UA Comment Cath-culture not ind Ur Microscopic Review Microscopic reviewed Urine Culture Comments Cath-cult not ind Urine Collection Time 1105 Crossmatch See Detail - Imaging Impressions Cervical Spine CT 07/22/18 10:54 CONCLUSION: 1. Degenerative changes. 2. No fracture. Chest X-Ray 07/22/18 10:54 CONCLUSION: Minimal bibasilar densities likely atelectasis. Cardiomegaly. Head CT 07/22/18 10:54 CONCLUSION: 1. No acute intracranial abnormality. . Humerus X-Ray 07/22/18 11:54 CONCLUSION: Grossly unremarkable single view of the left humerus. Caprini VTE Risk Assessment Caprini VTE Risk Assessment: Moderate/High Risk (score >= 2) Caprini Risk Assessment Model: Point Value = 1 Point Value = 2 Point Value = 3 Point Value = 5 Age 41-60 Minor surgery BMI > 25 kg/m2 Swollen legs Varicose veins or History of unexplained or recurrent spontaneous Oral contraceptives or hormone replacement Sepsis (< 1 month) Serious lung disease, including pneumonia (< 1 month) Abnormal pulmonary function Acute myocardial infarction Congestive heart failure (< 1 month) History of inflammatory bowel disease Medical patient at bed rest Age 61-74 Arthroscopic surgery Major open surgery (> 45 min) Laparoscopic surgery (> 45 min) Malignancy Confined to bed (> 72 hours) Immobilizing plaster cast Central venous access Age >= 75 History of VTE Family history of VTE Factor V Leiden Prothrombin [id number] Lupus anticoagulant Anticardiolipin antibodies Elevated serum homocysteine Heparin-induced thrombocytopenia Other congenital or acquired thrombophilia Stroke (< 1 month) Elective arthroplasty Hip, pelvis, or leg fracture Acute spinal cord injury (< 1 month) Prophylaxis Regimen: Total Risk Factor Score Risk Level Prophylaxis Regimen 0-1 Low Early ambulation 2 Moderate Order ONE of the following: *Sequential Compression Device (SCD) *Heparin 5000 units SQ BID 3-4 Higher Order ONE of the following medications: *Heparin 5000 units SQ TID *Enoxaparin/Lovenox 40 mg SQ daily (WT < 150 kg, CrCl > 30 mL/min) *Enoxaparin/Lovenox 30 mg SQ daily (WT < 150 kg, CrCl > 10-29 mL/min) *Enoxaparin/Lovenox 30 mg SQ BID (WT < 150 kg, CrCl > 30 mL/min) AND/OR *Sequential Compression Device (SCD) 5 or more Highest Order ONE of the following medications: *Heparin 5000 units SQ TID (Preferred with Epidurals) *Enoxaparin/Lovenox 40 mg SQ daily (WT < 150 kg, CrCl > 30 mL/min) *Enoxaparin/Lovenox 30 mg SQ daily (WT < 150 kg, CrCl > 10-29 mL/min) *Enoxaparin/Lovenox 30 mg SQ BID (WT < 150 kg, CrCl > 30 mL/min) AND *Sequential Compression Device (SCD) Assessment and Plan - Assessment (1) Symptomatic anemia Code(s): D64.9 - Anemia, unspecified Status: Acute (2) Fall Code(s): W19.XXXA - Unspecified fall, initial encounter Status: Acute (3) Myelodysplasia (myelodysplastic syndrome) Code(s): D46.9 - Myelodysplastic syndrome, unspecified Status: Chronic (4) Bilateral pulmonary infiltrates on chest x-ray Code(s): R91.8 - Other nonspecific abnormal finding of lung field Status: Acute (5) Generalized weakness Code(s): R53.1 - Weakness Status: Acute (6) Thrombocytopenia Code(s): D69.6 - Thrombocytopenia, unspecified Status: Chronic (7) Fever Code(s): R50.9 - Fever, unspecified Status: Acute (8) Parkinsons disease Code(s): G20 - Parkinson's disease Status: Chronic (9) Type 2 diabetes mellitus Code(s): E11.9 - Type 2 diabetes mellitus without complications Status: Chronic (10) Hypertension Code(s): I10 - Essential (primary) hypertension Status: Chronic (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 Code(s): N40.1 - Benign prostatic hyperplasia with lower urinary tract symptoms ; N13.8 - Other obstructive and reflux uropathy Status: Chronic (12) Restless leg syndrome Code(s): G25.81 - Restless legs syndrome Status: Chronic (13) Chronic neck pain Code(s): M54.2 - Cervicalgia; G89.29 - Other chronic pain Status: Chronic (14) Diverticula of colon Code(s): K57.30 - Diverticulosis of large intestine without perforation or abscess without bleeding Status: Chronic (15) History of colon polyps Code(s): Z86.010 - Personal history of colonic polyps Status: Chronic (16) Depression Code(s): F32.9 - Major depressive disorder, single episode, unspecified Status : Chronic - Plan Plan: Patient has been typed and cross and for 2 units of packed red blood cells to be administered. As I am seeing him currently his temperature was noted to be 101 so I will order a urine culture and blood cultures. I will give him Rocephin 1 g IV every 24 hours for now. I will add Zithromax IV as well since his chest x-ray showed some minimal by basilar densities that was thought to possibly be atelectasis but in view of his temperature elevation I will empirically cover him for possible pneumonia. SCDs and MARY hose will be used for DVT prophylaxis. He will be given Tylenol for fever and pain. Case management will be consulted for possible temporary correction placement. I will have physical therapy evaluate him as well to assess his gait stability and ambulatory capabilities. (7) Fever Qualifiers: Fever type: fever during puerperium Qualified Code(s): O86.4 - Pyrexia of unknown origin following delivery
[2018-07-22] MEDS ORDERED: Azithromycin Inj 500 MG in Sodium Chlor 0.9% Inj 250 ML IV.SIG SCH (17:00)
[2018-07-22 18:30] LABS: Vitamin B12 907 pg/mL (193-986)
[2018-07-22] MEDS: Sod Chloride 0.9% Inj 1,000 ML IV.CONT SCH ×2 (21:37→21:56)
[2018-07-23 06:33] LABS: Baso # (Auto) 0.1 th/mm3 (0.0-0.2); Baso % (Auto) 1.9 % (0.0-2.0); Hematocrit 24.2 % (39.0-51.0); Hemoglobin 8.1 gm/dL (13.0-17.0); Lymph % (Auto) 21.9 % (9.0-44.0); Mean Corpuscular HGB Conc 33.4 % (32.0-36.0); Mean Corpuscular Hemoglobin 35.5 pg (27.0-34.0); Mean Corpuscular Volume 106.1 fL (80.0-100.0); Mean Platelet Volume 7.4 fL (7.0-11.0); Mono # (Auto) 0.6 th/mm3 (0.0-0.9); Mono % (Auto) 12.9 % (0.0-8.0); Neut % (Auto) 62.3 % (16.0-70.0); Platelet Count 79 th/mm3 (150-450); Red Blood Count 2.28 mil/mm3 (4.50-5.90); Red Cell Distribution Width 25.7 % (11.6-17.2); White Blood Count 4.7 th/mm3 (4.0-11.0)
[2018-07-23 06:37] LABS: Chloride 103 meq/L (98-107); Potassium 3.5 meq/L (3.5-5.1); Sodium 140 meq/L (136-145)
[2018-07-23 06:41] LABS: Calcium 7.9 mg/dL (8.5-10.1)
[2018-07-23 06:42] LABS: Anion Gap 7 meq/L (5-15); Blood Urea Nitrogen 15 mg/dL (7-18); Carbon Dioxide 30.5 meq/L (21.0-32.0); Glucose,Random 118 mg/dL (74-106)
[2018-07-23 06:45] LABS: Glomerular Filtration Rate Greater Than 89 mL/min (>89)
[2018-07-23 07:21] LABS: Platelet Morphology Normal (Normal)
[2018-07-23] MEDS: Escitalopram 10 MG Tablet PO SCH (10:01)
[2018-07-23] MEDS: Magnesium Oxide 400 MG Tablet PO SCH (10:02)
[2018-07-23] MEDS: Acetaminophen 325 MG Tablet PO PRN ×2 (10:02→18:03)
--- NOTE | 2018-07-23 10:32 | P.PN ---
Subjective Interval history: No chest pain. He only gets an occasional slight cough. No shortness of breath. No abdominal pain. No diarrhea. He does have urine incontinence. He received 2 units of packed red blood cells during the night. He denies any sore throat, runny nose, earache. He does have chronic neck pain extending into his posterior upper back. Physical Exam Vital signs: Vital Signs 07/22/18 11:05 07/22/18 15:48 07/22/18 17:40 Temperature 101.5 F H 98.8 F Pulse Rate 92 H 91 H Respiratory Rate 18 18 Blood Pressure 137/60 115/61 Pulse Oximetry 97 94 L 94 L 07/22/18 17:56 07/22/18 18:23 07/22/18 20:00 Temperature 99.5 F 97.6 F 97.9 F Pulse Rate 86 87 85 Respiratory Rate 16 18 18 Blood Pressure 105/52 L 105/55 L 114/56 L Pulse Oximetry 94 L 95 07/22/18 21:32 07/23/18 00:00 07/23/18 00:09 Temperature 97.9 F 98.1 F 98.1 F Pulse Rate 85 78 78 Respiratory Rate 18 18 18 Blood Pressure 114/56 L 125/61 125/61 Pulse Oximetry 95 94 L 07/23/18 08:00 Temperature 99.1 F Pulse Rate 91 H Respiratory Rate 19 Blood Pressure 132/60 Pulse Oximetry 92 L Intake & Output 07/22/18 07/23/18 07/23/18 18:59 06:59 18:59 Intake Total 1190 / 1190 800 / 800 100 / 100 Output Total 200 / 200 Balance 990 / 990 800 / 800 100 / 100 Weight 86 kg 86.4 kg Intake: IV 350 / 350 100 / 100 Azithromycin Inj 500 MG In NS 250 / 250 Inj 250 ML @ 250 mls/hr IV.SIG Q24H ISHA Rx#:[id number] NS Inj 250 ML @ 15 mls/hr IV. 100 / 100 SIG ONCE ISHA Rx#:[id number] Rocephin Inj 1,000 MG In NS Inj 100 / 100 100 ML @ 200 mls/hr IV.SIG Q24H ISHA Rx#:[id number] Oral 840 / 840 0 / 0 Intake (Blood Product) Amt 0 / 0 800 / 800 Rbc As-3 Leukoreduced Unit 400 / 400 [id number] Rbc As-3 Leukoreduced Unit 0 / 0 400 / 400 [id number] Output: Urine Amount (Catheter) 200 / 200 Straight 200 / 200 Other: # Voids 2 Weight On Admission 86 kg Narrative: This is a pleasant white male in no distress. HEENT: Pupils equal, EOMs intact, mouth without lesions Neck: No JVD. He has tenderness over the soft tissue of the lower posterior cervical region with discomfort on turning of his head. Heart: Regular rate and rhythm without murmurs or gallops Lungs: Clear to auscultation Abdomen: Soft, nontender, no masses Extremities: Trace edema, pulses palpated, no calf tenderness Neuro: Alert, oriented, normal motor exam, sensation intact - Urinary Catheter Management Straight Cath placed during this visit: yes Reason for continuing: Not indwelling catheter Insertion date: 07/23/18 Insertion time: 06:45 Results - Labs CBC & Chem 7: 07/23/18 05:45 07/23/18 05:45 Laboratory Results - last 24 hr 07/22/18 07/22/18 07/22/18 10:40 10:40 10:40 CBC w Diff Slide review pending WBC 3.8 L RBC 1.86 L Hgb 7.2 L Hct 20.5 L* MCV 110.7 H MCH 38.9 H MCHC 35.1 RDW 26.5 H Plt Count 78 L MPV 7.5 Neut % (Auto) 65.1 Lymph % (Auto) 17.0 [place] % (Auto) 16.7 H Eos % (Auto) 0.7 Baso % (Auto) 0.5 Neut # (Auto) 2.6 Lymph # (Auto) 0.6 L [place] # (Auto) 0.6 Eos # (Auto) 0.0 Baso # (Auto) 0.0 WBC Differential . Diff Scan Auto diff confirmed Differential Comment . Platelet Estimate Low L Platelet Morphology Normal Ovalocytes 1+ H PT 12.3 H INR 1.2 APTT 27.4 Sodium 140 Potassium 3.6 Chloride 103 Carbon Dioxide 29.9 Anion Gap 7 BUN 15 Creatinine 0.53 L Estimated GFR Greater than 89 Random Glucose 123 H Calcium 8.1 L Magnesium 2.1 Total Bilirubin 0.6 AST 13 L ALT 14 Alkaline Phosphatase 81 Troponin I Less than 0.02 L Total Protein 6.9 D Albumin 2.5 L Vitamin B12 Folate TSH Ur Collection Type Urine Color Urine Clarity Urine pH Ur Specific [address] [place] Urine Protein Urine Glucose (UA) Urine Ketones Urine Occult Blood Urine Nitrate Urine Bilirubin Urine Urobilinogen Ur Leukocyte Esterase Urine RBC Urine WBC Ur Squamous Epith Cells Ur Transition Epith Cell Amorphous Sediment Fine Granular Casts Micro UA Comment Ur Microscopic Review Urine Culture Comments Urine Collection Time Blood Type Antibody Screen Ab Screen Tube Method Antibody Identification Crossmatch 07/22/18 07/22/18 07/22/18 10:40 10:40 11:05 CBC w Diff WBC RBC Hgb Hct MCV MCH MCHC RDW Plt Count MPV Neut % (Auto) Lymph % (Auto) [place] % (Auto) Eos % (Auto) Baso % (Auto) Neut # (Auto) Lymph # (Auto) [place] # (Auto) Eos # (Auto) Baso # (Auto) WBC Differential Diff Scan Differential Comment Platelet Estimate Platelet Morphology Ovalocytes PT INR APTT Sodium Potassium Chloride Carbon Dioxide Anion Gap BUN Creatinine Estimated GFR Random Glucose Calcium Magnesium Total Bilirubin AST ALT Alkaline Phosphatase Troponin I Total Protein Albumin Vitamin B12 907 Folate Greater than 20.0 H TSH 2.390 Ur Collection Type Cath Urine Color Yellow Urine Clarity Slightly cloudy Urine pH 5.[address] [place] 1.025 Urine Protein Trace Urine Glucose (UA) Negative Urine Ketones 80 or greater H Urine Occult Blood Negative Urine Nitrate Negative Urine Bilirubin Negative Urine Urobilinogen 0.2 Ur Leukocyte Esterase Negative Urine RBC 0-3 Urine WBC 0-5 Ur Squamous Epith Cells 0-5 Ur Transition Epith Cell 1-5 H Amorphous Sediment Moderate H Fine Granular Casts 1-3 H Micro UA Comment Cath-culture not ind Ur Microscopic Review Microscopic reviewed Urine Culture Comments Cath-cult not ind Urine Collection Time 1105 Blood Type Antibody Screen Ab Screen Tube Method Antibody Identification Crossmatch 07/22/18 07/22/18 07/23/18 12:00 14:45 05:45 CBC w Diff Slide review pending WBC 4.7 RBC 2.28 L Hgb 8.1 L Hct 24.2 L MCV 106.1 H D MCH 35.5 H MCHC 33.4 RDW 25.7 H Plt Count 79 L MPV 7.4 Neut % (Auto) 62.3 Lymph % (Auto) 21.9 [place] % (Auto) 12.9 H Eos % (Auto) 1.0 Baso % (Auto) 1.9 Neut # (Auto) 3.0 Lymph # (Auto) 1.0 [place] # (Auto) 0.6 Eos # (Auto) 0.0 Baso # (Auto) 0.1 WBC Differential . Diff Scan Auto diff confirmed Differential Comment . Platelet Estimate Low L Platelet Morphology Normal Ovalocytes PT INR APTT Sodium Potassium Chloride Carbon Dioxide Anion Gap BUN Creatinine Estimated GFR Random Glucose Calcium Magnesium Total Bilirubin AST ALT Alkaline Phosphatase Troponin I Total Protein Albumin Vitamin B12 Folate TSH Ur Collection Type Urine Color Urine Clarity Urine pH Ur Specific [address] [place] Urine Protein Urine Glucose (UA) Urine Ketones Urine Occult Blood Urine Nitrate Urine Bilirubin Urine Urobilinogen Ur Leukocyte Esterase Urine RBC Urine WBC Ur Squamous Epith Cells Ur Transition Epith Cell Amorphous Sediment Fine Granular Casts Micro UA Comment Ur Microscopic Review Urine Culture Comments Urine Collection Time Blood Type A Negative Antibody Screen Positive Ab Screen Tube Method Negative Antibody Identification Non-Specific Agglutinin Crossmatch See Detail 07/23/18 05:45 CBC w Diff WBC RBC Hgb Hct MCV MCH MCHC RDW Plt Count MPV Neut % (Auto) Lymph % (Auto) [place] % (Auto) Eos % (Auto) Baso % (Auto) Neut # (Auto) Lymph # (Auto) [place] # (Auto) Eos # (Auto) Baso # (Auto) WBC Differential Diff Scan Differential Comment Platelet Estimate Platelet Morphology Ovalocytes PT INR APTT Sodium 140 Potassium 3.5 Chloride 103 Carbon Dioxide 30.5 Anion Gap 7 BUN 15 Creatinine 0.49 L Estimated GFR Greater than 89 Random Glucose 118 H Calcium 7.9 L Magnesium Total Bilirubin AST ALT Alkaline Phosphatase Troponin I Total Protein Albumin Vitamin B12 Folate TSH Ur Collection Type Urine Color Urine Clarity Urine pH Ur Specific [address] [place] Urine Protein Urine Glucose (UA) Urine Ketones Urine Occult Blood Urine Nitrate Urine Bilirubin Urine Urobilinogen Ur Leukocyte Esterase Urine RBC Urine WBC Ur Squamous Epith Cells Ur Transition Epith Cell Amorphous Sediment Fine Granular Casts Micro UA Comment Ur Microscopic Review Urine Culture Comments Urine Collection Time Blood Type Antibody Screen Ab Screen Tube Method Antibody Identification Crossmatch - Imaging Impressions Cervical Spine CT 07/22/18 10:54 CONCLUSION: 1. Degenerative changes. 2. No fracture. Chest X-Ray 07/22/18 10:54 CONCLUSION: Minimal bibasilar densities likely atelectasis. Cardiomegaly. Head CT 07/22/18 10:54 CONCLUSION: 1. No acute intracranial abnormality. . Humerus X-Ray 07/22/18 11:54 CONCLUSION: Grossly unremarkable single view of the left humerus. Assessment and Plan - Assessment (1) Symptomatic anemia Code(s): D64.9 - Anemia, unspecified Status: Acute (2) Fall Code(s): W19.XXXA - Unspecified fall, initial encounter Status: Acute (3) Myelodysplasia (myelodysplastic syndrome) Code(s): D46.9 - Myelodysplastic syndrome, unspecified Status: Chronic (4) Bilateral pulmonary infiltrates on chest x-ray Code(s): R91.8 - Other nonspecific abnormal finding of lung field Status: Acute (5) Generalized weakness Code(s): R53.1 - Weakness Status: Acute (6) Thrombocytopenia Code(s): D69.6 - Thrombocytopenia, unspecified Status: Chronic (7) Fever Code(s): R50.9 - Fever, unspecified Status: Acute (8) Parkinsons disease Code(s): G20 - Parkinson's disease Status: Chronic (9) Type 2 diabetes mellitus Code(s): E11.9 - Type 2 diabetes mellitus without complications Status: Chronic (10) Hypertension Code(s): I10 - Essential (primary) hypertension Status: Chronic (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 Code(s): N40.1 - Benign prostatic hyperplasia with lower urinary tract symptoms ; N13.8 - Other obstructive and reflux uropathy Status: Chronic (12) Restless leg syndrome Code(s): G25.81 - Restless legs syndrome Status: Chronic (13) Chronic neck pain Code(s): M54.2 - Cervicalgia; G89.29 - Other chronic pain Status: Chronic (14) Diverticula of colon Code(s): K57.30 - Diverticulosis of large intestine without perforation or abscess without bleeding Status: Chronic (15) History of colon polyps Code(s): Z86.010 - Personal history of colonic polyps Status: Chronic (16) Depression Code(s): F32.9 - Major depressive disorder, single episode, unspecified Status : Chronic - Plan Plan: I will order another unit of packed red blood cells to be administered today since his hemoglobin only came up to 8.1. A chest x-ray is still pending for today. He has not had any further fever since last night so he will be continued on antibiotic therapy. I will consider changing him to oral Levaquin after the chest x-ray report comes back. Case management has been consulted because he will need temporary fpc placement when he leaves the hospital. He will likely not be able to be discharged until tomorrow. Physical therapy is seeing him the day. Continue SCDs and MARY burris for DVT prophylaxis. (7) Fever Qualifiers: Fever type: fever during puerperium Qualified Code(s): O86.4 - Pyrexia of unknown origin following delivery
--- NOTE | 2018-07-23 11:31 | XR ---
EXAM DATE: 07/23/2018 11:25 AM EDT AGE/SEX: 88 years / Male INDICATIONS: . Short of breath. CLINICAL DATA: This is the patient's subsequent encounter. Patient reports that signs and symptoms h ave been present for 3 days and indicates a pain score of 0/10. MEDICAL/SURGICAL HISTORY: . BPH. Parkinson's . Appendectomy. Cholecystectomy COMPARISON: [facility], CHEST 2V PA&LAT, 07/22/2018. . FINDINGS: PA and lateral views of the chest demonstrate a left lower lobe intra-alveolar opacity which is new f rom the prior study. The remaining lungs are clear. No effusions. Heart is mildly enlarged. Bony stru ctures are unremarkable with the exception of an age-indeterminate lower thoracic vertebral compressi on deformity. CONCLUSION: Left lower lobe infiltrate new from the prior study. Age-indeterminate lower thoracic vertebral compression fracture. Electronically signed by: Kaiser Guevara MD 07/23/2018 11:29 AM EDT
--- NOTE | 2018-07-23 13:28 | ECG ---
Date Performed: 07/22/2018 Time Performed: 10:16:55 PTAGE: 88 years EKG: Sinus rhythm NORMAL ECG PREVIOUS TRACING : 02/24/2018 22.59 DOCTOR: Jose Gutierrez Interpretating Date/Time 07/23/2018 13:26:41
[2018-07-23] MEDS: levoFLOXacin 500 MG Tablet PO SCH (15:00)
[2018-07-23] MEDS: Sod Chloride 0.9% Inj 1,000 ML IV.CONT SCH (15:12)
[2018-07-23 18:35] LABS: Hematocrit 26.3 % (39.0-51.0); Hemoglobin 8.8 gm/dL (13.0-17.0)
[2018-07-24] MEDS: Sod Chloride 0.9% Inj 1,000 ML IV.CONT SCH ×2 (00:39→04:14)
[2018-07-24] MEDS: Acetaminophen 325 MG Tablet PO PRN (00:39)
[2018-07-24 06:31] LABS: Chloride 103 meq/L (98-107); Potassium 3.6 meq/L (3.5-5.1); Sodium 140 meq/L (136-145)
[2018-07-24 06:34] LABS: Anion Gap 7 meq/L (5-15); Calcium 7.7 mg/dL (8.5-10.1); Carbon Dioxide 29.7 meq/L (21.0-32.0)
[2018-07-24 06:35] LABS: Blood Urea Nitrogen 14 mg/dL (7-18); Glucose,Random 101 mg/dL (74-106)
[2018-07-24 06:38] LABS: Glomerular Filtration Rate Greater Than 89 mL/min (>89)
[2018-07-24 06:42] LABS: Hematocrit 23.4 % (39.0-51.0); Hemoglobin 8.3 gm/dL (13.0-17.0); Mean Corpuscular HGB Conc 35.3 % (32.0-36.0); Mean Corpuscular Hemoglobin 36.3 pg (27.0-34.0); Mean Corpuscular Volume 102.8 fL (80.0-100.0); Mean Platelet Volume 7.8 fL (7.0-11.0); Platelet Count 63 th/mm3 (150-450); Red Blood Count 2.28 mil/mm3 (4.50-5.90); Red Cell Distribution Width 26.8 % (11.6-17.2); White Blood Count 4.4 th/mm3 (4.0-11.0)
[2018-07-24 08:03] LABS: Lymphocytes 19 % (9-44); Monocytes 12 % (0-8)
[2018-07-24 08:04] LABS: Platelet Morphology Normal (Normal)
--- NOTE | 2018-07-24 08:05 | P.PN ---
Subjective Interval history: He states he feels better. No nausea, vomiting, abdominal pain, chest pain. No shortness of breath. Denies any significant cough. Physical Exam Vital signs: Vital Signs 07/23/18 08:00 07/23/18 12:00 07/23/18 15:15 Temperature 99.1 F 98.4 F 98.6 F Pulse Rate 91 H 87 88 Respiratory Rate 19 19 16 Blood Pressure 132/60 110/53 L 131/69 Pulse Oximetry 92 L 94 L 07/23/18 15:30 07/23/18 16:00 07/23/18 16:15 Temperature 99.5 F Pulse Rate 84 88 Respiratory Rate 15 15 15 Blood Pressure 120/71 119/65 131/66 Pulse Oximetry 93 L 92 L 92 L 07/23/18 16:32 07/23/18 17:05 07/23/18 20:00 Temperature 99.1 F Pulse Rate 90 88 83 Respiratory Rate 15 17 23 Blood Pressure 127/71 131/66 133/64 Pulse Oximetry 93 L 94 L 07/24/18 00:00 Temperature 98.4 F Pulse Rate 79 Respiratory Rate 22 Blood Pressure 141/66 H Pulse Oximetry 94 L Intake & Output 07/23/18 07/24/18 07/24/18 18:59 06:59 18:59 Intake Total 1470 / 1470 590 / 590 Output Total 300 / 300 Balance 1470 / 1470 290 / 290 Weight 86 kg Intake: IV 750 / 750 350 / 350 NS Inj 1,000 ML @ 60 mls/hr IV. 650 / 650 350 / 350 CONT .[id number] ISHA Rx#: [id number] NS Inj 250 ML @ 15 mls/hr IV. 100 / 100 SIG ONCE ISHA Rx#:[id number] Oral 720 / 720 240 / 240 Intake (Blood Product) Amt 0 / 0 Rbc As-3 Leukoreduced Unit 0 / 0 [id number] Output: Urine 300 / 300 Other: # Incontinent Voids 3 1 # Bowel Movements 0 # Incontinent Bowel Movements 0 Narrative: This is a pleasant white male in no distress. HEENT: Pupils equal, EOMs intact, mouth without lesions Neck: No JVD. He has tenderness over the soft tissue of the lower posterior cervical region with discomfort on turning of his head. Heart: Regular rate and rhythm without murmurs or gallops Lungs: Clear to auscultation Abdomen: Soft, nontender, no masses Extremities: Trace edema, pulses palpated, no calf tenderness Neuro: Alert, oriented, normal motor exam, sensation intact - Urinary Catheter Management Straight Cath placed during this visit: yes Reason for continuing: Not indwelling catheter Insertion date: 07/23/18 Insertion time: 06:45 Results - Labs CBC & Chem 7: 07/24/18 05:20 07/24/18 05:20 Laboratory Results - last 24 hr 07/22/18 07/23/18 07/23/18 12:00 13:09 18:30 CBC w Diff WBC RBC Hgb 8.8 L Hct 26.3 L MCV MCH MCHC RDW Plt Count MPV Differential Comment Sodium Potassium Chloride Carbon Dioxide Anion Gap BUN Creatinine Estimated GFR Random Glucose Calcium Crossmatch See Detail MTS Gel Crossmatch See Detail 07/24/18 07/24/18 05:20 05:20 CBC w Diff Slide review pending WBC 4.4 RBC 2.28 L Hgb 8.3 L Hct 23.4 L MCV 102.8 H MCH 36.3 H MCHC 35.3 RDW 26.8 H Plt Count 63 L MPV 7.8 Differential Comment . Sodium 140 Potassium 3.6 Chloride 103 Carbon Dioxide 29.7 Anion Gap 7 BUN 14 Creatinine 0.46 L Estimated GFR Greater than 89 Random Glucose 101 Calcium 7.7 L Crossmatch MTS Gel Crossmatch Microbiology 07/22/18 15:30 Blood - Peripheral Aerobic Blood Culture - Preliminary No growth in 1 day 07/22/18 15:30 Blood - Peripheral Anaerobic Blood Culture - Preliminary No growth in 1 day Laboratory Results - last 48 hr 07/22/18 07/22/18 07/22/18 10:40 10:40 10:40 CBC w Diff Slide review pending WBC 3.8 L RBC 1.86 L Hgb 7.2 L Hct 20.5 L* MCV 110.7 H MCH 38.9 H MCHC 35.1 RDW 26.5 H Plt Count 78 L MPV 7.5 Neut % (Auto) 65.1 Lymph % (Auto) 17.0 [place] % (Auto) 16.7 H Eos % (Auto) 0.7 Baso % (Auto) 0.5 Neut # (Auto) 2.6 Lymph # (Auto) 0.6 L [place] # (Auto) 0.6 Eos # (Auto) 0.0 Baso # (Auto) 0.0 WBC Differential . Diff Scan Auto diff confirmed Differential Comment . Platelet Estimate Low L Platelet Morphology Normal Ovalocytes 1+ H PT 12.3 H INR 1.2 APTT 27.4 Sodium 140 Potassium 3.6 Chloride 103 Carbon Dioxide 29.9 Anion Gap 7 BUN 15 Creatinine 0.53 L Estimated GFR Greater than 89 Random Glucose 123 H Calcium 8.1 L Magnesium 2.1 Total Bilirubin 0.6 AST 13 L ALT 14 Alkaline Phosphatase 81 Troponin I Less than 0.02 L Total Protein 6.9 D Albumin 2.5 L Vitamin B12 Folate TSH Ur Collection Type Urine Color Urine Clarity Urine pH Ur Specific [place] Urine Protein Urine Glucose (UA) Urine Ketones Urine Occult Blood Urine Nitrate Urine Bilirubin Urine Urobilinogen Ur Leukocyte Esterase Urine RBC Urine WBC Ur Squamous Epith Cells Ur Transition Epith Cell Amorphous Sediment Fine Granular Casts Micro UA Comment Ur Microscopic Review Urine Culture Comments Urine Collection Time Blood Type Antibody Screen Ab Screen Tube Method Antibody Identification Crossmatch MTS Gel Crossmatch 07/22/18 07/22/18 07/22/18 10:40 10:40 11:05 CBC w Diff WBC RBC Hgb Hct MCV MCH MCHC RDW Plt Count MPV Neut % (Auto) Lymph % (Auto) [place] % (Auto) Eos % (Auto) Baso % (Auto) Neut # (Auto) Lymph # (Auto) [place] # (Auto) Eos # (Auto) Baso # (Auto) WBC Differential Diff Scan Differential Comment Platelet Estimate Platelet Morphology Ovalocytes PT INR APTT Sodium Potassium Chloride Carbon Dioxide Anion Gap BUN Creatinine Estimated GFR Random Glucose Calcium Magnesium Total Bilirubin AST ALT Alkaline Phosphatase Troponin I Total Protein Albumin Vitamin B12 907 Folate Greater than 20.0 H TSH 2.390 Ur Collection Type Cath Urine Color Yellow Urine Clarity Slightly cloudy Urine pH 5.5 Ur Specific [place] 1.025 Urine Protein Trace Urine Glucose (UA) Negative Urine Ketones 80 or greater H Urine Occult Blood Negative Urine Nitrate Negative Urine Bilirubin Negative Urine Urobilinogen 0.2 Ur Leukocyte Esterase Negative Urine RBC 0-3 Urine WBC 0-5 Ur Squamous Epith Cells 0-5 Ur Transition Epith Cell 1-5 H Amorphous Sediment Moderate H Fine Granular Casts 1-3 H Micro UA Comment Cath-culture not ind Ur Microscopic Review Microscopic reviewed Urine Culture Comments Cath-cult not ind Urine Collection Time 1105 Blood Type Antibody Screen Ab Screen Tube Method Antibody Identification Crossmatch MTS Gel Crossmatch 07/22/18 07/22/18 07/23/18 12:00 14:45 05:45 CBC w Diff Slide review pending WBC 4.7 RBC 2.28 L Hgb 8.1 L Hct 24.2 L MCV 106.1 H D MCH 35.5 H MCHC 33.4 RDW 25.7 H Plt Count 79 L MPV 7.4 Neut % (Auto) 62.3 Lymph % (Auto) 21.9 [place] % (Auto) 12.9 H Eos % (Auto) 1.0 Baso % (Auto) 1.9 Neut # (Auto) 3.0 Lymph # (Auto) 1.0 [place] # (Auto) 0.6 Eos # (Auto) 0.0 Baso # (Auto) 0.1 WBC Differential . Diff Scan Auto diff confirmed Differential Comment . Platelet Estimate Low L Platelet Morphology Normal Ovalocytes PT INR APTT Sodium Potassium Chloride Carbon Dioxide Anion Gap BUN Creatinine Estimated GFR Random Glucose Calcium Magnesium Total Bilirubin AST ALT Alkaline Phosphatase Troponin I Total Protein Albumin Vitamin B12 Folate TSH Ur Collection Type Urine Color Urine Clarity Urine pH Ur Specific [place] Urine Protein Urine Glucose (UA) Urine Ketones Urine Occult Blood Urine Nitrate Urine Bilirubin Urine Urobilinogen Ur Leukocyte Esterase Urine RBC Urine WBC Ur Squamous Epith Cells Ur Transition Epith Cell Amorphous Sediment Fine Granular Casts Micro UA Comment Ur Microscopic Review Urine Culture Comments Urine Collection Time Blood Type A Negative Antibody Screen Positive Ab Screen Tube Method Negative Antibody Identification Non-Specific Agglutinin Crossmatch See Detail MTS Gel Crossmatch 07/23/18 07/23/18 07/23/18 05:45 13:09 18:30 CBC w Diff WBC RBC Hgb 8.8 L Hct 26.3 L MCV MCH MCHC RDW Plt Count MPV Neut % (Auto) Lymph % (Auto) [place] % (Auto) Eos % (Auto) Baso % (Auto) Neut # (Auto) Lymph # (Auto) [place] # (Auto) Eos # (Auto) Baso # (Auto) WBC Differential Diff Scan Differential Comment Platelet Estimate Platelet Morphology Ovalocytes PT INR APTT Sodium 140 Potassium 3.5 Chloride 103 Carbon Dioxide 30.5 Anion Gap 7 BUN 15 Creatinine 0.49 L Estimated GFR Greater than 89 Random Glucose 118 H Calcium 7.9 L Magnesium Total Bilirubin AST ALT Alkaline Phosphatase Troponin I Total Protein Albumin Vitamin B12 Folate TSH Ur Collection Type Urine Color Urine Clarity Urine pH Ur Specific [place] Urine Protein Urine Glucose (UA) Urine Ketones Urine Occult Blood Urine Nitrate Urine Bilirubin Urine Urobilinogen Ur Leukocyte Esterase Urine RBC Urine WBC Ur Squamous Epith Cells Ur Transition Epith Cell Amorphous Sediment Fine Granular Casts Micro UA Comment Ur Microscopic Review Urine Culture Comments Urine Collection Time Blood Type Antibody Screen Ab Screen Tube Method Antibody Identification Crossmatch MTS Gel Crossmatch See Detail 07/24/18 07/24/18 05:20 05:20 CBC w Diff Slide review pending WBC 4.4 RBC 2.28 L Hgb 8.3 L Hct 23.4 L MCV 102.8 H MCH 36.3 H MCHC 35.3 RDW 26.8 H Plt Count 63 L MPV 7.8 Neut % (Auto) Lymph % (Auto) [place] % (Auto) Eos % (Auto) Baso % (Auto) Neut # (Auto) Lymph # (Auto) [place] # (Auto) Eos # (Auto) Baso # (Auto) WBC Differential Diff Scan Differential Comment . Platelet Estimate Platelet Morphology Ovalocytes PT INR APTT Sodium 140 Potassium 3.6 Chloride 103 Carbon Dioxide 29.7 Anion Gap 7 BUN 14 Creatinine 0.46 L Estimated GFR Greater than 89 Random Glucose 101 Calcium 7.7 L Magnesium Total Bilirubin AST ALT Alkaline Phosphatase Troponin I Total Protein Albumin Vitamin B12 Folate TSH Ur Collection Type Urine Color Urine Clarity Urine pH Ur Specific [place] Urine Protein Urine Glucose (UA) Urine Ketones Urine Occult Blood Urine Nitrate Urine Bilirubin Urine Urobilinogen Ur Leukocyte Esterase Urine RBC Urine WBC Ur Squamous Epith Cells Ur Transition Epith Cell Amorphous Sediment Fine Granular Casts Micro UA Comment Ur Microscopic Review Urine Culture Comments Urine Collection Time Blood Type Antibody Screen Ab Screen Tube Method Antibody Identification Crossmatch MTS Gel Crossmatch - Imaging Impressions Chest X-Ray 07/23/18 00:00 CONCLUSION: Left lower lobe infiltrate new from the prior study. Age-indeterminate lower thoracic vertebral compression fracture. Impressions Cervical Spine CT 07/22/18 10:54 CONCLUSION: 1. Degenerative changes. 2. No fracture. Chest X-Ray 07/22/18 10:54 CONCLUSION: Minimal bibasilar densities likely atelectasis. Cardiomegaly. Head CT 07/22/18 10:54 CONCLUSION: 1. No acute intracranial abnormality. . Humerus X-Ray 07/22/18 11:54 CONCLUSION: Grossly unremarkable single view of the left humerus. Chest X-Ray 07/23/18 00:00 CONCLUSION: Left lower lobe infiltrate new from the prior study. Age-indeterminate lower thoracic vertebral compression fracture. Assessment and Plan - Assessment (1) Symptomatic anemia Code(s): D64.9 - Anemia, unspecified Status: Acute (2) Left lower lobe pneumonia Code(s): J18.1 - Lobar pneumonia, unspecified organism Status: Acute (3) Fall Code(s): W19.XXXA - Unspecified fall, initial encounter Status: Acute (4) Myelodysplasia (myelodysplastic syndrome) Code(s): D46.9 - Myelodysplastic syndrome, unspecified Status: Chronic (5) Bilateral pulmonary infiltrates on chest x-ray Code(s): R91.8 - Other nonspecific abnormal finding of lung field Status: Acute (6) Generalized weakness Code(s): R53.1 - Weakness Status: Acute (7) Thrombocytopenia Code(s): D69.6 - Thrombocytopenia, unspecified Status: Chronic (8) Fever Code(s): R50.9 - Fever, unspecified Status: Acute (9) Parkinsons disease Code(s): G20 - Parkinson's disease Status: Chronic (10) Type 2 diabetes mellitus Code(s): E11.9 - Type 2 diabetes mellitus without complications Status: Chronic (11) Hypertension Code(s): I10 - Essential (primary) hypertension Status: Chronic (12) BPH w urinary obs/LUTS Code(s): N40.1 - Benign prostatic hyperplasia with lower urinary tract symptoms ; N13.8 - Other obstructive and reflux uropathy Status: Chronic (13) Restless leg syndrome Code(s): G25.81 - Restless legs syndrome Status: Chronic (14) Chronic neck pain Code(s): M54.2 - Cervicalgia; G89.29 - Other chronic pain Status: Chronic (15) Diverticula of colon Code(s): K57.30 - Diverticulosis of large intestine without perforation or abscess without bleeding Status: Chronic (16) History of colon polyps Code(s): Z86.010 - Personal history of colonic polyps Status: Chronic (17) Depression Code(s): F32.9 - Major depressive disorder, single episode, unspecified Status : Chronic - Plan Plan: He was put on Levaquin orally yesterday for his left lower lobe pneumonia and he will be give 7 days of therapy. He can be discharged to the snf today. He needs physical therapy. He will need to followup with his precision inspector (Dr Santos) for his severe myelodysplasia since he is requiring blood transfusions now more frequently. His other routine home medications will be continued. (8) Fever Qualifiers: Fever type: fever during puerperium Qualified Code(s): O86.4 - Pyrexia of unknown origin following delivery
[2018-07-24] MEDS: Escitalopram 10 MG Tablet PO SCH (08:42)
[2018-07-24] MEDS: Magnesium Oxide 400 MG Tablet PO SCH (08:42)
[2018-07-24] MEDS: levoFLOXacin 500 MG Tablet PO SCH (08:42)
[2018-07-24 12:32] VITALS: BP 141/85; PULSE 92; RESP 18; TEMP 98.7; O2SAT 92
== END 2018-07-24 17:17 | disposition home or self-care (01) ==
LOC: PHED 10:11 → PHEDA 10:11 → PH3 13:21
PROVIDERS: ADMIT Family Medicine; ATTEND Family Medicine

== ENCOUNTER 2018-07-25 14:41 | Observation (INO) ==
--- NOTE | 2018-07-25 15:02 | ED ---
HPI General Chief complaint: Weakness Stated complaint: genreal weakness/evac Source: EMS Mode of arrival: EMS Limitations: physical limitation History of Present Illness HPI narrative: 88yo M with PMH of Parkinson's disease, HTN, DM, myelodysplasia with chronic anemia and thrombocytopenia was brought in by [facility] after fall and could not get up today. Pt said he slid out of chair and could not get up. Denies any head injury or LOC. Pt has generalized weakness and generalized chronic pain. Said he lives by himself. Denies any fever, chest pain, sob, n/ v, abdominal pain, focal weakness or numbness. Pt was just admitted 07/22/18- for generalized weakness and fall. Related Data Home Medications Medication Instructions Recorded Confirmed escitalopram oxalate 5 mg PO DAILY 06/03/18 07/25/18 terazosin 5 mg PO BID 06/03/18 07/25/18 magnesium 500 mg PO DAILY 07/22/18 07/25/18 ropinirole 1 mg PO TID 07/22/18 07/25/18 Previous Rx's Medication Instructions Recorded acetaminophen 650 mg PO Q6H PRN tab 07/24/18 levofloxacin 500 mg PO DAILY #7 tab 07/24/18 Allergies Allergy/AdvReac Type Severity Reaction Status Date / Time amoxicillin Allergy Intermediate rash Verified 07/25/18 15:17 Penicillins Allergy Unknown none Verified 07/25/18 15:17 Review of Systems ROS: all other systems reviewed are negative ON LICENSE OF [facility] Social History Social History Substance History: No History of Abuse Second Hand Smoke Exposure: No Smoking Status: Unknown if ever smoked How Often Do You Have a Drink Containing Alcohol: Never Recent Travel in [facility] within the Last 8 Weeks: No Recent Out of Country Travel within the Last 8 Weeks: No Exam Narrative Exam Narrative: GENERAL: 88yo M in mild distress. SKIN: Focused skin assessment warm/dry. HEAD: Atraumatic. Normocephalic. EYES: Pupils equal and round at 3mm bilaterally. EOMI. ENT: No nasal bleeding or discharge. Mucous membranes pink and moist. NECK: Trachea midline. No JVD. No midline cervical spine ttp. CARDIOVASCULAR: Regular rate and rhythm. No murmur appreciated. RESPIRATORY: No accessory muscle use. Clear to auscultation. Breath sounds equal bilaterally. GASTROINTESTINAL: Abdomen soft, non-tender, nondistended. MUSCULOSKELETAL: No obvious deformities. No clubbing. No cyanosis. No edema. NEUROLOGICAL: Awake and alert. No obvious cranial nerve deficits. Bilateral lower extremity 4/5 muscle strength. Mild tremors in upper extremities. Normal speech. AAOx3. PSYCHIATRIC: Appropriate mood and affect; insight and judgment normal. Course Initial Documented Vital Signs Temperature 98.5 F 07/25/18 14:53 Pulse Rate 97 H 07/25/18 14:53 Respiratory Rate 22 07/25/18 14:53 Blood Pressure 138/55 L 07/25/18 14:53 Pulse Oximetry 95 07/25/18 14:53 Last Documented Vital Signs Temperature 98.8 F 07/26/18 07:35 Pulse Rate 98 H 07/26/18 07:35 Respiratory Rate 20 07/26/18 07:35 Blood Pressure 132/63 07/26/18 07:35 Pulse Oximetry 92 L 07/26/18 07:43 Medical Decision Making [facility] Narrative Medical decision making narrative: 88yo M here for evaluation after fall today. Pt has generalized weakness and is unable to take care of himself. Denies any head injury. O2 sat is 89-91% on RA so place on 2L NC. Pt denies any chest pain or sob. However, he does appear to be tachypneic and temp is 100.2F. Labs reviewed, no leukocytosis. H/H low at 9.3/26.8 but this is better than his baseline. CPK low. CXR showed increasing parenchymal changes left base. Pt will be covered with vancomycin and aztreonam for HCAP since he was recently admitted. Pt is unable to take care of himself and does not have oxygen at home so will admit for pneumonia. Medical Screen Exam Complete: Yes Emergency Medical Condition: Yes Differential Diagnosis Differential Diagnosis: Failure to thrive vs. pneumonia vs. symptomatic anemia vs. dehydration vs. electrolyte abnormality Lab Data Result diagrams: 07/25/18 15:15 07/25/18 15:15 Lab Results 07/25/18 07/25/18 07/25/18 Range/Units 15:15 15:15 17:56 CBC w Diff Slide review pending WBC 4.7 (4.0-11.0) th/mm3 RBC 2.59 L (4.50-5.90) mil/mm3 Hgb 9.3 L (13.0-17.0) gm/dL Hct 26.8 L (39.0-51.0) % MCV 103.4 H (80.0-100.0) fL MCH 35.8 H (27.0-34.0) pg MCHC 34.6 (32.0-36.0) % RDW 26.3 H (11.6-17.2) % Plt Count 75 L (150-450) th/mm3 MPV 7.5 (7.0-11.0) fL WBC Differential Manual diff final Seg Neuts % (Manual) 67 (16-70) % Lymphocytes % (Manual) 17 (9-44) % Monocytes % (Manual) 14 H (0-8) % Eosinophils % (Manual) 2 (0-4) % Abs Neuts (Manual) 3.1 (1.8-7.7) th/mm3 Differential Comment . Platelet Estimate Low L (Normal) Platelet Morphology Normal (Normal) Sodium 139 (136-145) meq/L Potassium 4.0 (3.5-5.1) meq/L Chloride 102 (98-107) meq/L Carbon Dioxide 30.1 (21.0-32.0) meq/L Anion Gap 7 (5-15) meq/L BUN 14 (7-18) mg/dL Creatinine 0.60 (0.60-1.30) mg/dL Estimated GFR Greater than 89 (>89) mL/min POC Glucose 135 H (68-110) mg/dl Random Glucose 142 H (74-106) mg/dL Calcium 8.0 L (8.5-10.1) mg/dL Magnesium 2.3 (1.5-2.5) mg/dL Total Creatine Kinase 37 L (39-308) U/L 07/26/18 Range/Units 01:56 CBC w Diff WBC (4.0-11.0) th/mm3 RBC (4.50-5.90) mil/mm3 Hgb (13.0-17.0) gm/dL Hct (39.0-51.0) % MCV (80.0-100.0) fL MCH (27.0-34.0) pg MCHC (32.0-36.0) % RDW (11.6-17.2) % Plt Count (150-450) th/mm3 MPV (7.0-11.0) fL WBC Differential Seg Neuts % (Manual) (16-70) % Lymphocytes % (Manual) (9-44) % Monocytes % (Manual) (0-8) % Eosinophils % (Manual) (0-4) % Abs Neuts (Manual) (1.8-7.7) th/mm3 Differential Comment Platelet Estimate (Normal) Platelet Morphology (Normal) Sodium (136-145) meq/L Potassium (3.5-5.1) meq/L Chloride (98-107) meq/L Carbon Dioxide (21.0-32.0) meq/L Anion Gap (5-15) meq/L BUN (7-18) mg/dL Creatinine (0.60-1.30) mg/dL Estimated GFR (>89) mL/min POC Glucose 109 (68-110) mg/dl Random Glucose (74-106) mg/dL Calcium (8.5-10.1) mg/dL Magnesium (1.5-2.5) mg/dL Total Creatine Kinase (39-308) U/L Imaging Data Radiologist's impression: Chest X-Ray 07/25/18 14:56 CONCLUSION: Increasing parenchymal changes left base Moderate commentated cardiomegaly ECG Data EKG Prior to Arrival: No Attestation: I personally reviewed and interpreted this ECG as follows: Interpretation: NSR 97bpm. LAD. No ST segment elevation or depression. TWI III. Discharge Plan Discharge Disposition Patient Disposition: 30 Still Patient Discharge Details Diagnosis: Pneumonia Physicians Team ED Provider: Carmen Gonzales Primary Care Provider: UNKNOWN, Attending Provider: Odin Nunez Other Providers: Indigo Milton,Agency Discharge Interventions Interventions: ED Discharge Assessment Last Done: 07/25/18 19:01 Status ED Status: Left Department Discharge Information Discharge Date/Time: 07/25/18 18:40
[2018-07-25 15:22] LABS: Hematocrit 26.8 % (39.0-51.0); Hemoglobin 9.3 gm/dL (13.0-17.0); Mean Corpuscular HGB Conc 34.6 % (32.0-36.0); Mean Corpuscular Hemoglobin 35.8 pg (27.0-34.0); Mean Corpuscular Volume 103.4 fL (80.0-100.0); Mean Platelet Volume 7.5 fL (7.0-11.0); Platelet Count 75 th/mm3 (150-450); Red Blood Count 2.59 mil/mm3 (4.50-5.90); Red Cell Distribution Width 26.3 % (11.6-17.2); White Blood Count 4.7 th/mm3 (4.0-11.0)
[2018-07-25 15:33] LABS: Chloride 102 meq/L (98-107); Sodium 139 meq/L (136-145)
[2018-07-25 15:36] LABS: Anion Gap 7 meq/L (5-15); Blood Urea Nitrogen 14 mg/dL (7-18); Carbon Dioxide 30.1 meq/L (21.0-32.0); Glucose,Random 142 mg/dL (74-106); Magnesium 2.3 mg/dL (1.5-2.5)
[2018-07-25 15:40] LABS: Glomerular Filtration Rate Greater Than 89 mL/min (>89)
[2018-07-25] MEDS ORDERED: Acetaminophen 325 MG Tablet PO ONE (15:42)
[2018-07-25 15:48] LABS: Creatine Kinase 37 U/L (39-308)
--- NOTE | 2018-07-25 15:53 | XR ---
EXAM DATE: 07/25/2018 3:50 PM EDT AGE/SEX: 88 years / Male INDICATIONS: Difficulty breathing for 24 hours. CLINICAL DATA: This is the patient's initial encounter. Patient reports that signs and symptoms have been present for 1 day and indicates a pain score of 0/10. MEDICAL/SURGICAL HISTORY: . BPH. Parkinson's. Appendectomy. Cholecystectomy. COMPARISON: [facility], CHEST 2V PA&LAT, 07/23/2018. . FINDINGS: Moderate compensated cardiomegaly with minimal parenchymal changes left base that have increased in t he interval. No pleural effusion. No pneumothorax. CONCLUSION: Increasing parenchymal changes left base Moderate commentated cardiomegaly Electronically signed by: Tesfaye Medina MD 07/25/2018 3:52 PM EDT
[2018-07-25] MEDS ORDERED: Vancomycin Inj 1 GM/200 ML PIGGYBACK IV.SIG ONE (16:09)
[2018-07-25 16:10] LABS: Eosinophils 2 % (0-4); Lymphocytes 17 % (9-44); Monocytes 14 % (0-8); Platelet Morphology Normal (Normal)
[2018-07-25] MEDS ORDERED: Vancomycin Inj 1,000 MG in Sodium Chlor 0.9% Inj 250 ML IV.SIG ONE (17:00)
[2018-07-25] MEDS ORDERED: Acetaminophen 325 MG Tablet PO PRN (17:13)
[2018-07-25] MEDS ORDERED: Bisacodyl 10 MG Supp RECTAL PRN (17:17)
--- NOTE | 2018-07-25 17:36 | P.HP ---
History of Present Illness Service: [facility] Primary Care Physician: UNKNOWN Home docs Chief Complaint: Fell at home with difficulty in getting up pneumonia History of Present Illness: Patient is an 88-year-old white male well-known to me who was admitted earlier this week with increasing weakness and generally not feeling well of several days he had a fall several days ago and also had a fall today was unable to get up and came back to the emergency room. He does use a walker at home. He has history of Parkinson's disease but does not take any medication for this. He has chronic anemia and thrombocytopenia secondary to myelodysplasia followed by heme . Due to his requirements of frequent transfusions, patient and his housekeeping lead, Dr. Santos, have decided to start VID AZA which will begin on July 29, 2018. His hemoglobin earlier in the week was 7.2 which required blood his hemoglobin today is approximately 9 while he was in the hospital he had a temperature of 101 chest x-ray showed a left lower lobe infiltrate was discharged on p.o. Levaquin patient does not complain of any fever chills or sweats no cold-like symptom. Evaluation in the emergency room on 07 25 shows improvement in his CBC BMP is stable chest x-ray shows progression of his initial pneumonia and he was started on Azactam and vancomycin. Note the patient at home did not take any of his medicines including his p.o. antibiotic Levaquin. Patient will be admitted to observation status I have discussed that he will need a rehab center as he is not safe to be home due to his frequent falls in his medical history. On his admission he was seen by physical therapy and they did recommend therapy I will not reconsult him as the therapy the therapist just saw him within the last 48 hours. Patient has agreed to go to rehab center and will we will arrange. - Diagnosis (1) Left lower lobe pneumonia (2) Myelodysplasia (myelodysplastic syndrome) (3) Anemia (4) Generalized weakness (5) Fall Review of Systems Constitutional: Reports fatigue, Reports lack of energy Neurologic: Reports unsteadiness (difficulty ambulating) PMF - History History Provided By: Patient, Medical Record, Tie Carrier / EMT - Medical History Medical History: Medical History (Last Reviewed 07/25/18 @ 14:58 by Nellie Freeman RN) Anemia BPH (benign prostatic hyperplasia) Compression fracture Disc degeneration Lower back pain MDS (myelodysplastic syndrome) Parkinson disease - Surgical History Surgical History: Surgical History (Last Reviewed 07/25/18 @ 14:58 by Nellie Freeman RN) Hx of appendectomy Hx of cholecystectomy - Tobacco History Second Hand Smoke Exposure: No Smoking Status: Never smoker - Alcohol History How Often Do You Have a Drink Containing Alcohol: Never - Substance Use History Substance History: No History of Abuse - Travel History Recent Travel in the [place] Within the Last 8 Weeks: No Recent Travel Out of the Country Within the Last 8 Weeks: No - Immunization History Tetanus Immunization: <5 Years Hx Influenza Vaccine This Season: Yes Medications and Allergies Active Medications: Active Medications Acetaminophen (Tylenol) 650 mg PO Q6H PRN PRN Reason: Pain 1-10 Or Temp > 100.4 F Escitalopram Oxalate (Lexapro) 5 mg PO DAILY ISHA Vancomycin HCl 1,000 mg/ (Sodium Chloride) 250 mls @ 250 mls/hr IV.SIG ONCE ONE Stop: 07/25/18 17:59 Magnesium Oxide (Mag-Ox) 400 mg PO DAILY ISHA Ropinirole HCl (Requip) 1 mg PO TID ISHA Terazosin HCl (Hytrin) 5 mg PO BID ISHA Allergies Allergy/AdvReac Type Severity Reaction Status Date / Time amoxicillin Allergy Intermediate rash Verified 07/25/18 15:17 Penicillins Allergy Unknown none Verified 07/25/18 15:17 Home Medications Medication Instructions Recorded Confirmed Type escitalopram oxalate 5 mg PO DAILY 06/03/18 07/25/18 History terazosin 5 mg PO BID 06/03/18 07/25/18 History magnesium 500 mg PO DAILY 07/22/18 07/25/18 History ropinirole 1 mg PO TID 07/22/18 07/25/18 History Exam Vital signs: Vital Signs 07/25/18 14:53 07/25/18 14:59 07/25/18 16:04 Temperature 98.5 F 100.2 F H Pulse Rate 97 H 97 H 89 Respiratory Rate 22 26 H 24 Blood Pressure 138/55 L 148/65 H 156/72 H Pulse Oximetry 95 95 96 07/25/18 16:49 Temperature Pulse Rate 96 H Respiratory Rate 24 Blood Pressure 138/57 L Pulse Oximetry 96 Intake & Output 07/24/18 07/25/18 07/25/18 18:59 06:59 18:59 Weight 85 kg Narrative: GENERAL: SKIN: Warm and dry. HEAD: Normocephalic. EYES: No scleral icterus. No injection or drainage. NECK: Supple, trachea midline. No JVD or lymphadenopathy. CARDIOVASCULAR: Regular rate and rhythm without murmurs, gallops, or rubs. RESPIRATORY:Decrease Breath sounds equal bilaterally. No accessory muscle use. On oxygen 2 liters chronic GASTROINTESTINAL: Abdomen soft, non-tender, nondistended. MUSCULOSKELETAL: No cyanosis, or edema. BACK: Nontender without obvious deformity. No CVA tenderness. Results - Labs CBC & Chem 7: 07/25/18 15:15 07/25/18 15:15 Labs: Laboratory Results - last 24 hr 07/25/18 07/25/18 15:15 15:15 CBC w Diff Slide review pending WBC 4.7 RBC 2.59 L Hgb 9.3 L Hct 26.8 L MCV 103.4 H MCH 35.8 H MCHC 34.6 RDW 26.3 H Plt Count 75 L MPV 7.5 WBC Differential Manual diff final Seg Neuts % (Manual) 67 Lymphocytes % (Manual) 17 Monocytes % (Manual) 14 H Eosinophils % (Manual) 2 Abs Neuts (Manual) 3.1 Differential Comment . Platelet Estimate Low L Platelet Morphology Normal Sodium 139 Potassium 4.0 Chloride 102 Carbon Dioxide 30.1 Anion Gap 7 BUN 14 Creatinine 0.60 Estimated GFR Greater than 89 Random Glucose 142 H Calcium 8.0 L Magnesium 2.3 Total Creatine Kinase 37 L - Imaging Impressions Chest X-Ray 07/25/18 14:56 CONCLUSION: Increasing parenchymal changes left base Moderate commentated cardiomegaly Caprini VTE Risk Assessment Caprini VTE Risk Assessment: Moderate/High Risk (score >= 2) Caprini Risk Assessment Model: Point Value = 1 Point Value = 2 Point Value = 3 Point Value = 5 Age 41-60 Minor surgery BMI > 25 kg/m2 Swollen legs Varicose veins or History of unexplained or recurrent spontaneous Oral contraceptives or hormone replacement Sepsis (< 1 month) Serious lung disease, including pneumonia (< 1 month) Abnormal pulmonary function Acute myocardial infarction Congestive heart failure (< 1 month) History of inflammatory bowel disease Medical patient at bed rest Age 61-74 Arthroscopic surgery Major open surgery (> 45 min) Laparoscopic surgery (> 45 min) Malignancy Confined to bed (> 72 hours) Immobilizing plaster cast Central venous access Age >= 75 History of VTE Family history of VTE Factor V Leiden Prothrombin [id number] Lupus anticoagulant Anticardiolipin antibodies Elevated serum homocysteine Heparin-induced thrombocytopenia Other congenital or acquired thrombophilia Stroke (< 1 month) Elective arthroplasty Hip, pelvis, or leg fracture Acute spinal cord injury (< 1 month) Prophylaxis Regimen: Total Risk Factor Score Risk Level Prophylaxis Regimen 0-1 Low Early ambulation 2 Moderate Order ONE of the following: *Sequential Compression Device (SCD) *Heparin 5000 units SQ BID 3-4 Higher Order ONE of the following medications: *Heparin 5000 units SQ TID *Enoxaparin/Lovenox 40 mg SQ daily (WT < 150 kg, CrCl > 30 mL/min) *Enoxaparin/Lovenox 30 mg SQ daily (WT < 150 kg, CrCl > 10-29 mL/min) *Enoxaparin/Lovenox 30 mg SQ BID (WT < 150 kg, CrCl > 30 mL/min) AND/OR *Sequential Compression Device (SCD) 5 or more Highest Order ONE of the following medications: *Heparin 5000 units SQ TID (Preferred with Epidurals) *Enoxaparin/Lovenox 40 mg SQ daily (WT < 150 kg, CrCl > 30 mL/min) *Enoxaparin/Lovenox 30 mg SQ daily (WT < 150 kg, CrCl > 10-29 mL/min) *Enoxaparin/Lovenox 30 mg SQ BID (WT < 150 kg, CrCl > 30 mL/min) AND *Sequential Compression Device (SCD) Assessment and Plan - Assessment (1) Left lower lobe pneumonia Code(s): J18.1 - Lobar pneumonia, unspecified organism Status: Acute Plan: Patient was started on Azactam in the ER along with vancomycin we will continue Azactam for now, patient did have a prescription for Levaquin but he did not take any yet will probably use this in the rehab center when he goes there also patient is on chronic oxygen therapy at 2 L this will be continued lab work is stable for the patient and this can be followed up in the rehab center (2) Myelodysplasia (myelodysplastic syndrome) Code(s): D46.9 - Myelodysplastic syndrome, unspecified Status: Acute Plan: Patient with history of as above will keep his appointment on 07/29/2018 with hematology if he is in rehab will arrange transportation to that appointment (3) Anemia Code(s): D64.9 - Anemia, unspecified Status: Acute Plan: As above we will follow his hemoglobin and CBC (4) Generalized weakness Code(s): R53.1 - Weakness Status: Acute Plan: Patient is already been assessed by physical therapy earlier this week as per their notes will need physical therapy as rehab (5) Fall Code(s): W19.XXXA - Unspecified fall, initial encounter Status: Acute Plan: Due to his falls at home he is not safe to be there as he lives by himself again will arrange for rehab - Plan Plan is to arrange for rehab Code Status: DNR
[2018-07-25] MEDS: Sodium Chloride 0.45 % Inj 1,000 ML IV.CONT SCH (18:02)
[2018-07-25 20:43] VITALS: RESP 20
[2018-07-25] MEDS: Senna/Docusate Sodium 8.6/50 MG Tablet PO SCH (20:57)
[2018-07-26] MEDS: Sodium Chloride 0.45 % Inj 1,000 ML IV.CONT SCH (08:45)
[2018-07-26] MEDS ORDERED: Escitalopram 10 MG Tablet PO SCH (09:00)
[2018-07-26] MEDS ORDERED: Magnesium Oxide 400 MG Tablet PO SCH (09:00)
--- NOTE | 2018-07-26 10:38 | P.DS ---
Date of admission: 07/25/18 17:00 Primary care physician: UNKNOWN home docs Attending physician on discharge: Odin Nunez Anticipated date of discharge: 07/26/18 Brief History from admission: Patient is an 88-year-old white male well-known to me who was admitted earlier this week with increasing weakness and generally not feeling well of several days he had a fall several days ago and also had a fall today was unable to get up and came back to the emergency room. He does use a walker at home. He has history of Parkinson's disease but does not take any medication for this. He has chronic anemia and thrombocytopenia secondary to myelodysplasia followed by heme . Due to his requirements of frequent transfusions, patient and his beater machine operator, Dr. Santos, have decided to start VID AZA which will begin on July 29, 2018. His hemoglobin earlier in the week was 7.2 which required blood his hemoglobin today is approximately 9 while he was in the hospital he had a temperature of 101 chest x-ray showed a left lower lobe infiltrate was discharged on p.o. Levaquin patient does not complain of any fever chills or sweats no cold-like symptom. Evaluation in the emergency room on 07 25 shows improvement in his CBC BMP is stable chest x-ray shows progression of his initial pneumonia and he was started on Azactam and vancomycin. Note the patient at home did not take any of his medicines including his p.o. antibiotic Levaquin. Patient will be admitted to observation status I have discussed that he will need a rehab center as he is not safe to be home due to his frequent falls in his medical history. On his admission he was seen by physical therapy and they did recommend therapy I will not reconsult him as the therapy the therapist just saw him within the last 48 hours. Patient has agreed to go to rehab center and will we will arrange. DS: Diagnosis - Discharge Diagnosis (1) Left lower lobe pneumonia Status: Acute (2) Myelodysplasia (myelodysplastic syndrome) Status: Acute (3) Anemia Status: Acute (4) Generalized weakness Status: Acute (5) Fall Status: Acute DS: Summary Hospital Course: Patient admitted for IV antibiotic for pneumonia ,was given po antibiotic but never took prescription and had falls at home ,also with myelodysplastic syndrome and is to start chemo agent next week. I feel patient not safe to go home severe weakness and needs in patient rehab ,patient refused this earlier this week but now agrees as long as i make sure he gets proper rehab and i will follow patient at rehab. I will follow labs cbc bmp to be drawn on Saturday and continue Levaquin for 1 week then repeat chest XRAY I . I discussed code status with patient and he wants to be DNR. I will continue his home medications . - Time Spent with Patient Total time spent providing and/or coordinating discharge services: Less than 30 minutes - Quality: VTE Deep Vein Thrombosis/Pulmonary Embolism Present on Admission: No Exam Vital signs: Vital Signs 07/25/18 14:53 07/25/18 14:59 07/25/18 16:04 Temperature 98.5 F 100.2 F H Pulse Rate 97 H 97 H 89 Respiratory Rate 22 26 H 24 Blood Pressure 138/55 L 148/65 H 156/72 H Pulse Oximetry 95 95 96 07/25/18 16:49 07/25/18 17:31 07/25/18 17:36 Temperature 99.1 F Pulse Rate 96 H 89 Respiratory Rate 24 22 Blood Pressure 138/57 L Pulse Oximetry 96 96 07/25/18 18:14 07/25/18 19:13 07/25/18 20:00 Temperature 97.8 F Pulse Rate 90 90 Respiratory Rate 22 16 20 Blood Pressure 133/50 L 130/60 Pulse Oximetry 95 97 07/25/18 22:30 07/26/18 00:00 07/26/18 07:35 Temperature 98.6 F 98.8 F Pulse Rate 85 98 H Respiratory Rate 20 20 Blood Pressure 126/60 132/63 Pulse Oximetry 96 97 92 L 07/26/18 07:43 Temperature Pulse Rate Respiratory Rate Blood Pressure Pulse Oximetry 92 L Intake & Output 07/25/18 07/26/18 07/26/18 18:59 06:59 18:59 Intake Total 100 / 100 470 / 470 1000 / 1000 Balance 100 / 100 470 / 470 1000 / 1000 Weight 85 kg 90.1 kg Intake: IV 100 / 100 350 / 350 1000 / 1000 1/2 Normal Saline Inj 1,000 ML 1000 / 1000 @ 75 mls/hr IV.CONT .[id number] ISHA Rx#:[id number] Azactam Inj 1,000 MG In NS Inj 100 / 100 100 / 100 100 ML @ 200 mls/hr IV.SIG Q8H ISHA Rx#:[id number] Vancomycin Inj 1,000 MG In NS 250 / 250 Inj 250 ML @ 250 mls/hr IV.SIG ONCE ONE Rx#:[id number] Oral 120 / 120 Other: # Voids 4 Narrative: GENERAL: SKIN: Warm and dry. HEAD: Normocephalic. EYES: No scleral icterus. No injection or drainage. NECK: Supple, trachea midline. No JVD or lymphadenopathy. CARDIOVASCULAR: Regular rate and rhythm without murmurs, gallops, or rubs. RESPIRATORY: Breath sounds equal bilaterally. No accessory muscle use. GASTROINTESTINAL: Abdomen soft, non-tender, nondistended. MUSCULOSKELETAL: No cyanosis,chronic plus 2 edema BACK: Nontender without obvious deformity. No CVA tenderness. Results Procedures completed during hospitalization: none on oxygen 2liters Labs on day of discharge: Labs from last 24 hours 07/26/18 07/25/18 07/25/18 01:56 17:56 15:15 CBC w Diff WBC RBC Hgb Hct MCV MCH MCHC RDW Plt Count MPV WBC Differential Seg Neuts % (Manual) Lymphocytes % (Manual) Monocytes % (Manual) Eosinophils % (Manual) Abs Neuts (Manual) Differential Comment Platelet Estimate Platelet Morphology Sodium 139 Potassium 4.0 Chloride 102 Carbon Dioxide 30.1 Anion Gap 7 BUN 14 Creatinine 0.60 Estimated GFR Greater than 89 POC Glucose 109 135 H Random Glucose 142 H Calcium 8.0 L Magnesium 2.3 Total Creatine Kinase 37 L 07/25/18 15:15 CBC w Diff Slide review pending WBC 4.7 RBC 2.59 L Hgb 9.3 L Hct 26.8 L MCV 103.4 H MCH 35.8 H MCHC 34.6 RDW 26.3 H Plt Count 75 L MPV 7.5 WBC Differential Manual diff final Seg Neuts % (Manual) 67 Lymphocytes % (Manual) 17 Monocytes % (Manual) 14 H Eosinophils % (Manual) 2 Abs Neuts (Manual) 3.1 Differential Comment . Platelet Estimate Low L Platelet Morphology Normal Sodium Potassium Chloride Carbon Dioxide Anion Gap BUN Creatinine Estimated GFR POC Glucose Random Glucose Calcium Magnesium Total Creatine Kinase - Impressions ITS Impressions Chest X-Ray 07/25/18 14:56 CONCLUSION: Increasing parenchymal changes left base Moderate commentated cardiomegaly - Additional Comments Patient on chronic 2 liters oxygen Discharge Plan - Discharge Disposition Patient Disposition: 03 Discharge to [facility] - Discharge Condition Condition: Stable - Discharge Order Discharge Orders: Discharge Order (Routine); Ordered 07/26/18 Ordered By: Odin Nunez - Discharge Details Anticipated Discharge Date: 07/26/18 - Physicians Team Primary Care Provider: UNKNOWN, Attending Provider: Odin Nunez Other Providers: Cony Escoto,[place]
[2018-07-26 12:07] VITALS: BP 130/60; PULSE 94; TEMP 98.6; O2SAT 93
[2018-07-26] MEDS: Senna/Docusate Sodium 8.6/50 MG Tablet PO SCH (13:37)
--- NOTE | 2018-07-27 13:00 | ECG ---
Date Performed: 07/25/2018 Time Performed: 14:59:39 PTAGE: 88 years EKG: Sinus rhythm NORMAL ECG PREVIOUS TRACING : 07/22/2018 10.16 Since the previous tracing, no significant change noted DOCTOR: Jm Wyman Interpretating Date/Time 07/27/2018 12:59:50
== END 2018-07-26 13:28 ==
LOC: PHED 14:41 → PHEDA 14:41 → PH3 19:08
PROVIDERS: ADMIT Internal Medicine; ATTEND Internal Medicine

== ENCOUNTER 2018-08-26 11:05 | Observation (INO) ==
--- NOTE | 2018-08-26 11:55 | ED ---
HPI General Chief complaint: Medical Clearance Stated complaint: Poss Blood Transfusion Time Seen by Provider: 08/26/18 11:41 History of Present Illness HPI narrative: 88-year-old male with a history of myelodysplastic syndrome, diabetes, osteoarthritis, GERD, glaucoma, hypertension is brought to the emergency department from his rehab facility [facility] for evaluation of anemia. Per the paperwork sent with the patient from the facility his hemoglobin was noted to be 5.3 this morning and they have sent him here for transfusion. The patient denies any complaints. States that he is actually feeling a little stronger since he has been in the rehab facility. He denies any chest pain, shortness of breath, abdominal pain, nausea, vomiting, diarrhea , numbness or tingling. He does note he felt a little lightheaded this morning but states this has resolved. No other complaints. Related Data Home Medications Medication Instructions Recorded Confirmed escitalopram oxalate 5 mg PO DAILY 06/03/18 08/18/18 terazosin 5 mg PO BID 06/03/18 08/18/18 magnesium 500 mg PO DAILY 07/22/18 08/18/18 ropinirole 1 mg PO TID 07/22/18 08/18/18 Previous Rx's Medication Instructions Recorded acetaminophen 650 mg PO Q6H PRN tab 07/24/18 levofloxacin 500 mg PO DAILY #7 tab 07/24/18 lactulose 30 ml PO DAILY PRN ml 07/26/18 Allergies Allergy/AdvReac Type Severity Reaction Status Date / Time amoxicillin Allergy Intermediate rash Verified 08/18/18 17:52 Penicillins Allergy Unknown none Verified 08/18/18 17:52 Review of Systems ROS: all other systems reviewed are negative [facility] Social History Social History Substance History: No History of Abuse Second Hand Smoke Exposure: No Smoking Status: Never smoker Tobacco Type: Cigarettes How Often Do You Have a Drink Containing Alcohol: Never Recent Travel in [facility] within the Last 8 Weeks: No Recent Out of Country Travel within the Last 8 Weeks: No Immunization History Tetanus Immunization: Unsure Exam Narrative Exam Narrative: GENERAL: Pleasant elderly male patient in no acute distress who is nontoxic appearing. SKIN: Warm and dry without any obvious rashes or lesions. HEAD: Normocephalic and atraumatic. EYES: No injection, drainage, or hyphema noted. PERRLA. EOMI. ENT: No nasal drainage noted. Oropharynx is clear NECK: Supple and the trachea is midline. CARDIOVASCULAR: Regular rate and rhythm. RESPIRATORY: Breath sounds are equal bilaterally with no accessory muscle use, wheezing, rhonchi, or crackles. GASTROINTESTINAL: Abdomen is soft, non-tender, and nondistended. MUSCULOSKELETAL: No obvious deformities, swelling, cyanosis, or ecchymosis is present throughout the upper and lower extremities. Patient has full range of motion without any signs of neurovascular compromise. Distal pulses are 2+ throughout. NEUROLOGICAL: Awake, alert, and oriented. Normal speech and gait. Cranial nerves are grossly intact. Course Initial Documented Vital Signs Temperature 96.5 F L 08/26/18 11:39 Pulse Rate 84 08/26/18 11:39 Respiratory Rate 17 08/26/18 11:39 Blood Pressure 124/62 08/26/18 11:39 Pulse Oximetry 100 08/26/18 11:39 Last Documented Vital Signs Temperature 96.5 F L 08/26/18 11:39 Pulse Rate 84 08/26/18 11:39 Respiratory Rate 17 08/26/18 11:39 Blood Pressure 124/62 08/26/18 11:39 Pulse Oximetry 94 L 08/26/18 12:11 Medical Decision Making KIM Attestation KIM supervised visit: Yes Attestation: Called nursing I, Dr. Lopez, have reviewed the advance practice practitioner's documentation and am in agreement, met with the patient face to face, made the diagnosis, and the medical decision making was done by me. *My assessment and Findings: pale, stable vitals vaishali lbe admitted for blood transfusion MDM Narrative Medical decision making narrative: 88-year-old male is brought to the emergency department from his rehab facility for evaluation of anemia. Patient is afebrile, vital signs are stable. Patient reports he had an episode of lightheadedness this morning. Otherwise he states he is doing well. IV access is obtained, labs of been drawn and sent. Patient is placed on cardiac telemetry and pulse oximetry monitoring. I did review the supervisor shed workers Dr. Santos's note from 08/14/18 which states the patient had recent EGD, colonoscopy and capsule endoscopy which confirmed there is no active bleeding. He has been started on Vidaza 9/18/18. Per his notes patient should be transfused if hemoglobin is below 7. CBC shows anemia with hemoglobin 6.6, this is improved from this morning which is 5.3. CMP is unremarkable. EKG shows sinus rhythm with no acute ST elevations or depressions. Patient will be transfused 2 units of prbcs. Will keep patient in observation for transfusion. Discussed with Dr. Fraga [facility] who accepts patient under his care. Medical Screen Exam Complete: Yes Emergency Medical Condition: Yes Differential Diagnosis Differential Diagnosis: Symptomatic anemia versus thrombocytopenia versus dehydration Lab Data Result diagrams: 08/26/18 12:05 08/26/18 12:05 Lab Results 08/26/18 08/26/18 Range/Units 12:05 12:05 WBC 2.4 L (4.0-11.0) th/mm3 RBC 1.86 L (4.50-5.90) mil/mm3 Hgb 6.6 L* (13.0-17.0) gm/dL Hct 19.3 L* (39.0-51.0) % MCV 103.7 H (80.0-100.0) fL MCH 35.3 H (27.0-34.0) pg MCHC 34.0 (32.0-36.0) % RDW 27.6 H (11.6-17.2) % Plt Count 53 L (150-450) th/mm3 MPV 8.6 (7.0-11.0) fL Prelim Diff (Auto) Manual diff required WBC Differential Manual diff final Seg Neuts % (Manual) 45 (16-70) % Lymphocytes % (Manual) 39 (9-44) % Monocytes % (Manual) 8 (0-8) % Eosinophils % (Manual) 1 (0-4) % Blast Cells % (Manual) 7 H (0-0) % Abs Neuts (Manual) 1.1 L (1.8-7.7) th/mm3 Differential Comment . Platelet Estimate Low L (Normal) Platelet Morphology Normal (Normal) Ovalocytes 1+ H (None) Keratocytes Occ H (None) Sodium 142 (136-145) meq/L Potassium 4.2 (3.5-5.1) meq/L Chloride 103 (98-107) meq/L Carbon Dioxide 32.2 H (21.0-32.0) meq/L Anion Gap 7 (5-15) meq/L BUN 12 (7-18) mg/dL Creatinine 0.63 (0.60-1.30) mg/dL Estimated GFR Greater than 89 (>89) mL/min Random Glucose 106 (74-106) mg/dL Calcium 8.0 L (8.5-10.1) mg/dL Total Bilirubin 0.4 (0.2-1.0) mg/dL AST 10 L (15-37) U/L ALT 13 (12-78) U/L Alkaline Phosphatase 120 H (45-117) U/L Total Protein 7.2 (6.4-8.2) g/dL Albumin 2.8 L (3.4-5.0) g/dL Discharge Plan Discharge Disposition Patient Disposition: 30 Still Patient Discharge Details Diagnosis: Anemia, Myelodysplasia (myelodysplastic syndrome) Physicians Team ED Provider: Jose Guadalupe Lopez ED Midlevel Provider: Dyan Baltazar Primary Care Provider: UNKNOWN, Attending Provider: Tristan Fraga Discharge Interventions Interventions: Vital Signs Last Done: 08/26/18 11:43 Status ED Status: Admitted Observation Patient
[2018-08-26 12:34] LABS: Alanine Aminotransferase 13 U/L (12-78); Albumin 2.8 g/dL (3.4-5.0); Anion Gap 7 meq/L (5-15); Aspartate Aminotransferase 10 U/L (15-37); Blood Urea Nitrogen 12 mg/dL (7-18); Carbon Dioxide 32.2 meq/L (21.0-32.0); Chloride 103 meq/L (98-107); Glomerular Filtration Rate Greater Than 89 mL/min (>89); Glucose,Random 106 mg/dL (74-106); Potassium 4.2 meq/L (3.5-5.1); Sodium 142 meq/L (136-145)
[2018-08-26 12:36] LABS: Alkaline Phosphatase 120 U/L (45-117); Total Protein 7.2 g/dL (6.4-8.2)
[2018-08-26 13:07] LABS: Mean Corpuscular Hemoglobin 35.3 pg (27.0-34.0); Mean Corpuscular Volume 103.7 fL (80.0-100.0); Mean Platelet Volume 8.6 fL (7.0-11.0); Platelet Count 53 th/mm3 (150-450); Red Blood Count 1.86 mil/mm3 (4.50-5.90); Red Cell Distribution Width 27.6 % (11.6-17.2); White Blood Count 2.4 th/mm3 (4.0-11.0)
[2018-08-26 13:13] LABS: Hematocrit 19.3 % (39.0-51.0); Hemoglobin 6.6 gm/dL (13.0-17.0)
[2018-08-26 13:25] LABS: Blast Cells 7 % (0-0); Eosinophils 1 % (0-4); Lymphocytes 39 % (9-44); Monocytes 8 % (0-8)
[2018-08-26 13:26] LABS: Ovalocytes 1+; Platelet Morphology Normal (Normal)
[2018-08-26] MEDS ORDERED: Sodium Chlor 0.9% Inj 250 ML IV.SIG SCH (14:00)
[2018-08-26] MEDS ORDERED: Acetaminophen 325 MG Tablet PO PRN (14:27)
--- NOTE | 2018-08-26 17:16 | P.HPIM ---
History of Present Illness Primary Care Physician: UNKNOWN Chief Complaint: Anemia History of Present Illness: Mr. Hagen is an 88 y/o male with myelodysplastic syndrome, pancytopenia, diabetes, osteoarthritis, GERD, glaucoma, and hypertension. Pt previously received Vidaza injection 07/29-08/05/[address] Santos. He was brought to the ED from his rehab facility [facility] for evaluation of anemia. The patient had labs drawn at the facility which reported that his hemoglobin was noted to be 5.3 this morning and they have sent him here for transfusion. He does note he felt a little lightheaded this morning but states this has resolved. States that he is actually feeling a little stronger since he has been in the rehab facility. He denies any chest pain, shortness of breath, abdominal pain, nausea , vomiting, diarrhea, numbness or tingling. Pts labs in the ED noted Hgb 6.6. Pt was ordered for 2 units PRBCs today. Past Medical Hx: Type 2 diabetes mellitus, diet controlled HTN BPH MDS with pancytopenia Hyperlipidemia GERD Compression fracture Past Surgical Hx Cholecystectomy Appendectomy Lumbar L5-S1 diskectomy Bilateral cataract extraction and lens implant Family Hx: Noncontributory Social Hx: Denies any alcohol, tobacco or illicit drug use Pt is at a local SNF, [facility] - Diagnosis (1) Myelodysplasia (myelodysplastic syndrome) (2) Anemia (3) Thrombocytopenia Review of Systems All other systems reviewed negative except as stated in HPI PMFSH - History History Provided By: Patient - Medical History Medical History: Medical History (Last Reviewed 08/27/18 @ 09:15 by Andi Mullins) Anemia BPH (benign prostatic hyperplasia) Compression fracture Disc degeneration Lower back pain MDS (myelodysplastic syndrome) Parkinson disease - Surgical History Surgical History: Surgical History (Last Reviewed 08/27/18 @ 09:15 by Andi Mullins) Hx of appendectomy Hx of cholecystectomy - Tobacco History Second Hand Smoke Exposure: No Smoking Status: Never smoker Tobacco Type: Cigarettes - Alcohol History How Often Do You Have a Drink Containing Alcohol: Never - Substance Use History Substance History: No History of Abuse - Travel History Recent Travel in the [place] Within the Last 8 Weeks: No Recent Travel Out of the Country Within the Last 8 Weeks: No - Immunization History Tetanus Immunization: Unsure Medications and Allergies Allergies Allergy/AdvReac Type Severity Reaction Status Date / Time amoxicillin Allergy Intermediate rash Verified 08/18/18 17:52 Penicillins Allergy Unknown none Verified 08/18/18 17:52 Home Medications Medication Instructions Recorded Confirmed Type escitalopram oxalate 5 mg PO DAILY 06/03/18 08/26/18 History terazosin 5 mg PO BID 06/03/18 08/26/18 History magnesium 500 mg PO DAILY 07/22/18 08/26/18 History ropinirole 1 mg PO TID 07/22/18 08/26/18 History Active Medications: Active Medications Acetaminophen (Tylenol) 650 mg PO Q4H PRN PRN Reason: Temp > 100.4 Al Hydroxide/Mg Hydroxide (Milk Of Irma Salinas) 30 ml PO Q12H PRN PRN Reason: Mild Constipation Sodium Chloride (Ns Inj) 250 mls @ 15 mls/hr IV.SIG ONCE ISHA Stop: 08/27/18 06:39 Ondansetron HCl (Zofran Inj) 4 mg IV.PUSH Q6H PRN PRN Reason: NAUSEA OR VOMITING Senna/Docusate Sodium (Letty-Colace) 1 tab PO BID ISHA Sodium Chloride (Ns Flush) 2 ml IV.FLUSH PRN PRN PRN Reason: FLUSH AFTER USING IV ACCESS Exam Vital signs: Vital Signs 08/26/18 11:39 08/26/18 12:10 08/26/18 12:11 Temperature 96.5 F L Pulse Rate 84 Respiratory Rate 17 Blood Pressure 124/62 Pulse Oximetry 100 94 L 94 L 08/26/18 14:52 08/26/18 16:00 Temperature 97.6 F Pulse Rate 79 76 Respiratory Rate 17 16 Blood Pressure 123/58 L 110/56 L Pulse Oximetry 100 95 Intake & Output 08/25/18 08/26/18 08/26/18 18:59 06:59 18:59 Weight 72.575 kg Narrative: GENERAL: NAD, AAOx3 SKIN: Warm and dry. HEENT: Atraumatic. Normocephalic. Pupils equal and round. No scleral icterus. No injection or drainage. No nasal bleeding or discharge. Mucous membranes pink and moist. NECK: Trachea midline. No JVD. CARDIO: Regular rate and rhythm. RESP: Clear to auscultation bilaterally. ABD: +BS, soft, non-tender, nondistended. EXT: Extremities without clubbing, cyanosis, or edema. No obvious deformities. NEURO: Awake and alert. No obvious cranial nerve deficits. Motor grossly within normal limits. Five out of 5 muscle strength in the arms and legs. Normal speech. PSYCHIATRIC: Appropriate mood and affect; insight and judgment normal. Results - Labs CBC & Chem 7: 08/27/18 04:24 08/26/18 12:05 Labs: Short CBC 08/26/18 Range/Units 12:05 WBC 2.4 L (4.0-11.0) th/mm3 Hgb 6.6 L* (13.0-17.0) gm/dL Hct 19.3 L* (39.0-51.0) % Plt Count 53 L (150-450) th/mm3 BMP 08/26/18 12:05 Sodium 142 Potassium 4.2 Chloride 103 Carbon Dioxide 32.2 H BUN 12 Creatinine 0.63 Calcium 8.0 L Liver Function 08/26/18 Range/Units 12:05 Total Bilirubin 0.4 (0.2-1.0) mg/dL AST 10 L (15-37) U/L ALT 13 (12-78) U/L Alkaline Phosphatase 120 H (45-117) U/L Albumin 2.8 L (3.4-5.0) g/dL Caprini VTE Risk Assessment Caprini VTE Risk Assessment: Moderate/High Risk (score >= 2) Caprini Risk Assessment Model: Point Value = 1 Point Value = 2 Point Value = 3 Point Value = 5 Age 41-60 Minor surgery BMI > 25 kg/m2 Swollen legs Varicose veins or History of unexplained or recurrent spontaneous Oral contraceptives or hormone replacement Sepsis (< 1 month) Serious lung disease, including pneumonia (< 1 month) Abnormal pulmonary function Acute myocardial infarction Congestive heart failure (< 1 month) History of inflammatory bowel disease Medical patient at bed rest Age 61-74 Arthroscopic surgery Major open surgery (> 45 min) Laparoscopic surgery (> 45 min) Malignancy Confined to bed (> 72 hours) Immobilizing plaster cast Central venous access Age >= 75 History of VTE Family history of VTE Factor V Leiden Prothrombin [id number] Lupus anticoagulant Anticardiolipin antibodies Elevated serum homocysteine Heparin-induced thrombocytopenia Other congenital or acquired thrombophilia Stroke (< 1 month) Elective arthroplasty Hip, pelvis, or leg fracture Acute spinal cord injury (< 1 month) Prophylaxis Regimen: Total Risk Factor Score Risk Level Prophylaxis Regimen 0-1 Low Early ambulation 2 Moderate Order ONE of the following: *Sequential Compression Device (SCD) *Heparin 5000 units SQ BID 3-4 Higher Order ONE of the following medications: *Heparin 5000 units SQ TID *Enoxaparin/Lovenox 40 mg SQ daily (WT < 150 kg, CrCl > 30 mL/min) *Enoxaparin/Lovenox 30 mg SQ daily (WT < 150 kg, CrCl > 10-29 mL/min) *Enoxaparin/Lovenox 30 mg SQ BID (WT < 150 kg, CrCl > 30 mL/min) AND/OR *Sequential Compression Device (SCD) 5 or more Highest Order ONE of the following medications: *Heparin 5000 units SQ TID (Preferred with Epidurals) *Enoxaparin/Lovenox 40 mg SQ daily (WT < 150 kg, CrCl > 30 mL/min) *Enoxaparin/Lovenox 30 mg SQ daily (WT < 150 kg, CrCl > 10-29 mL/min) *Enoxaparin/Lovenox 30 mg SQ BID (WT < 150 kg, CrCl > 30 mL/min) AND *Sequential Compression Device (SCD) Assessment and Plan - Assessment (1) Myelodysplasia (myelodysplastic syndrome) Code(s): D46.9 - Myelodysplastic syndrome, unspecified Status: Acute Plan: Acute on chronic anemia Pancytopenia MDS, high-grade, transfusion dependent - Pt is an 88 y/o male with myelodysplastic syndrome, diabetes, osteoarthritis, GERD, glaucoma, and hypertension. - He was brought to the ED from his rehab facility [facility] for evaluation of anemia. The patient had labs drawn at the facility which reported that his hemoglobin was noted to be 5.3 this morning and they have sent him here for transfusion. - Pt follows with Dr. Santos for his MDS and received Vidaza on 07/29/18-08/05/18. Per Dr. Santos's last night on 08/14/18 pt to be transfused for Hgb below 7. - Pts labs in the ED noted Hgb 6.6. Pt was ordered for 2 units PRBCs today. - Pt is planned to return to [facility] after receiving his blood transfusion - He will need his labs monitored closely - Pt will need to followup with Dr. Santos in 1 week. (2) Anemia Code(s): D64.9 - Anemia, unspecified Status: Acute (3) Thrombocytopenia Code(s): D69.6 - Thrombocytopenia, unspecified Status: Chronic - Attending Attestation Patient examined. Assessment and plan formulated with Jeni ESPINO I agree with the above. Patient examined. Assessment and plan formulated with Jeni ESPINO I agree with the above. H&P: Quality - VTE Deep Vein Thrombosis/Pulmonary Embolism Present on Admission: No (2) Anemia Qualifiers: Anemia type: other cause Other causes of anemia: chronic disease, other Qualified Code(s): D63.8 - Anemia in other chronic diseases classified elsewhere
[2018-08-26 22:41] VITALS: RESP 16
[2018-08-26] MEDS: Senna/Docusate Sodium 8.6/50 MG Tablet PO SCH (23:59)
[2018-08-27 06:25] LABS: Baso % (Auto) 0.4 % (0.0-2.0); Eos % (Auto) 1.4 % (0.0-4.0); Hematocrit 23.5 % (39.0-51.0); Hemoglobin 8.1 gm/dL (13.0-17.0); Lymph # (Auto) 1.2 th/mm3 (1.0-4.8); Lymph % (Auto) 42.3 % (9.0-44.0); Mean Corpuscular HGB Conc 34.3 % (32.0-36.0); Mean Corpuscular Hemoglobin 33.5 pg (27.0-34.0); Mean Corpuscular Volume 97.6 fL (80.0-100.0); Mean Platelet Volume 7.9 fL (7.0-11.0); Mono # (Auto) 0.5 th/mm3 (0.0-0.9); Mono % (Auto) 18.4 % (0.0-8.0); Neut # (Auto) 1.1 th/mm3 (1.8-7.7); Neut % (Auto) 37.5 % (16.0-70.0); Platelet Count 47 th/mm3 (150-450); Red Blood Count 2.41 mil/mm3 (4.50-5.90); White Blood Count 2.8 th/mm3 (4.0-11.0)
[2018-08-27 07:38] VITALS: BP 144/66; PULSE 78; TEMP 98.2; O2SAT 95
[2018-08-27 09:53] LABS: Blast Cells 7 % (0-0); Lymphocytes 35 % (9-44); Monocytes 18 % (0-8); Platelet Morphology Normal (Normal)
[2018-08-27] MEDS: Senna/Docusate Sodium 8.6/50 MG Tablet PO SCH (10:42)
--- NOTE | 2018-08-27 19:25 | ECG ---
Date Performed: 08/26/2018 Time Performed: 11:38:03 PTAGE: 88 years EKG: Sinus rhythm MINIMAL VOLTAGE CRITERIA FOR LVH, CONSIDER NORMAL VARIANT BORDERLINE ECG PREVIOUS TRACING : 07/25/2018 14.59 DOCTOR: Jose Gutierrez Interpretating Date/Time 08/27/2018 19:24:07
== END 2018-08-27 18:22 ==
LOC: NEPC 11:05 → NEDA 11:05 → NEPGCP 14:53
PROVIDERS: ADMIT Hospitalist; ATTEND Hospitalist

== ENCOUNTER 2019-01-06 09:37 | Observation (INO) ==
--- NOTE | 2019-01-06 10:28 | ED ---
HPI General Chief complaint: Recheck/Abnormal Lab/Rx Stated complaint: Poss blood transfusion Time Seen by Provider: 01/06/19 10:14 Source: patient Mode of arrival: wheelchair Limitations: physical limitation History of Present Illness HPI narrative: 88-year-old male was brought in from local retirement for blood transfusion. Patient has history of myelodysplastic syndrome and anemia. Outpatient CBC lab test done yesterday with hemoglobin of 6.2 and 6.5. Patient was advised to be brought to [facility] for blood transfusion. Patient denies any headache. Patient denies any chest pain or shortness of breath. Patient denies abdominal pain. Patient denies any focal weakness or numbness of extremity. Patient denies any blood in the stool. Patient has frequent blood transfusion secondary to anemia. Patient also has history of compression fracture T2, Parkinson disease, hypertension, diabetes. Onset (ago): hour(s) Severity: moderate Relieving factors: none Exacerbating factors: none Associated symptoms: Reports denies other symptoms Treatments prior to arrival: Reports none Related Data Home Medications Medication Instructions Recorded Confirmed terazosin 5 mg PO DAILY 06/03/18 12/17/18 ropinirole 1 mg PO TID 07/22/18 12/17/18 escitalopram oxalate [Lexapro] 5 mg PO DAILY 12/06/18 12/17/18 Previous Rx's Medication Instructions Recorded dextromethorphan-guaifenesin 10 ml PO Q6H PRN ml 12/19/18 heparin (porcine) 5,000 units SUBCUT Q12HR ml 12/19/18 ipratropium-albuterol 1 amp NEB Q6HR NEB PRN ml 12/19/18 potassium chloride 10 meq PO DAILY cap 12/19/18 sennosides [Senna Lax] 17.2 mg PO Q12H PRN tab 12/19/18 Allergies Allergy/AdvReac Type Severity Reaction Status Date / Time amoxicillin Allergy Intermediate rash Verified 01/06/19 10:30 Penicillins Allergy Unknown none Verified 01/06/19 10:30 Review of Systems ROS: all other systems reviewed are negative PMFSH History History Provided By: Patient Medical History Medical History Anemia (Acute) BPH (benign prostatic hyperplasia) (Acute) Compression fracture (Acute) Disc degeneration (Acute) Edema of both legs (Acute) Lower back pain (Acute) MDS (myelodysplastic syndrome) (Acute) Parkinson disease (Acute) Surgical History Surgical History Hx of appendectomy (Acute) Hx of cholecystectomy (Acute) Social History Social History Substance History: No History of Abuse Second Hand Smoke Exposure: No Smoking Status: Never smoker Tobacco Type: Cigarettes How Often Do You Have a Drink Containing Alcohol: Never Recent Travel in [facility] within the Last 8 Weeks: No Recent Out of Country Travel within the Last 8 Weeks: No Exam Narrative Exam Narrative: GENERAL: Well-nourished, well-developed patient. SKIN: Focused skin assessment warm/dry. HEAD: Normocephalic. EYES: No scleral icterus. No injection or drainage. NECK: Supple, trachea midline. No JVD or lymphadenopathy. CARDIOVASCULAR: Regular rate and rhythm without murmurs, gallops, or rubs. RESPIRATORY: Breath sounds equal bilaterally. No accessory muscle use. GASTROINTESTINAL: Abdomen soft, non-tender, nondistended. MUSCULOSKELETAL: No cyanosis, or edema. BACK: Nontender without obvious deformity. No CVA tenderness. Neurologic exam normal. Course Initial Documented Vital Signs Pulse Rate 81 01/06/19 10:24 Pulse Oximetry 98 01/06/19 10:24 Last Documented Vital Signs Temperature 97.9 F 01/06/19 10:36 Pulse Rate 81 01/06/19 10:36 Respiratory Rate 16 01/06/19 10:36 Blood Pressure 159/64 H 01/06/19 10:36 Pulse Oximetry 97 01/06/19 10:36 Medical Decision Making MDM Narrative Medical decision making narrative: 88-year-old male with anemia and in need of blood transfusion. History of myelodysplastic syndrome. Medical Screen Exam Complete: Yes Emergency Medical Condition: Yes Differential Diagnosis Differential Diagnosis: Differential diagnosis including anemia, thrombocytopenia. Lab Data Lab results reviewed: Yes I reviewed the patient's lab results. Result diagrams: 01/06/19 10:15 01/06/19 10:15 Lab Results 01/06/19 01/06/19 01/06/19 Range/Units 10:15 10:15 11:06 WBC 2.0 L (4.0-11.0) th/mm3 RBC 2.03 L (4.50-5.90) mil/mm3 Hgb 7.1 L (13.0-17.0) gm/dL Hct 20.7 L* (39.0-51.0) % MCV 101.8 H (80.0-100.0) fL MCH 35.0 H (27.0-34.0) pg MCHC 34.4 (32.0-36.0) % RDW 30.8 H (11.6-17.2) % Plt Count 65 L (150-450) th/mm3 MPV 8.0 (7.0-11.0) fL Prelim Diff (Auto) Manual diff required Differential Comment . Sodium 140 (136-145) meq/L Potassium 4.3 (3.5-5.1) meq/L Chloride 103 (98-107) meq/L Carbon Dioxide 32.3 H (21.0-32.0) meq/L Anion Gap 5 (5-15) meq/L BUN 15 (7-18) mg/dL Creatinine 0.74 (0.60-1.30) mg/dL Estimated GFR Greater than 89 (>89) mL/min Random Glucose 141 H (74-106) mg/dL Calcium 8.2 L (8.5-10.1) mg/dL MTS Gel Crossmatch See Detail Discharge Plan Discharge Disposition Patient Disposition: ED Admit(ED Internal Use Only) Discharge Details Diagnosis: Anemia, Myelodysplasia (myelodysplastic syndrome), Thrombocytopenia Physicians Team ED Provider: Joe Navas Primary Care Provider: UNKNOWN, Rxs /Orders / Referrals /Forms Prescriptions: No Action ropinirole 1 mg Tablet 1 mg PO TID RF: 0 terazosin 5 mg Capsule 5 mg PO DAILY RF: 0 escitalopram oxalate [Lexapro] 5 mg Tablet 5 mg PO DAILY RF: 0 sennosides [Senna Lax] 8.6 mg Tablet 17.2 mg PO Q12H PRN (Reason: Moderate Constipation) RF: 0 potassium chloride 10 mEq Capsule, Extended Release 10 meq PO DAILY RF: 0 ipratropium-albuterol 0.5 mg-3 mg(2.5 mg base)/3 mL Solution For Nebulization 1 amp NEB Q6HR NEB PRN (Reason: Dyspnea) RF: 0 dextromethorphan-guaifenesin 10-100 mg/5 mL Syrup 10 ml PO Q6H PRN (Reason: Cough) RF: 0 heparin (porcine) 10,000 unit/mL Solution 5,000 units subcut Q12HR RF: 0 Discharge Interventions Interventions: Vital Signs Last Done: 01/06/19 10:36 Status ED Status: With Doctor
[2019-01-06 10:44] LABS: Mean Corpuscular HGB Conc 34.4 % (32.0-36.0); Mean Corpuscular Volume 101.8 fL (80.0-100.0); Platelet Count 65 th/mm3 (150-450); Red Blood Count 2.03 mil/mm3 (4.50-5.90); Red Cell Distribution Width 30.8 % (11.6-17.2)
[2019-01-06 10:49] LABS: Hemoglobin 7.1 gm/dL (13.0-17.0)
[2019-01-06 10:50] LABS: Hematocrit 20.7 % (39.0-51.0)
[2019-01-06] MEDS ORDERED: Sodium Chlor 0.9% Inj 250 ML IV.SIG SCH (11:00)
[2019-01-06 11:05] LABS: Anion Gap 5 meq/L (5-15); Blood Urea Nitrogen 15 mg/dL (7-18); Calcium 8.2 mg/dL (8.5-10.1); Carbon Dioxide 32.3 meq/L (21.0-32.0); Chloride 103 meq/L (98-107); Glomerular Filtration Rate Greater Than 89 mL/min (>89); Glucose,Random 141 mg/dL (74-106); Potassium 4.3 meq/L (3.5-5.1); Sodium 140 meq/L (136-145)
[2019-01-06 11:27] LABS: Eosinophils 3 % (0-4)
[2019-01-06 11:30] LABS: Blast Cells 3 % (0-0); Lymphocytes 62 % (9-44); Monocytes 9 % (0-8)
[2019-01-06 11:31] LABS: Acanthocytes Occ; Platelet Morphology Normal (Normal)
[2019-01-06] MEDS ORDERED: Acetaminophen 325 MG Tablet PO PRN (12:02)
--- NOTE | 2019-01-06 12:18 | P.HPIM ---
History of Present Illness Chief Complaint: anemia History of Present Illness: Mr. Hagen is an 88 y/o male with myelodysplastic syndrome, pancytopenia, diabetes, osteoarthritis, GERD, glaucoma, and hypertension. Patient states he was called by his vp purchasing Dr. Santos and was informed that his recent blood work showed his low hemoglobin was and that he needed to come in for blood transfusion. Outpatient CBC lab test done yesterday with hemoglobin of 6.2 and 6.5. Patient was advised to be brought to [facility] for blood transfusion. Patient states that he has been feeling well overall. Denies any chest pain, shortness of breath, nausea, vomiting, abdominal pain, swelling of the extremities, black or bloody stool. No other complaints. Past Medical Hx: Type 2 diabetes mellitus, diet controlled HTN BPH MDS with pancytopenia Hyperlipidemia GERD Compression fracture Past Surgical Hx Cholecystectomy Appendectomy Lumbar L5-S1 diskectomy Bilateral cataract extraction and lens implant Family Hx: Noncontributory Social Hx: Denies any alcohol, tobacco or illicit drug use Pt lives at home with private caregivers Medications and Allergies Allergies Allergy/AdvReac Type Severity Reaction Status Date / Time amoxicillin Allergy Intermediate rash Verified 01/06/19 10:30 Penicillins Allergy Unknown none Verified 01/06/19 10:30 Home Medications Medication Instructions Recorded Confirmed Type terazosin 5 mg PO DAILY 06/03/18 01/06/19 History ropinirole 1 mg PO TID 07/22/18 01/06/19 History escitalopram oxalate [Lexapro] 5 mg PO DAILY 12/06/18 01/06/19 History Active Medications: Active Medications Acetaminophen (Tylenol) 650 mg PO Q4H PRN PRN Reason: Temp > 100.4 Al Hydroxide/Mg Hydroxide (Milk Of Irma Salinas) 30 ml PO Q12H PRN PRN Reason: Mild Constipation Sodium Chloride (Ns Inj) 250 mls @ 15 mls/hr IV.SIG ONCE ISHA Stop: 01/07/19 03:39 Ondansetron HCl (Zofran Inj) 4 mg IV.PUSH Q6H PRN PRN Reason: NAUSEA OR VOMITING Senna/Docusate Sodium (Letty-Colace) 1 tab PO BID ISHA Sodium Chloride (Ns Flush) 2 ml IV.FLUSH BID ISHA Sodium Chloride (Ns Flush) 2 ml IV.FLUSH PRN PRN PRN Reason: FLUSH AFTER USING IV ACCESS Physical Exam Vital signs: Last Vital Signs Temp 97.9 F 01/06/19 10:36 Pulse 81 01/06/19 10:36 Resp 16 01/06/19 10:36 BP 159/64 H 01/06/19 10:36 Pulse Ox 97 01/06/19 10:36 Narrative: GENERAL: This is a elderly chronically ill appearing 88 year old male patient CARDIOVASCULAR: Regular rate and rhythm RESPIRATORY: Clear to auscultation. Breath sounds equal bilaterally. GASTROINTESTINAL: Abdomen soft, non-tender, nondistended. Normal active bowel sounds MUSCULOSKELETAL: Extremities without clubbing, cyanosis, or edema. NEURO: Alert & Oriented. Moves all ext x4 Results Labs CBC & Chem 7: 01/06/19 10:15 01/06/19 10:15 Caprini VTE Risk Assessment Caprini VTE Risk Assessment: No/Low Risk (score <= 1) Caprini Risk Assessment Model: Point Value = 1 Point Value = 2 Point Value = 3 Point Value = 5 Age 41-60 Minor surgery BMI > 25 kg/m2 Swollen legs Varicose veins or History of unexplained or recurrent spontaneous Oral contraceptives or hormone replacement Sepsis (< 1 month) Serious lung disease, including pneumonia (< 1 month) Abnormal pulmonary function Acute myocardial infarction Congestive heart failure (< 1 month) History of inflammatory bowel disease Medical patient at bed rest Age 61-74 Arthroscopic surgery Major open surgery (> 45 min) Laparoscopic surgery (> 45 min) Malignancy Confined to bed (> 72 hours) Immobilizing plaster cast Central venous access Age >= 75 History of VTE Family history of VTE Factor V Leiden Prothrombin [id number] Lupus anticoagulant Anticardiolipin antibodies Elevated serum homocysteine Heparin-induced thrombocytopenia Other congenital or acquired thrombophilia Stroke (< 1 month) Elective arthroplasty Hip, pelvis, or leg fracture Acute spinal cord injury (< 1 month) Prophylaxis Regimen: Total Risk Factor Score Risk Level Prophylaxis Regimen 0-1 Low Early ambulation 2 Moderate Order ONE of the following: *Sequential Compression Device (SCD) *Heparin 5000 units SQ BID 3-4 Higher Order ONE of the following medications: *Heparin 5000 units SQ TID *Enoxaparin/Lovenox 40 mg SQ daily (WT < 150 kg, CrCl > 30 mL/min) *Enoxaparin/Lovenox 30 mg SQ daily (WT < 150 kg, CrCl > 10-29 mL/min) *Enoxaparin/Lovenox 30 mg SQ BID (WT < 150 kg, CrCl > 30 mL/min) AND/OR *Sequential Compression Device (SCD) 5 or more Highest Order ONE of the following medications: *Heparin 5000 units SQ TID (Preferred with Epidurals) *Enoxaparin/Lovenox 40 mg SQ daily (WT < 150 kg, CrCl > 30 mL/min) *Enoxaparin/Lovenox 30 mg SQ daily (WT < 150 kg, CrCl > 10-29 mL/min) *Enoxaparin/Lovenox 30 mg SQ BID (WT < 150 kg, CrCl > 30 mL/min) AND *Sequential Compression Device (SCD) Assessment and Plan Plan Acute on chronic anemia Pancytopenia MDS, high-grade, transfusion dependent - Pt is an 88 y/o male with myelodysplastic syndrome follows with Dr. Santos, diabetes, osteoarthritis, GERD, glaucoma, and hypertension. - The patient had outpatient labs drawn at the facility which reported that his hemoglobin was noted to be 6.2 this morning and he was referred here for transfusion. - Pt follows with Dr. Santos for his MDS. Per Dr. Santos's last night on 10/16/18 pt to be transfused for Hgb below 7. - Pts labs in the ED noted Hgb 7.1 - ER provider ordered for 2 units PRBCs - Pt is planned to DC'd after transfusion complete - He will need his labs monitored closely - Pt will need to followup with Dr. Santos in 1 week. Attending Attestation Patient examined. Assessment and plan formulated with Lis Linares PA-C. I agree with the above. MDS. 2 units prbc and send back to snf in AM
[2019-01-06] MEDS: Senna/Docusate Sodium 8.6/50 MG Tablet PO SCH (21:44)
[2019-01-07 07:55] VITALS: BP 125/60; PULSE 78; RESP 16; TEMP 97.7; O2SAT 92
[2019-01-07 10:10] LABS: Hematocrit 24.1 % (39.0-51.0); Hemoglobin 8.4 gm/dL (13.0-17.0)
[2019-01-07] MEDS: Senna/Docusate Sodium 8.6/50 MG Tablet PO SCH (10:21)
--- NOTE | 2019-01-07 13:46 | P.PNIM ---
Subjective Interval history: Pt received 2 units PRBCs and is planned for d/c to SNF today No new complaints Physical Exam Vital signs: Last Vital Signs Temp 97.7 F 01/07/19 07:54 Pulse 78 01/07/19 07:54 Resp 16 01/07/19 07:54 BP 125/60 01/07/19 07:54 Pulse Ox 92 L 01/07/19 07:54 Narrative: GENERAL: This is a elderly chronically ill appearing 88 year old male patient CARDIOVASCULAR: Regular rate and rhythm RESPIRATORY: Clear to auscultation. Breath sounds equal bilaterally. GASTROINTESTINAL: Abdomen soft, non-tender, nondistended. Normal active bowel sounds MUSCULOSKELETAL: Extremities without clubbing, cyanosis, or edema. NEURO: Alert & Oriented. Moves all ext x4 Results Labs CBC & Chem 7: 01/07/19 05:30 01/06/19 10:15 Assessment and Plan Plan Acute on chronic anemia Pancytopenia MDS, high-grade, transfusion dependent - Pt is an 88 y/o male with myelodysplastic syndrome follows with Dr. Santos, diabetes, osteoarthritis, GERD, glaucoma, and hypertension. - The patient had outpatient labs drawn at the facility which reported that his hemoglobin was noted to be 6.2 this morning and he was referred here for transfusion. - Pt follows with Dr. Santos for his MDS. Per Dr. Santos's last night on 10/16/18 pt to be transfused for Hgb below 7. - Pts labs in the ED noted Hgb 7.1 - Pt received 2 units PRBCs and repeat Hgb 8.4 on 01/07 - Pt is planned to d/c to SNF today - Pt will need to followup with Dr. Santos in 1 week. Progress Note: Quality VTE Deep Vein Thrombosis/Pulmonary Embolism Present on Admission: No
== END 2019-01-07 12:44 ==
LOC: NEPE 09:37 → NEDA 09:37 → NEPHCDU 13:30
PROVIDERS: ADMIT Hospitalist; ATTEND Hospitalist
CPT/HCPCS: 36430; 80048; 85014; 85018; 85025; 86077; 86850; 86860; 86870; 86880; 86900; 86901; 86902; 86920; 86922; 96360; 96361; 99285; G0378; J7050; P9016